=== PATIENT | female | born 1975 | race American Indian/Alaskan Native ===

== ENCOUNTER 2017-05-22 12:58 | Inpatient (IN) | payer MEDICARE, OTHER ==
[2017-05-22 13:08] VITALS: BMI 46.7
--- NOTE | 2017-05-22 13:23 | ED PDOC ---
Arrival/HPI - General Time Seen by Provider: 05/22/17 13:01 - History of Present Illness Narrative History of Present Illness (Text): 05/22/17 13:20 42 year old female with past medical history of DM, HLD, anemia presents for palpitations ongoing for past few days. Patient states that feels like her heart is racing at random times for past few days. This is associated with substernal chest discomfort and shortness of breath. Heart racing occurs at random times. Patient denies having any F/C, recent travels, recent illnesses or sick contacts. Patient also complains of right foot swelling ongoing for a few days. Patient denies having any LE pain though. She denies having any hx of blood clots, no family history of CAD. Patient denies tobacco, ETOH or drug use. Patient does state that she had heavy periods in last few months and periods lasted for about 2 weeks at a time. Time/Duration: < week Symptom Onset: Gradual Symptom Course: Unchanged Context: Home Past Medical History - Provider Review Nursing Documentation Reviewed: Yes - Travel History Have you recently traveled outside [place] w/in the past 3 mons?: No - Infectious Disease Hx of Infectious Diseases: None - Tetanus Immunization Tetanus Immunization: Unknown - Cardiac Hx Cardiac Disorders: Yes (cholesterol) - Pulmonary Hx Respiratory Disorders: No - Neurological Hx Neurological Disorder: No - HEENT Hx HEENT Disorder: No - Renal Hx Renal Disorder: No - Endocrine/Metabolic Hx Endocrine Disorders: Yes Hx Diabetes Mellitus Type 2: Yes - Hematological/Oncological Hx Blood Disorders: Yes Hx Anemia: Yes - Integumentary Hx Dermatological Disorder: No Hx Basal Cell Carcinoma: No - Musculoskeletal/Rheumatological Hx Musculoskeletal Disorders: Yes Hx Falls: Yes - Gastrointestinal Hx Gastrointestinal Disorders: No - Genitourinary/Gynecological Hx Genitourinary Disorders: No - Psychiatric Hx Psychophysiologic Disorder: No Hx Physical Abuse: No Hx Substance Use: No - Anesthesia Hx Anesthesia: No - Suicidal Assessment Feels Threatened In Home Enviroment: No Family/Social History - Physician Review Nursing Documentation Reviewed: Yes Family/Social History: No Known Family HX. denies: CAD/KS, Blood Clots Smoking Status: Never Smoked Hx Alcohol Use: No Hx Substance Use: No Hx Substance Use Treatment: No Allergies/Home Meds Allergies/Adverse Reactions: Allergies shrimp Adverse Reaction (Severe, Uncoded 07/29/16 15:15) ANAPHYLAXIS Home Medications: Home Meds Medication Instructions Recorded Confirmed Rosuvastatin Calcium [Crestor] 10 mg PO DAILY 01/17/16 05/22/17 Ferrous Sulfate [Feosol] 1 tab PO DAILY 05/22/17 05/22/17 Fluconazole [Diflucan] 150 mg PO DAILY 05/22/17 05/22/17 Glimepiride [amaRYL] 4 mg PO DAILY 05/22/17 05/22/17 Review of Systems - Review of Systems Constitutional: Normal. absent: Fatigue, Fevers Eyes: Normal. absent: Vision Changes, Photophobia ENT: Normal. absent: Sore Throat, Rhinorrhea, Sinus Congestion Respiratory: SOB (occasional). absent: Cough, Wheezing Cardiovascular: Chest Pain (occasional ), Palpitations (occasional ). absent: Edema, Calf Pain, Orthopnea, Syncope Gastrointestinal: Normal. absent: Abdominal Pain, Constipation, Diarrhea, Nausea, Vomiting Genitourinary Female: Normal. absent: Dysuria, Frequency, Vaginal Bleeding Musculoskeletal: Normal. absent: Arthralgias, Back Pain, Neck Pain Skin: Normal. absent: Rash, Pruritis, Skin Lesions Neurological: Normal. absent: Headache, Dizziness Endocrine: Normal. absent: Diaphoresis, Polyuria Hemo/Lymphatic: Normal. absent: Adenopathy, Easy Bleeding Physical Exam Vital Signs Reviewed: Yes Vital Signs Temp Pulse Resp BP Pulse Ox 05/22/17 15:14 90 20 125/74 100 05/22/17 14:13 84 18 121/67 100 05/22/17 13:32 98 H 18 120/65 97 05/22/17 12:58 98.1 F 106 H 15 139/80 99 Temperature: Afebrile Blood Pressure: Normal Pulse: Tachycardic Respiratory Rate: Normal Appearance: Positive for: Well-Appearing, Non-Toxic, Comfortable Pain Distress: None Mental Status: Positive for: Alert and Oriented X 3 Finger Stick Blood Glucose: 247 - Systems Exam Head: Present: Atraumatic, Normocephalic Extroacular Muscles: Present: EOMI Mouth: Present: Moist Mucous Membranes Neck: Present: Normal Range of Motion Respiratory/Chest: Present: Clear to Auscultation, Good Air Exchange. No: Respiratory Distress, Accessory Muscle Use, Wheezes, Rales, Rhonchi Cardiovascular: Present: Regular Rate and Rhythm, Normal S1, S2. No: Murmurs, Rub, Gallop, Muffled Abdomen: Present: Normal Bowel Sounds. No: Tenderness, Distention, Peritoneal Signs, Rebound, Guarding Rectal: Present: Gross Blood (likely from vaginal source), Normal Rectal Tone. No: Occult Blood, Rectal Tenderness, Melena, Hemorrhoids, Fissures Upper Extremity: Present: Normal Inspection. No: Cyanosis, Edema Lower Extremity: Present: Normal Inspection, NORMAL PULSES, Normal ROM. No: Edema, CALF TENDERNESS, Yannick's Sign, Tenderness, Swelling Neurological: Present: GCS=15, Speech Normal Skin: Present: Warm, Dry, Normal Color. No: Rashes Psychiatric: Present: Alert, Oriented x 3, Normal Insight, Normal Concentration Medical Decision Making ED Course and Treatment: 05/22/17 13:26 42 year old female presents for palpitations, chest discomfort intermittently. Will check, CBC, CMP, cardiac enzymes, D dimer, PT, PTT, type and screen, CXR and EKG. 05/22/17 14:15 Patient is noted to have acute anemia. Spoke with Dr. Wild who accepts patient for observation under hospitalists service. Will order 1 unit of blood. 05/22/17 14:40 Rectal exam done with RN wound/ostomy nurse in room shows no active rectal bleeding but a lot of vaginal bleeding. 05/22/17 14:41 Consent for blood transfusion is obtained. - Lab Interpretations Narrative Lab Interpretation (Text): 05/22/17 14:39 Hgb is noted to be 8.6 (previously 10.8) Lab Results: 05/22/17 13:30 05/22/17 13:30 Lab Results 05/22/17 13:40: Blood Type O POSITIVE, Antibody Screen Positive, Antibody Identification Anti K, Crossmatch See Detail, BBK History Checked Patient has bt 05/22/17 13:30: TSH 3rd Generation 1.30 05/22/17 13:30: Triglycerides 153, Cholesterol 132, LDL Cholesterol Direct 70, HDL Cholesterol 51 05/22/17 13:30: Hemoglobin A1c 9.3 H 05/22/17 13:30: Iron 15 L, TIBC 355, % Saturation 4 L 05/22/17 13:30: Ferritin 8.5, Vitamin B12 600, Folate 9.0 05/22/17 13:30: Sodium 139, Potassium 3.5 L, Chloride 105, Carbon Dioxide 26, Anion Gap 12, BUN 10, Creatinine 0.6, Est GFR ( Amer) > 60, Est GFR (Non- Af Amer) > 60, Random Glucose 247 H, Calcium 8.9, Total Bilirubin 0.1 L, AST 28 , ALT 40, Alkaline Phosphatase 65, Lactate Dehydrogenase 474, Total Creatine Kinase 200, Troponin I < 0.01, Total Protein 7.1, Albumin 3.6, Globulin 3.5, Albumin/Globulin Ratio 1.0 L 05/22/17 13:30: PT 10.9, INR 1.01, APTT 24.9, D-Dimer, Quantitative 0.25 05/22/17 13:30: WBC 6.8 D, RBC 3.10 L, Hgb 8.6 L, Hct 27.0 L, MCV 87.1, MCH 27.7, MCHC 31.9, RDW 16.5 H, Plt Count 337, MPV 10.2 05/22/17 13:14: POC Glucose (mg/dL) 247 H - RAD Interpretation Narrative RAD Interpretations (Text): 05/22/17 13:29 No active disease Radiology Orders: 05/22/17 13:18 CHEST PORTABLE [RAD] Stat Cement Mason Apprentice: ED Physician - EKG Interpretation EKG Interpretation (Text): 05/22/17 14:40 sinus tachycardia at HR of 103. Normal axis, normal intervals. No ST changes noted Interpreted by ED Physician: Yes Type: 12 lead EKG - Medication Orders Current Medication Orders: Glimepiride (Amaryl) 4 mg PO DAILY [facility] Insulin Human Regular (Humulin R Low) 0 units SC ACHS [facility] PRN Reason: Protocol Last Admin: 05/22/17 22:18 Dose: 2 units Pantoprazole Sodium (Protonix Inj) 40 mg IVP DAILY [facility] Last Admin: 05/22/17 17:36 Dose: 40 mg Discontinued Medications Pneumococcal Polyvalent Vaccine (Pneumovax 23 Vaccine) 0.5 ml IM .ONCE ONE Stop: 05/22/17 21:33 Potassium Chloride (K-Dur 20 Meq Er Tab) 20 meq PO STAT STA Stop: 05/22/17 16:36 Last Admin: 05/22/17 17:35 Dose: 20 meq Disposition/Present on Arrival - Present on Arrival Any Indicators Present on Arrival: Yes History of DVT/PE: No History of Uncontrolled Diabetes: Yes Urinary Catheter: No History of Decub. Ulcer: No History Surgical Site Infection Following: None - Disposition Have Diagnosis and Disposition been Completed?: Yes Diagnosis: Symptomatic anemia Disposition: HOSPITALIZED Disposition Time: 14:15 Patient Plan: Admission, Observation Patient Problems: Current Active Problems Problem Status Onset Symptomatic anemia Acute Condition: STABLE
[2017-05-22 13:45] LABS: MEAN CELL VOLUME 87.1 fl (80.0-105.0); MEAN CORPUSCULAR HEMOGLOBIN 27.7 pg (25.0-35.0); MEAN CORPUSCULAR HGB CONC 31.9 g/dl (31.0-37.0); MEAN PLATELET VOLUME 10.2 fl (7.0-11.0); RED CELL DISTRIBUTION WIDTH 16.5 % (11.5-14.5); WHITE BLOOD COUNT 6.8 10^3/ul (4.5-11.0)
[2017-05-22 13:58] LABS: ALKALINE PHOSPHATASE 65 U/L (38-133); ALT/SGPT 40 U/L (7-56); AST/SGOT 28 U/L (15-39); BILIRUBIN,TOTAL 0.1 mg/dL (0.2-1.3); BLOOD UREA NITROGEN 10 mg/dL (7-21); CALCIUM 8.9 mg/dL (8.4-10.5); CARBON DIOXIDE 26 mmol/L (21-33); CHLORIDE 105 mmol/L (98-107); D DIMER 0.25 mg/L FEU (0-0.50); GFR AFRICAN-AMERICAN > 60; GLUCOSE,RANDOM 247 mg/dL (70-110); INR 1.01 (0.93-1.08); PARTIAL THROMBOPLASTIN TIME 24.9 Seconds (23.7-30.8); POTASSIUM 3.5 mmol/L (3.6-5.0); SODIUM 139 mmol/L (132-148); TOTAL PROTEIN 7.1 g/dL (5.8-8.3)
[2017-05-22 14:09] LABS: TROPONIN I < 0.01 ng/mL
--- NOTE | 2017-05-22 14:46 | RAD ---
HISTORY: chest discomfort COMPARISON: 01/17/2016. FINDINGS: LUNGS: The lungs are well inflated and clear. PLEURA: No significant pleural effusion identified, no pneumothorax apparent. CARDIOVASCULAR: Normal. OSSEOUS STRUCTURES: No significant abnormalities. VISUALIZED UPPER ABDOMEN: Normal. OTHER FINDINGS: None. IMPRESSION: No active pulmonary disease.
[2017-05-22 14:49] LABS: IRON 15 ug/dL (45-180)
[2017-05-22] MEDS ORDERED: Potassium Chloride 20 mEq ER Tab PO STA (16:35)
[2017-05-22 17:19] LABS: CHOLESTEROL 132 mg/dL (130-200)
--- NOTE | 2017-05-22 19:07 | CP.PCM.HP ---
Addendum entered and electronically signed by Velma Gonzalez DO 05/22/17 19:16: Hgb/Hct 8.6/27.0 RDW 16.5 MCV 87.1 D-dimer 0.25 Iron 15 TIBC 355 % Saturation 4 Lipid Panel TG 153 Cholesterol 132 LDL 70 HDL 51 TSH 1.30 Consult: Cardio Consult: Dr. Allen [employer] GRADER consult: Dr. Zuluaga Original Note: <Velma Gonzalez - Last Filed: 05/22/17 18:59> History of Present Illness - History of Present Illness History of Present Illness: History and Physical for Dr. Wild CC: palpitations, symptomatic anemia 42F with significant PMHX for anemia, who reports an onset of dizziness, dyspnea , and palpitations that began earlier today. Patient states that she has had her menstrual period with a heavy flow for the past 3 weeks, requiring about 10 maxi pads per day. She states that over the past week, she has also had intermittent episodes of heart racing and R sided chest pain which last for about 10 minutes and then resolved. Patient was concerned today when her symptoms worsened. She passed a few large clots, which prompting ED visit. She was admitted last year for anemia (Hgb = 6), and was transfused during her admission. In the ED, patient was found to have Hgb=8.6, and on examination, she was found to have acute bleeding from the vagina, but no bleeding from the rectum. 2 units of pRBC were ordered for transfusion. Currently, she reports mild headache and abdominal cramping, however, she denies current palpitations or chest pain. PMHx: uncontrolled DM, HLD PSHX: Denies Meds: Glimeprimide 4 mg BID, Fe 325 mg QD, Unknown insulin 35 units TID Allergies: NKDA Family hx: Denies bleeding problem OBGYN hx: A2/P2D7-3-5-8, not currently sexually active, does not use protection when having intercourse, has not had STD screening Social hx: - Denies smoking, EtOH, or recreational drugs - Lives alone. 19 year old daughter comes home to visit from college, boyfriend occasionally visits ROS: General: Denies fever or chills HEENT: Recent cold symptoms CV: (+) Chest pain, (+) palpitations Respiratory: (+) SOB GI: Denies N/V/D/constipation, denies rectal bleeding : Denies dysuria or urinary burning [employer]AD: (+) menstrual cramps, (+) heavy menstrual bleeding x3 weeks MSK: (+) easy to bruise Neuro: (+) Dizziness today. Denies focal weakness. Present on Admission - Present on Admission Any Indicators Present on Admission: Yes History of DVT/PE: No History of Uncontrolled Diabetes: Yes Urinary Catheter: No Decubitus Ulcer Present: No Past Patient History - Infectious Disease Hx of Infectious Diseases: None - Tetanus Immunizations Tetanus Immunization: Unknown - Past Social History Smoking Status: Never Smoked - CARDIAC Hx Cardiac Disorders: Yes (cholesterol) - PULMONARY Hx Respiratory Disorders: No - NEUROLOGICAL Hx Neurological Disorder: No - HEENT Hx HEENT Problems: No - RENAL Hx Chronic Kidney Disease: No - ENDOCRINE/METABOLIC Hx Endocrine Disorders: Yes Hx Diabetes Mellitus Type 2: Yes - HEMATOLOGICAL/ONCOLOGICAL Hx Blood Disorders: Yes Hx Anemia: Yes - INTEGUMENTARY Hx Dermatological Problems: No Hx Basil Cell: No - MUSCULOSKELETAL/RHEUMATOLOGICAL Hx Musculoskeletal Disorders: Yes Hx Falls: Yes - GASTROINTESTINAL Hx Gastrointestinal Disorders: No - GENITOURINARY/GYNECOLOGICAL Hx Genitourinary Disorders: No - PSYCHIATRIC Hx Psychophysiologic Disorder: No Hx Physical Abuse: No Hx Substance Use: No - SURGICAL HISTORY Hx Surgeries: No - ANESTHESIA Hx Anesthesia: No Meds Allergies/Adverse Reactions: Allergies Allergy/AdvReac Type Severity Reaction Status Date / Time shrimp AdvReac Severe ANAPHYLAXIS Uncoded 07/29/16 15:15 Physical Exam - Constitutional Additional comments: PE: General: Patient is a mid-aged, obese, female, AAOx3, anxious appearing, in mild distress. Skin: Warm, dry Neck: No tender lymphadenopathy HEENT: EOMI, (+) conjunctival pallor, mucous membranes moist. CV: Regular rate and rhythm, S1/S2, no murmurs, gallops, rubs Respiratory: Lungs CTA bilaterally, no wheezes, rales, rhonchi GI: Soft, obese, nondistended, (+) mild epigastric tenderness, no other tenderness. No guarding or rebound. : Deferred to OBGYN Extremities: Nonedematous, nonerythematous, nontender. Good distal pulses Neuro: Patient is conversant, speaking in full sentences, moving all extremities without difficulty. Psych: Normal affect and mood Results - Vital Signs Recent Vital Signs: Last Vital Signs Temp 98.7 F 05/22/17 18:41 Pulse 83 05/22/17 18:41 Resp 20 05/22/17 18:41 BP 127/75 05/22/17 18:41 Pulse Ox 100 05/22/17 16:15 - Labs Result Diagrams: 05/22/17 13:30 05/22/17 13:30 Assessment & Plan - Assessment and Plan (Free Text) Plan: 1. Palpitations, chest pain - Cardiac ISO Q6H - follow thyroid panel (TSH, T4) - cardiac consult, f/u recommendations 2. Symptomatic anemia, vaginal bleeding - transfuse 2 units pRBC, consent obtained - f/u H&H q6H - OBGYN consult, follow up recommendations 3. Diabetes, uncontrolled - sliding scale insulin, Low - continue home meds, glimepyride 4mg POQD - Fingerstick glucose - ACHS - daily CMP GI and DVT prophylaxis: Protonix, SCDs - Date & Time Date: 05/22/17 Time: 16:00 <Martha Wild - Last Filed: 05/23/17 08:07> Results - Vital Signs Recent Vital Signs: Last Vital Signs Temp 97.9 F 05/23/17 07:49 Pulse 77 05/23/17 07:49 Resp 20 05/23/17 07:49 BP 109/67 05/23/17 07:49 Pulse Ox 100 05/23/17 07:49 - Labs Result Diagrams: 05/23/17 05:33 05/23/17 05:33 Labs: Laboratory Results - last 24 hr 05/22/17 05/22/17 05/23/17 18:54 21:56 05:33 WBC 7.1 RBC 3.45 L Hgb 9.6 L Hct 30.1 L MCV 87.2 MCH 27.8 MCHC 31.9 RDW 15.9 H Plt Count 261 MPV 10.6 Gran % 51.8 Lymph % (Auto) 40.6 H Hale % (Auto) 5.8 Eos % (Auto) 1.4 L Baso % (Auto) 0.4 Gran # 3.67 Lymph # 2.9 Hale # 0.4 Eos # 0.1 Baso # 0.03 Sodium Potassium Chloride Carbon Dioxide Anion Gap BUN Creatinine Est GFR ( Amer) Est GFR (Non-Af Amer) POC Glucose (mg/dL) 215 H Random Glucose Calcium Total Bilirubin AST ALT Alkaline Phosphatase Lactate Dehydrogenase 427 Total Creatine Kinase 166 Troponin I < 0.01 Total Protein Albumin Globulin Albumin/Globulin Ratio 05/23/17 05/23/17 05:33 07:37 WBC RBC Hgb Hct MCV MCH MCHC RDW Plt Count MPV Gran % Lymph % (Auto) Hale % (Auto) Eos % (Auto) Baso % (Auto) Gran # Lymph # Hale # Eos # Baso # Sodium 137 Potassium 4.0 Chloride 107 Carbon Dioxide 22 Anion Gap 12 BUN 9 Creatinine 0.6 Est GFR ( Amer) > 60 Est GFR (Non-Af Amer) > 60 POC Glucose (mg/dL) 169 H Random Glucose 167 H Calcium 8.6 Total Bilirubin 0.3 AST 30 ALT 34 Alkaline Phosphatase 59 Lactate Dehydrogenase 536 Total Creatine Kinase 200 Troponin I < 0.01 Total Protein 6.7 Albumin 3.3 Globulin 3.4 Albumin/Globulin Ratio 1.0 L Attending/Attestation - Attestation I have personally seen and examined this patient.: Yes I have fully participated in the care of the patient.: Yes I have reviewed all pertinent clinical information: Yes Notes (Text): 05/22/17 42 year old female old female with past medical history of menorrhagia and diabetes who presents with chest pain, palpitations. Found to have anemia with hemoglobin of 8.6. Will transfuse for symptomatic anemia secondary to vaginal bleeding. Gynecology evaluation is requested. Serial cardiac enzymes ordered as well to rule ACS. Cardiology evaluation is requested. Continue with home medications and glimeryride and insulin ss for diabetes. Martha Wild MD Hospitalist.
[2017-05-22 19:44] LABS: TROPONIN I < 0.01 ng/mL
--- NOTE | 2017-05-22 19:53 | CARD ---
APPROVED REPORT EKG Measurement Heart [id number] <Conclusion> Sinus tachycardia Moderate voltage criteria for LVH, may be normal variant Borderline ECG
[2017-05-22] MEDS ORDERED: Pneumococcal 23-Valent Vaccine IM ONE (21:32)
[2017-05-22] MEDS: Insulin Reg-LOW-Coverage SC SCH (22:18)
[2017-05-23 06:35] LABS: BASO # 0.03 K/mm3 (0.0-2.0); BASO % 0.4 % (0.0-3.0); EOS # 0.1 (0.0-0.7); EOS % 1.4 % (1.5-5.0); GRAN # 3.67 (1.4-6.5); GRAN % 51.8 % (50.0-68.0); HEMATOCRIT 30.1 % (36.0-48.0); LYMPH # 2.9 (1.2-3.4); LYMPH % 40.6 % (22.0-35.0); MEAN CELL VOLUME 87.2 fl (80.0-105.0); MEAN CORPUSCULAR HEMOGLOBIN 27.8 pg (25.0-35.0); MEAN CORPUSCULAR HGB CONC 31.9 g/dl (31.0-37.0); MEAN PLATELET VOLUME 10.6 fl (7.0-11.0); MONO # 0.4 (0.1-0.6); MONO % 5.8 % (1.0-6.0); RED CELL DISTRIBUTION WIDTH 15.9 % (11.5-14.5); WHITE BLOOD COUNT 7.1 10^3/ul (4.5-11.0)
[2017-05-23 06:47] LABS: ALKALINE PHOSPHATASE 59 U/L (38-133); ALT/SGPT 34 U/L (7-56); AST/SGOT 30 U/L (15-39); BILIRUBIN,TOTAL 0.3 mg/dL (0.2-1.3); BLOOD UREA NITROGEN 9 mg/dL (7-21); CALCIUM 8.6 mg/dL (8.4-10.5); CARBON DIOXIDE 22 mmol/L (21-33); CHLORIDE 107 mmol/L (98-107); GFR AFRICAN-AMERICAN > 60; GLUCOSE,RANDOM 167 mg/dL (70-110); SODIUM 137 mmol/L (132-148); TOTAL PROTEIN 6.7 g/dL (5.8-8.3)
[2017-05-23 06:58] LABS: TROPONIN I < 0.01 ng/mL
[2017-05-23 08:27] LABS: FREE T4 1.15 ng/dL (0.78-2.19)
[2017-05-23 08:41] LABS: THYROID STIMULATING HORMONE 3.09 mIU/mL (0.46-4.68)
[2017-05-23] MEDS: Insulin Reg-LOW-Coverage SC SCH ×4 (09:06→21:25)
--- NOTE | 2017-05-23 13:20 | CP.PCM.PN ---
<LisaVelma - Last Filed: 05/23/17 16:20> Subjective - Date & Time of Evaluation Date of Evaluation: 05/23/17 Time of Evaluation: 13:19 - Subjective Subjective: Progress note for Dr. Wild H/H 9.30.1 Patient S&E at bedside. JASON. Patient was transfused two units of blood had 4 pads changed overnight and 2 pads in the morning prior to visit. Patient denies fever, dizziness, chills, nausea, vomiting. admits to lower abdominal pain. described as cramping. Patient scheduled for pelvic ultrasound per OBGYN today. Objective - Vital Signs/Intake and Output Vital Signs (last 24 hours): Temp Pulse Resp BP Pulse Ox 97.9 F 77 20 109/67 100 05/23/17 07:49 05/23/17 07:49 05/23/17 07:49 05/23/17 07:49 05/23/17 07:49 Intake and Output: 05/23/17 05/23/17 06:59 18:59 Intake Total 1310 Output Total 700 Balance 610 - Medications Medications: Current Medications Alprazolam (Xanax) 0.5 mg PO ONCE PRN; Protocol PRN Reason: Anxiety Glimepiride (Amaryl) 4 mg PO DAILY [facility] Last Admin: 05/23/17 09:11 Dose: 4 mg Iron Sucrose 100 mg/ Sodium (Chloride) 105 mls @ 210 mls/hr IVPB ONCE ONE Stop: 05/23/17 13:35 Insulin Human Regular (Humulin R Low) 0 units SC ACHS [facility] PRN Reason: Protocol Last Admin: 05/23/17 09:06 Dose: 1 units Pantoprazole Sodium (Protonix Inj) 40 mg IVP DAILY [facility] Last Admin: 05/23/17 09:11 Dose: 40 mg - Labs Labs: 05/23/17 05:33 05/23/17 05:33 PT 10.9 Seconds (9.9-11.8) 05/22/17 13:30 INR 1.01 (0.93-1.08) 05/22/17 13:30 APTT 24.9 Seconds (23.7-30.8) 05/22/17 13:30 - Constitutional Appears: Non-toxic, No Acute Distress - Head Exam Head Exam: NORMAL INSPECTION - Eye Exam Eye Exam: EOMI, Normal appearance - ENT Exam ENT Exam: Mucous Membranes Moist - Neck Exam Neck Exam: Full ROM - Respiratory Exam Respiratory Exam: Clear to Ausculation Bilateral. absent: Accessory Muscle Use , Respiratory Distress - Cardiovascular Exam Cardiovascular Exam: REGULAR RHYTHM, +S1, +S2 - GI/Abdominal Exam GI & Abdominal Exam: Soft, Normal Bowel Sounds - Extremities Exam Extremities Exam: Full ROM, Normal Inspection. absent: Pedal Edema, Tenderness - Neurological Exam Neurological Exam: Alert, Awake, Normal Gait - Psychiatric Exam Psychiatric exam: Normal Affect, Normal Mood. absent: Flat Affect - Skin Skin Exam: Dry, Intact, Normal Color, Warm Assessment and Plan - Assessment and Plan (Free Text) Assessment: 42F seen for symptomatic anemia. PMH palpitations, anemia, vaginal bleeding Plan: 1. Palpitations, chest pain - Cardiac ISO Q6H, negative - TSH 1.30 - cardiac consult, f/u recommendations 2. Symptomatic anemia, vaginal bleeding - transfuse 2 units pRBC, consent obtained - f/u H&H q6H - 05/23 MCV 87.2 - OBGYN consult, follow up recommendations - pelvic ultrasound ordered, xanax ordered for anxiety, to be administered prior to procedure 3. Diabetes, uncontrolled - sliding scale insulin, Low - continue home meds, glimepiride 4mg POQD - Fingerstick glucose - ACHS - daily CMP Admitting labs Hgb/Hct 8.6/27.0 RDW 16.5 MCV 87.1 D-dimer 0.25 Iron 15 TIBC 355 % Saturation 4 Lipid Panel TG 153 Cholesterol 132 LDL 70 HDL 51 GI and DVT prophylaxis: Protonix, SCDs <Martha Wild - Last Filed: 05/24/17 07:02> Objective - Vital Signs/Intake and Output Vital Signs (last 24 hours): Temp Pulse Resp BP Pulse Ox 98.9 F 60 18 140/79 99 05/23/17 16:18 05/24/17 06:00 05/23/17 16:18 05/23/17 16:18 05/23/17 16:18 Intake and Output: 05/23/17 05/24/17 18:59 06:59 Intake Total 800 Balance 800 - Medications Medications: Current Medications Alprazolam (Xanax) 0.5 mg PO ONCE PRN; Protocol PRN Reason: Anxiety Glimepiride (Amaryl) 4 mg PO BRK [facility] Insulin Human Regular (Humulin R Low) 0 units SC ACHS [facility] PRN Reason: Protocol Last Admin: 05/23/17 21:25 Dose: Not Given Pantoprazole Sodium (Protonix Ec Tab) 40 mg PO 0600 [facility] Last Admin: 05/24/17 06:23 Dose: 40 mg - Labs Labs: PT 10.9 Seconds (9.9-11.8) 05/22/17 13:30 INR 1.01 (0.93-1.08) 05/22/17 13:30 APTT 24.9 Seconds (23.7-30.8) 05/22/17 13:30 Attending/Attestation - Attestation I have personally seen and examined this patient.: Yes I have fully participated in the care of the patient.: Yes I have reviewed all pertinent clinical information, including history, physical exam and plan: Yes Notes (Text): 05/23/17 42 year old female old female with past medical history of menorrhagia and diabetes who presented with chest pain and palpitations. Also complained of heavy vaginal bleeding. She was found to have anemia with hemoglobin of 8.6. Hemoglobin after 2 units of prbc transfusion today is 9.6. Serial cardiac enzymes are negative and ACS was ruled out. Cardiology evaluation was appreciated; recommended echocardiogram and outpatient stress test once symptoms resolve. Today she still reports feeling dizzy with ambulation. Vaginal bleeding is improving. Gynecology evaluation was requested who ordered for pelvic sonogram. Hemoglobin today is 9.6 and she be started on iv iron. Continue with home medications and glimeryride and insulin ss for diabetes. Martha Wild MD Hospitalist.
--- NOTE | 2017-05-23 14:37 | CON ---
DATE: 05/23/2017 INDICATIONS: Chest pain, shortness of breath, palpitations, anemia, and vaginal bleeding. HISTORY OF PRESENT ILLNESS: This is a 42-year-old woman admitted yesterday to the emergency room, when she presented with a history of about one to two weeks of palpitations, worsening, and chest discomfort which is left upper chest and sometimes exertional in nature. There was also shortness of breath. She was found to be anemic in the emergency room and was noted to have heavy vaginal bleeding. She was admitted to telemetry. She received blood transfusions and this morning she is resting comfortably in bed without symptoms including no chest pain, shortness of breath, palpitations. There is no orthopnea, PND, syncope, presyncope, lightheadedness, dizziness, vertigo, fever, chills, cough, sputum production, hemoptysis, abdominal pain, nausea, vomiting, diarrhea, constipation, and melena. PAST MEDICAL HISTORY: Notable for menometrorrhagia, anemia, prior transfusion requirement, diabetes, hyperlipidemia, obesity, pyelonephritis. There is no history of rheumatic fever, myocardial infarction, congestive heart failure, arrhythmia, stroke, TIA, and gout. MEDICATIONS: Include glimepiride, iron supplementation, insulin, Diflucan, and Crestor. ALLERGIES: SHE NOTES AN ALLERGY TO SHRIMP, NO MEDICATION ALLERGIES. FAMILY HISTORY: Noncontributory. REVIEW OF SYSTEMS: A 10-point review of systems is otherwise unremarkable except as noted above. SOCIAL HISTORY: She lives at home. She does not smoke. She does not drink. She does not use drugs. PHYSICAL EXAMINATION: GENERAL: On physical examination, she is well-developed woman, lying in bed on telemetry in no acute distress. VITAL SIGNS: She is in sinus rhythm at 83 beats per minute, afebrile, blood pressure 109/67, respirations 16-20, and O2 sat 100% on room air. HEENT: Mucous membranes are moist. Conjunctivae pink. NECK: Supple. Reveals no neck vein distention, thyromegaly, or carotid bruits. LUNGS: Anders are clear. HEART: Examination of the heart reveals normal first and second heart sounds. ABDOMEN: Soft. Bowel sounds present. No mass, organomegaly, tenderness, rebound, guarding. No CVA tenderness. No palpable abdominal aortic aneurysm. EXTREMITIES: Exam reveals no cyanosis, clubbing, or edema. NEUROLOGIC: She is awake, alert, and oriented. PSYCHIATRIC: Normal as to mood and affect. SKIN: Warm and dry. No rash or cellulitis. LABORATORY DATA AND IMAGING: Chest x-ray reveals no active disease. EKG reveals sinus tachycardia, nonspecific ST wave changes, no change from the prior EKG. White count normal, platelets count normal, hemoglobin initially 8.6, repeat today 9.6, and hematocrit initially 27, repeat today 30.1. PT, INR, PTT, and D-dimer all negative. Electrolytes initially show potassium of 3.5, repeat today 4.0, BUN and creatinine normal. Blood sugar 247. Hemoglobin A1c 9.3. Iron is low. Percent saturation is low. Liver function test unremarkable. CK 200. Troponins are negative x3. B12 and folate normal. Total cholesterol 132, triglycerides 153, LDL 70, and HDL 51, and TSH normal. IMPRESSION: Lorie Jensen is a 42-year-old woman who presents with palpitations, chest pain, dyspnea in the sitting of anemia due to perfuse vaginal bleeding. Her symptoms have improved with transfusion. There is no evidence of acute myocardial infarction by serial enzymes. Her initial EKG was benign as well. At this time, she will undergo anemia workup and a LAND DEPARTMENT [facility] evaluation. I will get an echocardiogram. I will repeat her EKG this morning. Once she is stabilized, she can by considered for stress testing perhaps on an outpatient basis. Blood sugars should be monitored. She may need a better diabetic control. She can be out of bed. I will follow along with you and make additional recommendation based on her clinical course. Alphonso Allen MD MTDJori
--- NOTE | 2017-05-23 15:26 | CARD ---
APPROVED REPORT EKG Measurement Heart [id number] <Conclusion> Normal sinus rhythm Moderate voltage criteria for LVH, may be normal variant Borderline ECG
[2017-05-23 16:18] VITALS: RESP 18
[2017-05-24] MEDS: Pantoprazole 40 mg EC Tab PO SCH (06:23)
--- NOTE | 2017-05-24 06:52 | CP.PCM.PN ---
Addendum entered and electronically signed by Maria E Leigh DO 05/24/17 13:39: Ordered Iron Sucrose 200mg ivpb x [address] Torri Leigh [email or web address] Original Note: <Maria E Leigh - Last Filed: 05/24/17 13:09> Subjective - Date & Time of Evaluation Date of Evaluation: 05/24/17 Time of Evaluation: 07:30 - Subjective Subjective: PGY2 Medicine note for Dr. Wild Patient seen and examined at bedside. No acute events overnight as per nursing. Patient continues to report "lots of bleeding" and had to change her pads 3-4x this morning with every time wearing 3 pads. Reports she is noticing some clots at this time. She denies any lightheadedness, dizziness, SOB, or unsteady gait. Patient also denies headache, chest pain, palpitations, abdominal pain, bowel/ bladder complaints, pain/swelling in her legs bilaterally. She is ambulating and tolerating diet. Objective - Vital Signs/Intake and Output Vital Signs (last 24 hours): Temp Pulse Resp BP Pulse Ox 98.9 F 60 18 140/79 99 05/23/17 16:18 05/24/17 06:00 05/23/17 16:18 05/23/17 16:18 05/23/17 16:18 Intake and Output: 05/23/17 05/24/17 18:59 06:59 Intake Total 800 Balance 800 - Medications Medications: Current Medications Alprazolam (Xanax) 0.5 mg PO ONCE PRN; Protocol PRN Reason: Anxiety Glimepiride (Amaryl) 4 mg PO BRK [facility] Insulin Human Regular (Humulin R Low) 0 units SC ACHS [facility] PRN Reason: Protocol Last Admin: 05/23/17 21:25 Dose: Not Given Pantoprazole Sodium (Protonix Ec Tab) 40 mg PO 0600 [facility] Last Admin: 05/24/17 06:23 Dose: 40 mg - Labs Labs: PT 10.9 Seconds (9.9-11.8) 05/22/17 13:30 INR 1.01 (0.93-1.08) 05/22/17 13:30 APTT 24.9 Seconds (23.7-30.8) 05/22/17 13:30 - Constitutional Appears: Non-toxic, No Acute Distress - Head Exam Head Exam: NORMAL INSPECTION, NORMOCEPHALIC - Eye Exam Eye Exam: EOMI, Normal appearance, PERRL. absent: Conjunctival injection, Scleral icterus - ENT Exam ENT Exam: Mucous Membranes Moist - Neck Exam Neck Exam: Full ROM, Normal Inspection. absent: Tenderness - Respiratory Exam Respiratory Exam: Clear to Ausculation Bilateral, NORMAL BREATHING PATTERN. absent: Accessory Muscle Use, Rales, Rhonchi, Wheezes, Respiratory Distress - Cardiovascular Exam Cardiovascular Exam: REGULAR RHYTHM, RRR, +S1, +S2. absent: Murmur - GI/Abdominal Exam GI & Abdominal Exam: Soft, Normal Bowel Sounds. absent: Firm, Guarding, Rigid, Tenderness - Extremities Exam Extremities Exam: Normal Inspection. absent: Pedal Edema, Tenderness - Neurological Exam Neurological Exam: Alert, Awake, Oriented x3 - Psychiatric Exam Psychiatric exam: Normal Affect, Normal Mood - Skin Skin Exam: Dry, Intact, Normal Color, Warm Assessment and Plan - Assessment and Plan (Free Text) Assessment: 42yo AA female PMHx anemia, palpitations, vaginal bleeding presented with symptomatic anemia Plan: Chest pain r/o ACS - likely secondary to anemia vs anxiety - DAV negative x 3 - EKG no acute ST changes x 3 - Thyroid panel WNL TSH 1.30 --> 3.09 Free T4 1.15 - Lipid Panel TG 153 Cholesterol 132 LDL 70 HDL 51 - As per cardiology, elective nuclear stress test outpatient - Echo 05/23: EF 56%, LV normal size, LV wall thickeness normal, LV function wnl - Cardiology Dr. Allen Symptomatic anemia - dizziness, dyspnea, and palpitations likely secondary to anemia secondary to vaginal bleeding - s/p 2U PRBC transfusion - Anemia workup Iron 15 TIBC 355 % Saturation 4 Ferritin 8.5 Vitamin b12 600 Folate 9 - f/u H&H this AM and transfuse or give IV iron as necessary - f/u pelvic u/s - Refractory Products Supervisor Dr Zuluaga consulted Uncontrolled DM2 - HgbA1c 9.3 - RISS - Accucheck ACHS - Glimepiride 4mg po daily - conservation educator on board GI ppx: Protonix 40mg po daily DVT ppx: VTE c/i secondary to bleed; SCDs Diet: Consistent carb diet Case discussed with Dr. Torri Leigh PGY2 <Martha Wild - Last Filed: 05/24/17 15:12> Objective - Vital Signs/Intake and Output Vital Signs (last 24 hours): Temp Pulse Resp BP Pulse Ox 98.8 F 74 18 85/49 L 97 05/24/17 08:41 05/24/17 08:41 05/24/17 08:41 05/24/17 08:41 05/24/17 08:41 Intake and Output: 05/24/17 05/24/17 06:59 18:59 Intake Total 800 900 Balance 800 900 - Medications Medications: Current Medications Alprazolam (Xanax) 0.5 mg PO ONCE PRN; Protocol PRN Reason: Anxiety Glimepiride (Amaryl) 4 mg PO BRK [facility] Last Admin: 05/24/17 08:00 Dose: 4 mg Insulin Human Regular (Humulin R Low) 0 units SC ACHS [facility] PRN Reason: Protocol Last Admin: 05/24/17 13:03 Dose: 3 units Pantoprazole Sodium (Protonix Ec Tab) 40 mg PO 0600 [facility] Last Admin: 05/24/17 06:23 Dose: 40 mg - Labs Labs: 05/24/17 13:45 05/24/17 13:45 PT 10.9 Seconds (9.9-11.8) 05/22/17 13:30 INR 1.01 (0.93-1.08) 05/22/17 13:30 APTT 24.9 Seconds (23.7-30.8) 05/22/17 13:30 Attending/Attestation - Attestation I have personally seen and examined this patient.: Yes I have fully participated in the care of the patient.: Yes I have reviewed all pertinent clinical information, including history, physical exam and plan: Yes Notes (Text): 05/24/17 15:09 42 year old female old female with past medical history of menorrhagia and diabetes who presented with chest pain and palpitations. Also complained of heavy vaginal bleeding. She was found to have anemia with hemoglobin of 8.6. She received prbc transfusion and iv iron yesterday and today. She still reports bleeding but slowly improving. Gynecology evaluation is pending. Pelvic sonogram was done with pending results. Serial cardiac enzymes are negative and ACS was ruled out. Cardiology is following the patient and has recommended outpatient stress test once symptoms resolve. Echocardiogram was reviewed. Continue with home medications and glimeryride and insulin ss for diabetes. Martha Wild MD Hospitalist.
--- NOTE | 2017-05-24 07:14 | CARD ---
APPROVED REPORT EXAM: Two-dimensional and M-mode echocardiogram with Doppler and color Doppler. Other Information Quality : AverageRhythm : INDICATION Dyspnea Chest Pain 2D DIMENSIONS Left Atrium (2D)4.0 (1.6-4.0cm)IVSd1.1 (0.7-1.1cm) LVDd4.7 (3.9-5.9cm)PWd1.1 (0.7-1.1cm) LVDs3.3 (2.5-4.0cm)FS (%) 29.6 % LVEF (%)56.0 (>50%) M-Mode DIMENSIONS Aortic Root2.50 (2.2-3.7cm)Aortic Cusp Exc.1.70 (1.5-2.0cm) Aortic Valve AoV Peak Ttkzzloy820.0cm/s Mitral Valve MV E Bdhggwcj24.4cm/sMV A Eebulbrn41.0cm/sE/A ratio1.2 TDI Lateral E' Peak V12.80cm/sMedial E' Peak V7.21cm/sE/Lateral E'6.9 E/Medial E'12.3 Pulmonary Valve PV Peak Iqemmdnq41.1cm/sPV Peak Grad.2mmHg Tricuspid Valve TR Peak [id number]/sRAP [id number] Peak Gr.19mmHg [id number] LEFT VENTRICLE The left ventricle is normal size. There is normal left ventricular wall thickness. The left ventricular function is normal. The left ventricular ejection fraction is within the normal range. There is normal LV segmental wall motion. RIGHT VENTRICLE The right ventricle is normal size. ATRIA The left atrium size is normal. The right atrium size is normal. The interatrial septum is intact with no evidence for an atrial septal defect. AORTIC VALVE The aortic valve is normal in structure. MITRAL VALVE The mitral valve is normal in structure. Mitral regurgitation is trace. TRICUSPID VALVE The tricuspid valve is normal in structure. There is trace tricuspid regurgitation. PULMONIC VALVE The pulmonic valve is not well visualized. There is trace pulmonic valvular regurgitation. GREAT VESSELS The aortic root is normal in size. PERICARDIAL EFFUSION There is no pericardial effusion. <Conclusion> The left ventricle is normal size. There is normal left ventricular wall thickness. The left ventricular function is normal.
--- NOTE | 2017-05-24 07:41 | CP.PCM.PN ---
Subjective - Date & Time of Evaluation Date of Evaluation: 05/24/17 Time of Evaluation: 07:00 - Subjective Subjective: Stable on 3R tel. No CP or SOB. Still copious vag. bleeding. V/S stable. RSR PE: Lungs: clear Cor.: S1S2 Abd.: soft Ext.: no edema Neuro.: alert Trops neg x 3 sets. Today's labs pending. ECG: RSR, LAD, no acute change Pelvis U/S- pending. Echo; Nl LV. Trace MR, TR and PI. Objective - Vital Signs/Intake and Output Vital Signs (last 24 hours): Temp Pulse Resp BP Pulse Ox 98.9 F 60 18 140/79 99 05/23/17 16:18 05/24/17 06:00 05/23/17 16:18 05/23/17 16:18 05/23/17 16:18 Intake and Output: 05/24/17 05/24/17 06:59 18:59 Intake Total 800 Balance 800 - Medications Medications: Current Medications Alprazolam (Xanax) 0.5 mg PO ONCE PRN; Protocol PRN Reason: Anxiety Glimepiride (Amaryl) 4 mg PO BRK [facility] Insulin Human Regular (Humulin R Low) 0 units SC ACHS [facility] PRN Reason: Protocol Last Admin: 05/23/17 21:25 Dose: Not Given Pantoprazole Sodium (Protonix Ec Tab) 40 mg PO 0600 [facility] Last Admin: 05/24/17 06:23 Dose: 40 mg - Labs Labs: PT 10.9 Seconds (9.9-11.8) 05/22/17 13:30 INR 1.01 (0.93-1.08) 05/22/17 13:30 APTT 24.9 Seconds (23.7-30.8) 05/22/17 13:30 Assessment and Plan - Assessment and Plan (Free Text) Assessment: CP/SOB/Palpitations in setting severe anemia Vaginal bleeding Diabetes Obesity H/O pyelonephritis Plan: Await AM labs, H/H, pelvis U/S results Barrel Driller evaluation Elective nuclear stress test, possible out-pt. I spoke with Dr. Burger yesterday.
[2017-05-24 08:43] VITALS: O2SAT 97
[2017-05-24] MEDS: Insulin Reg-LOW-Coverage SC SCH ×4 (10:27→21:59)
--- NOTE | 2017-05-24 14:02 | US ---
HISTORY: vaginal bleed COMPARISON: Comparison made with CT scan of the abdomen and pelvis 07/29/2016 TECHNIQUE: Transabdominal sonographic evaluation of the pelvis performed. FINDINGS: UTERUS: Measures approximately 11.2 x 5.3 x 7.2 cm . Uterus appears heterogeneous which is nonspecific ENDOMETRIUM: Measures approximate 1.01 mm in diameter. Unremarkable. CERVIX: No cervical abnormality identified. RIGHT OVARY: Measures approximately 5.0 x 3.6 x 3.5 cm. . There is a right ovarian cyst that measures 3.2 x 2.3 x 2.4 cm No solid mass. Normal flow. LEFT OVARY: Left ovary not visualized. FREE FLUID: No significant free fluid noted. OTHER FINDINGS: None. IMPRESSION: Small right ovarian cyst as described. Left ovary is not visualized. Heterogeneous uterine parenchyma nonspecific.
[2017-05-24 14:30] LABS: BASO # 0.03 K/mm3 (0.0-2.0); BASO % 0.4 % (0.0-3.0); EOS # 0.1 (0.0-0.7); EOS % 1.3 % (1.5-5.0); GRAN # 4.44 (1.4-6.5); GRAN % 58.9 % (50.0-68.0); HEMATOCRIT 33.3 % (36.0-48.0); LYMPH # 2.6 (1.2-3.4); LYMPH % 34.6 % (22.0-35.0); MEAN CELL VOLUME 87.6 fl (80.0-105.0); MEAN CORPUSCULAR HEMOGLOBIN 28.2 pg (25.0-35.0); MEAN CORPUSCULAR HGB CONC 32.1 g/dl (31.0-37.0); MEAN PLATELET VOLUME 10.2 fl (7.0-11.0); MONO # 0.4 (0.1-0.6); MONO % 4.8 % (1.0-6.0); RED CELL DISTRIBUTION WIDTH 15.9 % (11.5-14.5); WHITE BLOOD COUNT 7.5 10^3/ul (4.5-11.0)
[2017-05-24 14:37] LABS: ALKALINE PHOSPHATASE 67 U/L (38-133); ALT/SGPT 31 U/L (7-56); AST/SGOT 26 U/L (15-39); BILIRUBIN,TOTAL 0.3 mg/dL (0.2-1.3); BLOOD UREA NITROGEN 9 mg/dL (7-21); CALCIUM 9.3 mg/dL (8.4-10.5); CARBON DIOXIDE 24 mmol/L (21-33); CHLORIDE 104 mmol/L (98-107); GFR AFRICAN-AMERICAN > 60; GLUCOSE,RANDOM 148 mg/dL (70-110); MAGNESIUM 1.9 mg/dL (1.7-2.2); PHOSPHOROUS 3.8 mg/dL (2.5-4.5); POTASSIUM 4.1 mmol/L (3.6-5.0); SODIUM 139 mmol/L (132-148); TOTAL PROTEIN 8.1 g/dL (5.8-8.3)
[2017-05-25] MEDS: Pantoprazole 40 mg EC Tab PO SCH (05:38)
--- NOTE | 2017-05-25 06:28 | CP.PCM.PN ---
Objective - Vital Signs/Intake and Output Vital Signs (last 24 hours): Temp Pulse Resp BP Pulse Ox 98.8 F 71 18 85/49 L 97 05/24/17 08:41 05/25/17 06:00 05/24/17 08:41 05/24/17 08:41 05/24/17 08:41 Intake and Output: 05/24/17 05/25/17 18:59 06:59 Intake Total 900 Balance 900 - Medications Medications: Current Medications Alprazolam (Xanax) 0.5 mg PO ONCE PRN; Protocol PRN Reason: Anxiety Glimepiride (Amaryl) 4 mg PO BRK [facility] Last Admin: 05/24/17 08:00 Dose: 4 mg Insulin Human Regular (Humulin R Low) 0 units SC [facility] PRN Reason: Protocol Last Admin: 05/24/17 21:59 Dose: Not Given Pantoprazole Sodium (Protonix Ec Tab) 40 mg PO 0600 [facility] Last Admin: 05/25/17 05:38 Dose: 40 mg - Labs Labs: 05/24/17 13:45 05/24/17 13:45 PT 10.9 Seconds (9.9-11.8) 05/22/17 13:30 INR 1.01 (0.93-1.08) 05/22/17 13:30 APTT 24.9 Seconds (23.7-30.8) 05/22/17 13:30
[2017-05-25 07:26] VITALS: BP 112/64; TEMP 97.4
--- NOTE | 2017-05-25 07:43 | CP.PCM.PN ---
Subjective - Date & Time of Evaluation Date of Evaluation: 05/25/17 Time of Evaluation: 07:00 - Subjective Subjective: Stable on 3R tel. No CP or SOB. Still vag. bleeding. V/S stable. RSR PE: Lungs: clear Cor.: S1S2 Abd.: soft Ext.: no edema Neuro.: alert Trops neg x 3 sets. Labs 05/24 noted. H/H ECG: RSR, LAD, no acute change Pelvis U/S noted Echo; Nl LV. Trace MR, TR and PI. Objective - Vital Signs/Intake and Output Vital Signs (last 24 hours): Temp Pulse Resp BP Pulse Ox 97.4 F L 84 18 112/64 97 05/25/17 07:25 05/25/17 07:25 05/25/17 07:25 05/25/17 07:25 05/25/17 07:25 - Medications Medications: Current Medications Alprazolam (Xanax) 0.5 mg PO ONCE PRN; Protocol PRN Reason: Anxiety Glimepiride (Amaryl) 4 mg PO BRK [facility] Last Admin: 05/24/17 08:00 Dose: 4 mg Insulin Human Regular (Humulin R Low) 0 units SC ACHS [facility] PRN Reason: Protocol Last Admin: 05/24/17 21:59 Dose: Not Given Pantoprazole Sodium (Protonix Ec Tab) 40 mg PO 0600 [facility] Last Admin: 05/25/17 05:38 Dose: 40 mg - Labs Labs: 05/24/17 13:45 05/24/17 13:45 PT 10.9 Seconds (9.9-11.8) 05/22/17 13:30 INR 1.01 (0.93-1.08) 05/22/17 13:30 APTT 24.9 Seconds (23.7-30.8) 05/22/17 13:30 Assessment and Plan - Assessment and Plan (Free Text) Assessment: CP/SOB/Palpitations in setting severe anemia Vaginal bleeding Diabetes Obesity H/O pyelonephritis Plan: Await Flow Specialist evaluation. Elective nuclear stress test, possible out-pt. I spoke with Dr. Burger yesterday.
[2017-05-25] MEDS: Insulin Reg-LOW-Coverage SC SCH ×2 (08:17→12:24)
[2017-05-25 09:57] LABS: BASO # 0.03 K/mm3 (0.0-2.0); BASO % 0.4 % (0.0-3.0); EOS # 0.1 (0.0-0.7); EOS % 1.6 % (1.5-5.0); GRAN # 4.32 (1.4-6.5); GRAN % 63.3 % (50.0-68.0); HEMATOCRIT 32.6 % (36.0-48.0); LYMPH # 2.1 (1.2-3.4); LYMPH % 30.2 % (22.0-35.0); MEAN CELL VOLUME 87.6 fl (80.0-105.0); MEAN CORPUSCULAR HGB CONC 31.9 g/dl (31.0-37.0); MEAN PLATELET VOLUME 9.9 fl (7.0-11.0); MONO # 0.3 (0.1-0.6); MONO % 4.5 % (1.0-6.0); RED CELL DISTRIBUTION WIDTH 15.7 % (11.5-14.5); WHITE BLOOD COUNT 6.8 10^3/ul (4.5-11.0)
[2017-05-25 10:04] LABS: ALKALINE PHOSPHATASE 63 U/L (38-133); ALT/SGPT 35 U/L (7-56); AST/SGOT 24 U/L (15-39); BILIRUBIN,TOTAL 0.3 mg/dL (0.2-1.3); BLOOD UREA NITROGEN 10 mg/dL (7-21); CALCIUM 9.2 mg/dL (8.4-10.5); CARBON DIOXIDE 25 mmol/L (21-33); CHLORIDE 104 mmol/L (98-107); GFR AFRICAN-AMERICAN > 60; GLUCOSE,RANDOM 218 mg/dL (70-110); MAGNESIUM 1.8 mg/dL (1.7-2.2); PHOSPHOROUS 3.5 mg/dL (2.5-4.5); POTASSIUM 4.4 mmol/L (3.6-5.0); SODIUM 137 mmol/L (132-148); TOTAL PROTEIN 7.5 g/dL (5.8-8.3)
--- NOTE | 2017-05-25 11:04 | CP.PCM.DIS ---
<Maria E Leigh - Last Filed: 06/03/17 07:51> Provider - Provider Date of Admission: 05/23/17 15:56 Attending physician: Martha Wild MD Primary care physician: Ernst Burger MD Consults: Dr Allen cardiology Dr. Margareth Quinones Time Spent in preparation of Discharge (in minutes): 45 Hospital Course - Lab Results Lab Results: Most Recent Lab Values WBC 6.8 10^3/ul (4.5-11.0) 05/25/17 09:30 RBC 3.72 10^6/uL (3.5-6.1) 05/25/17 09:30 Hgb 10.4 g/dL (12.0-16.0) L 05/25/17 09:30 Hct 32.6 % (36.0-48.0) L 05/25/17 09:30 MCV 87.6 fl (80.0-105.0) 05/25/17 09:30 MCH 28.0 pg (25.0-35.0) 05/25/17 09:30 MCHC 31.9 g/dl (31.0-37.0) 05/25/17 09:30 RDW 15.7 % (11.5-14.5) H 05/25/17 09:30 Plt Count 345 10^3/uL (120.0-450.0) 05/25/17 09:30 MPV 9.9 fl (7.0-11.0) 05/25/17 09:30 Gran % 63.3 % (50.0-68.0) 05/25/17 09:30 Lymph % (Auto) 30.2 % (22.0-35.0) 05/25/17 09:30 [place]lee % (Auto) 4.5 % (1.0-6.0) 05/25/17 09:30 Eos % (Auto) 1.6 % (1.5-5.0) 05/25/17 09:30 Baso % (Auto) 0.4 % (0.0-3.0) 05/25/17 09:30 Gran # 4.32 (1.4-6.5) 05/25/17 09:30 Lymph # 2.1 (1.2-3.4) 05/25/17 09:30 Greenlee # 0.3 (0.1-0.6) 05/25/17 09:30 Eos # 0.1 (0.0-0.7) 05/25/17 09:30 Baso # 0.03 K/mm3 (0.0-2.0) 05/25/17 09:30 PT 10.9 Seconds (9.9-11.8) 05/22/17 13:30 INR 1.01 (0.93-1.08) 05/22/17 13:30 APTT 24.9 Seconds (23.7-30.8) 05/22/17 13:30 D-Dimer, Quantitative 0.25 mg/L FEU (0-0.50) 05/22/17 13:30 Sodium 137 mmol/L (132-148) 05/25/17 09:30 Potassium 4.4 mmol/L (3.6-5.0) 05/25/17 09:30 Chloride 104 mmol/L (98-107) 05/25/17 09:30 Carbon Dioxide 25 mmol/L (21-33) 05/25/17 09:30 Anion Gap 12 (10-20) 05/25/17 09:30 BUN 10 mg/dL (7-21) 05/25/17 09:30 Creatinine 0.7 mg/dL (0.5-1.4) 05/25/17 09:30 Est GFR ( Amer) > 60 05/25/17 09:30 Est GFR (Non-Af Amer) > 60 05/25/17 09:30 POC Glucose (mg/dL) 156 mg/dL (65-110) H 05/25/17 07:21 Random Glucose 218 mg/dL (70-110) H 05/25/17 09:30 Hemoglobin A1c 9.3 % (4.2-6.5) H 05/22/17 13:30 Calcium 9.2 mg/dL (8.4-10.5) 05/25/17 09:30 Phosphorus 3.5 mg/dL (2.5-4.5) 05/25/17 09:30 Magnesium 1.8 mg/dL (1.7-2.2) 05/25/17 09:30 Iron 15 ug/dL (45-180) L 05/22/17 13:30 TIBC 355 ug/dL (265-497) 05/22/17 13:30 % Saturation 4 % (20-55) L 05/22/17 13:30 Ferritin 8.5 ng/mL 05/22/17 13:30 Total Bilirubin 0.3 mg/dL (0.2-1.3) 05/25/17 09:30 AST 24 U/L (15-39) 05/25/17 09:30 ALT 35 U/L (7-56) 05/25/17 09:30 Alkaline Phosphatase 63 U/L (38-133) 05/25/17 09:30 Lactate Dehydrogenase 536 U/L (333-699) 05/23/17 05:33 Total Creatine Kinase 200 U/L (35-230) 05/23/17 05:33 Troponin I < 0.01 ng/mL 05/23/17 05:33 Total Protein 7.5 g/dL (5.8-8.3) 05/25/17 09:30 Albumin 3.8 g/dL (3.0-4.8) 05/25/17 09:30 Globulin 3.7 gm/dL 05/25/17 09:30 Albumin/Globulin Ratio 1.0 (1.1-1.8) L 05/25/17 09:30 Triglycerides 153 mg/dL (35-160) 05/22/17 13:30 Cholesterol 132 mg/dL (130-200) 05/22/17 13:30 LDL Cholesterol Direct 70 mg/dL (0-129) 05/22/17 13:30 HDL Cholesterol 51 mg/dL (29-60) 05/22/17 13:30 Lipase 69 U/L (23-300) 05/23/17 09:35 Vitamin B12 600 pg/mL (239-931) 05/22/17 13:30 Folate 9.0 ng/mL 05/22/17 13:30 Free T4 1.15 ng/dL (0.78-2.19) 05/23/17 07:49 TSH 3rd Generation 3.09 mIU/mL (0.46-4.68) 05/23/17 07:49 Blood Type O POSITIVE 05/22/17 13:40 Antibody Screen Positive 05/22/17 13:40 Antibody Identification Anti K 05/22/17 13:40 Crossmatch See Detail 05/22/17 13:40 BBK History Checked Patient has bt 05/22/17 13:40 - Hospital Course Hospital Course: Upon Admission 42F PMHx anemia presented with dizziness, dyspnea, and palpitations that began on day of admission. Patient reported heav menses for 3 weeks requiring ~10maxi pads/day. She also complained of intermittent episodes of heart racing and right sided chest pain lasting 10 minutes and resolving spontaneously. Patient' s symptoms worsened and she had large clots which is why she came to ED. In ED patient had a Hgb of 8.6 and was having acute vaginal bleedings. She was transfused 2U PRBC. Patient was admitted to remote [facility] and cardiology Dr. Rosado and OBGyn Dr. Zuluaga were consulted. Patient had negative cardiac enzymes and EKG x 3 and Echo was unremarkable. As per cardiology reccs, patient was recommended to have an outpatient stress test. Patient had a pelvic ultrasound which was also unremarkable- "small R ovarian cyst as described. Left ovary is not visualized. Heterogenous uterine parenchyma nonspecific." Patient's H&H stablized and she was no longer symptomatic. As per Risk Assessor, patient was to follow up outpatient regarding menorrhagia. On day of discharge, patient was deemed medically stable for discharge. 1) Chest Pain: resolved. Patient to have outpatient work up 2) Symptomatic anemia: Patient to follow up with Dr. Zuluaga on Saturday May 27, 2017 and dischared on Feosol 325mg po bid 3) Uncontrolled DM2: chronic Upon Discharge Patient stable for discharge as per hospitalist and OBGyn. Patient to resume home medications. Patient to additionally start taking new medication as prescribed: -Feosol 325mg po bid Disp#60 Patient advised to take feosol with orange juice. Patient to follow up with OBGyn Dr. Zuluaga with 3days [preferably on Saturday May 27, 2017]: Address: [address] [place] [address], [address], [place], [place] ; Patient to also follow up with PMD within 7 days. Patient to also follow up with Cardiology within 10 days. If symptoms persist or worsen patient to visit ED immediately Instructions discussed in detail with patient who understands and agrees. Please note this is a discharge summary. For full hospital course please refer to medical records. Discharge Exam - Head Exam Head Exam: NORMAL INSPECTION, NORMOCEPHALIC - Eye Exam Eye Exam: EOMI, Normal appearance, PERRL. absent: Conjunctival injection, Scleral icterus Pupil Exam: NORMAL ACCOMODATION - ENT Exam ENT Exam: Mucous Membranes Moist - Neck Exam Neck exam: Full Rom, Normal Inspection - Respiratory Exam Respiratory Exam: Clear to PA & Lateral, NORMAL BREATHING PATTERN, UNREMARKABLE. absent: Accessory Muscle Use, Rales, Rhonchi, Wheezes, Respiratory Distress - Cardiovascular Exam Cardiovascular Exam: REGULAR RHYTHM, RRR, +S1, +S2. absent: Systolic Murmur - GI/Abdominal Exam GI & Abdominal Exam: Normal Bowel Sounds, Soft. absent: Firm, Guarding, Rigid, Tenderness - Back Exam Back exam: NORMAL INSPECTION. absent: rash noted, tenderness - Neurological Exam Neurological exam: Alert, Oriented x3 - Psychiatric Exam Psychiatric exam: Normal Affect, Normal Mood - Skin Skin Exam: Dry, Intact, Normal Color, Warm Discharge Plan - Discharge Medications Prescriptions: Ferrous Sulfate [Feosol] 1 tab PO BID #60 Glimepiride [amaRYL] 4 mg PO BRK #30 tab Rosuvastatin Calcium [Crestor] 10 mg PO DAILY #30 - Follow Up Plan Condition: STABLE Disposition: HOME/ ROUTINE Instructions: Chest Pain (DC), Chest Pain (GEN), Anemia (DC), Anemia (GEN) Additional Instructions: Patient stable for discharge as per hospitalist and OBGyn. Patient to resume home medications. Patient to additionally start taking new medication as prescribed: -Feosol 325mg po bid Disp#60 Patient advised to take feosol with orange juice. Patient to follow up with OBGyn Dr. Zuluaga with 3days [preferably on Saturday May 27, 2017]: Address: [address] [place] [address], [address], [place], [place] ; Patient to also follow up with PMD within 7 days. Patient to also follow up with Cardiology within 10 days. If symptoms persist or worsen patient to visit ED immediately Instructions discussed in detail with patient who understands and agrees. Referrals: Alphonso Allen MD [Staff Provider] - Luis Daniel Zuluaga [Medical Doctor] - Ernst Burger MD [Primary Care Provider] - <Martha Wild - Last Filed: 06/03/17 11:07> Provider - Provider Date of Admission: 05/23/17 15:56 Attending physician: Martha Wild MD Primary care physician: Ernst Burger MD Hospital Course - Lab Results Lab Results: Most Recent Lab Values WBC 6.8 10^3/ul (4.5-11.0) 05/25/17 09:30 RBC 3.72 10^6/uL (3.5-6.1) 05/25/17 09:30 Hgb 10.4 g/dL (12.0-16.0) L 05/25/17 09:30 Hct 32.6 % (36.0-48.0) L 05/25/17 09:30 MCV 87.6 fl (80.0-105.0) 05/25/17 09:30 MCH 28.0 pg (25.0-35.0) 05/25/17 09:30 MCHC 31.9 g/dl (31.0-37.0) 05/25/17 09:30 RDW 15.7 % (11.5-14.5) H 05/25/17 09:30 Plt Count 345 10^3/uL (120.0-450.0) 05/25/17 09:30 MPV 9.9 fl (7.0-11.0) 05/25/17 09:30 Gran % 63.3 % (50.0-68.0) 05/25/17 09:30 Lymph % (Auto) 30.2 % (22.0-35.0) 05/25/17 09:30 Greenlee % (Auto) 4.5 % (1.0-6.0) 05/25/17 09:30 Eos % (Auto) 1.6 % (1.5-5.0) 05/25/17 09:30 Baso % (Auto) 0.4 % (0.0-3.0) 05/25/17 09:30 Gran # 4.32 (1.4-6.5) 05/25/17 09:30 Lymph # 2.1 (1.2-3.4) 05/25/17 09:30 Greenlee # 0.3 (0.1-0.6) 05/25/17 09:30 Eos # 0.1 (0.0-0.7) 05/25/17 09:30 Baso # 0.03 K/mm3 (0.0-2.0) 05/25/17 09:30 PT 10.9 Seconds (9.9-11.8) 05/22/17 13:30 INR 1.01 (0.93-1.08) 05/22/17 13:30 APTT 24.9 Seconds (23.7-30.8) 05/22/17 13:30 D-Dimer, Quantitative 0.25 mg/L FEU (0-0.50) 05/22/17 13:30 Sodium 137 mmol/L (132-148) 05/25/17 09:30 Potassium 4.4 mmol/L (3.6-5.0) 05/25/17 09:30 Chloride 104 mmol/L (98-107) 05/25/17 09:30 Carbon Dioxide 25 mmol/L (21-33) 05/25/17 09:30 Anion Gap 12 (10-20) 05/25/17 09:30 BUN 10 mg/dL (7-21) 05/25/17 09:30 Creatinine 0.7 mg/dL (0.5-1.4) 05/25/17 09:30 Est GFR ( Amer) > 60 05/25/17 09:30 Est GFR (Non-Af Amer) > 60 05/25/17 09:30 POC Glucose (mg/dL) 224 mg/dL (65-110) H 05/25/17 11:29 Random Glucose 218 mg/dL (70-110) H 05/25/17 09:30 Hemoglobin A1c 9.3 % (4.2-6.5) H 05/22/17 13:30 Calcium 9.2 mg/dL (8.4-10.5) 05/25/17 09:30 Phosphorus 3.5 mg/dL (2.5-4.5) 05/25/17 09:30 Magnesium 1.8 mg/dL (1.7-2.2) 05/25/17 09:30 Iron 15 ug/dL (45-180) L 05/22/17 13:30 TIBC 355 ug/dL (265-497) 05/22/17 13:30 % Saturation 4 % (20-55) L 05/22/17 13:30 Ferritin 8.5 ng/mL 05/22/17 13:30 Total Bilirubin 0.3 mg/dL (0.2-1.3) 05/25/17 09:30 AST 24 U/L (15-39) 05/25/17 09:30 ALT 35 U/L (7-56) 05/25/17 09:30 Alkaline Phosphatase 63 U/L (38-133) 05/25/17 09:30 Lactate Dehydrogenase 536 U/L (333-699) 05/23/17 05:33 Total Creatine Kinase 200 U/L (35-230) 05/23/17 05:33 Troponin I < 0.01 ng/mL 05/23/17 05:33 Total Protein 7.5 g/dL (5.8-8.3) 05/25/17 09:30 Albumin 3.8 g/dL (3.0-4.8) 05/25/17 09:30 Globulin 3.7 gm/dL 05/25/17 09:30 Albumin/Globulin Ratio 1.0 (1.1-1.8) L 05/25/17 09:30 Triglycerides 153 mg/dL (35-160) 05/22/17 13:30 Cholesterol 132 mg/dL (130-200) 05/22/17 13:30 LDL Cholesterol Direct 70 mg/dL (0-129) 05/22/17 13:30 HDL Cholesterol 51 mg/dL (29-60) 05/22/17 13:30 Lipase 69 U/L (23-300) 05/23/17 09:35 Vitamin B12 600 pg/mL (239-931) 05/22/17 13:30 Folate 9.0 ng/mL 05/22/17 13:30 Free T4 1.15 ng/dL (0.78-2.19) 05/23/17 07:49 TSH 3rd Generation 3.09 mIU/mL (0.46-4.68) 05/23/17 07:49 Blood Type O POSITIVE 05/22/17 13:40 Antibody Screen Positive 05/22/17 13:40 Antibody Identification Anti K 05/22/17 13:40 Crossmatch See Detail 05/22/17 13:40 BBK History Checked Patient has bt 05/22/17 13:40 Attending/Attestation - Attestation I have personally seen and examined this patient.: Yes I have fully participated in the care of the patient.: Yes I have reviewed all pertinent clinical information, including history, physical exam and plan: Yes Notes (Text): 06/03/17 11:05 42 year old female old female with past medical history of menorrhagia and diabetes who presented with chest pain and palpitations. Also complained of heavy vaginal bleeding. She was found to have anemia with hemoglobin of 8.6. She received prbc transfusion and iv iron which improvement of her symptoms and of her anemia. Pelvic sono was reviewed as above. She was seen by cardiology who recommended outpatient stress test once symptoms resolved. Patient is discharged home to follow up with her pmd. Follow up with filler in this coming week. Follow up with cardiology for outpatient stress test once anemia/dysmenhoragia improves. Martha Wild MD Hospitalist.
[2017-05-25 14:22] VITALS: PULSE 94
== END 2017-05-25 14:27 | disposition home or self-care (01) | DRG 812 ==
LOC: ED 12:58 → ERH 14:15 → 3RNO 16:31 → OBSVTOIN 05-23 15:56
PROVIDERS: ADMIT Internal Medicine; ATTEND Internal Medicine
PROC: 30233N1 Transfusion of Nonautologous Red Blood Cells into Peripheral Vein, Percutaneous Approach (ICD-10-PCS; principal; 2017-05-22)
DX: D64.9 Anemia, unspecified (principal); N93.9 Abnormal uterine and vaginal bleeding, unspecified; Z68.42 Body mass index [BMI] 45.0-49.9, adult; E11.9 Type 2 diabetes mellitus without complications; E78.5 Hyperlipidemia, unspecified; R00.2 Palpitations; R07.89 Other chest pain; Z79.4 Long term (current) use of insulin; E66.9 Obesity, unspecified

== ENCOUNTER 2017-10-21 13:40 | Emergency (ER) | payer MEDICARE, OTHER ==
[2017-10-21 13:40] VITALS: BMI 46.7
[2017-10-21 15:05] VITALS: RESP 17; TEMP 98.3; O2SAT 99
--- NOTE | 2017-10-21 15:24 | ED PDOC ---
Arrival/HPI - General Chief Complaint: Abdominal Pain Time Seen by Provider: 10/21/17 14:46 Historian: Patient, Other (boyfriend) - History of Present Illness Time/Duration: Other (12 midnight) Symptom Onset: Sudden Symptom Course: Unchanged Activities at Onset: Sleeping Associated Symptoms (Text): 10/21/17 15:21 At approximately 12 midnight the patient developed severe lower crampy abdominal pain along with severe vaginal bleeding with clots. Last normal menstrual period is one month ago. 3 para 1, abortions 2. No nausea vomiting or diarrhea. No genitourinary symptoms. No fever or chills. No injury or trauma. No low back pain. Past Medical History - Infectious Disease Hx of Infectious Diseases: None - Tetanus Immunization Tetanus Immunization: Unknown - Cardiac Hx Cardiac Disorders: No - Pulmonary Hx Respiratory Disorders: No - Neurological Hx Neurological Disorder: No - HEENT Hx HEENT Disorder: No - Renal Hx Renal Disorder: No - Endocrine/Metabolic Hx Endocrine Disorders: Yes Hx Diabetes Mellitus Type 2: Yes - Hematological/Oncological Hx Blood Disorders: Yes Hx Anemia: Yes - Integumentary Hx Dermatological Disorder: No Hx Basal Cell Carcinoma: No - Musculoskeletal/Rheumatological Hx Musculoskeletal Disorders: Yes Hx Falls: Yes - Gastrointestinal Hx Gastrointestinal Disorders: No - Genitourinary/Gynecological Hx Genitourinary Disorders: No - Psychiatric Hx Psychophysiologic Disorder: No Hx Substance Use: No - Anesthesia Hx Anesthesia: No - Suicidal Assessment Feels Threatened In Home Enviroment: No Family/Social History - Physician Review Nursing Documentation Reviewed: Yes Family/Social History: Unknown Family HX Smoking Status: Never Smoked Hx Alcohol Use: No Hx Substance Use: No Hx Substance Use Treatment: No Allergies/Home Meds Allergies/Adverse Reactions: Allergies shrimp Adverse Reaction (Severe, Uncoded 10/21/17 14:24) ANAPHYLAXIS Review of Systems - Physician Review All systems were reviewed & negative as marked: Yes - Review of Systems Constitutional: Fatigue. absent: Fevers Respiratory: Normal Cardiovascular: Normal Gastrointestinal: Abdominal Pain. absent: Diarrhea, Nausea, Vomiting Genitourinary Female: Vaginal Bleeding. absent: Dysuria, Frequency, Hematuria Neurological: Dizziness. absent: Headache Physical Exam Vital Signs Temp Pulse Resp BP Pulse Ox 10/21/17 15:04 98.3 F 82 17 137/70 99 Temperature: Afebrile Blood Pressure: Normal Pulse: Regular Respiratory Rate: Normal Appearance: Positive for: Well-Appearing, Non-Toxic, Comfortable, Uncomfortable , Other (morbidly obese) Pain Distress: Mild Mental Status: Positive for: Alert and Oriented X 3 Finger Stick Blood Glucose: 165 - Systems Exam Head: Present: Atraumatic, Normocephalic Pupils: Present: PERRL Extroacular Muscles: Present: EOMI Conjunctiva: Present: Normal Mouth: Present: Moist Mucous Membranes Pharnyx: No: ERYTHEMA, EXUDATE, TONSILS ENLARGED Respiratory/Chest: Present: Clear to Auscultation, Good Air Exchange. No: Respiratory Distress, Accessory Muscle Use Cardiovascular: Present: Regular Rate and Rhythm, Normal S1, S2. No: Murmurs Abdomen: Present: Tenderness (mild suprapubic tenderness), Normal Bowel Sounds. No: Distention, Peritoneal Signs, Rebound, Guarding Back: Present: Normal Inspection. No: CVA Tenderness Upper Extremity: Present: Normal Inspection. No: Cyanosis, Edema Lower Extremity: Present: Normal Inspection. No: Edema Neurological: Present: GCS=15, CN II-XII Intact, Speech Normal, Motor Func Grossly Intact Skin: Present: Warm, Dry, Normal Color. No: Rashes Psychiatric: Present: Alert, Oriented x 3, Normal Insight, Normal Concentration Medical Decision Making ED Course and Treatment: 10/21/17 18:21 Patient is extremely uncooperative. She is extremely anxious about the bleeding. She is unable to cooperate for a true pelvic exam. She does have some large external clots. 10/21/17 18:37 Patient is anemic, but around her usual levels. HCG is negative. She will be discharged home, and by her boyfriend to follow up with PMD and COM WRITER. Prescription for Naprosyn. - Lab Interpretations Lab Results: 10/21/17 17:35 10/21/17 17:35 Lab Results 10/21/17 17:35: PT 13.1 H, INR 1.15 H, APTT 26.1 10/21/17 17:35: Beta HCG, Quant < 2.39 10/21/17 17:35: Sodium 142, Potassium 4.0, Chloride 108 H, Carbon Dioxide 26, Anion Gap 12, BUN 8, Creatinine 0.5 L, Est GFR ( Amer) > 60, Est GFR (Non -Af Amer) > 60, Random Glucose 170 H, Calcium 9.4, Total Bilirubin 0.3, AST 23, ALT 27, Alkaline Phosphatase 71, Total Protein 7.2, Albumin 3.6, Globulin 3.5, Albumin/Globulin Ratio 1.0 L 10/21/17 17:35: WBC 8.3 D, RBC 3.65, Hgb 9.6 L, Hct 30.7 L, MCV 84.1 D, MCH 26.3, MCHC 31.3, RDW 17.5 H, Plt Count 397, MPV 10.8, Gran % 61.2, Lymph % (Auto ) 31.4, [place] % (Auto) 5.6, Eos % (Auto) 1.4 L, Baso % (Auto) 0.4, Gran # 5.09, Lymph # 2.6, [place] # 0.5, Eos # 0.1, Baso # 0.03 Disposition/Present on Arrival - Present on Arrival Any Indicators Present on Arrival: No History of DVT/PE: No History of Uncontrolled Diabetes: Yes Urinary Catheter: No History of Decub. Ulcer: No History Surgical Site Infection Following: None - Disposition Have Diagnosis and Disposition been Completed?: Yes Diagnosis: Dysmenorrhea, Vaginal bleeding Disposition: HOME/ ROUTINE Disposition Time: 18:38 Patient Plan: Discharge Condition: GOOD Discharge Instructions (ExitCare): Dysmenorrhea (ED), Menstruation (ED), Dysfunctional Uterine Bleeding (ED) Prescriptions: Naproxen [Naprosyn] 500 mg PO BID #14 tab Referrals: Ernst Burger MD [Primary Care Provider] - Follow up with primary Forms: [employer] [facility] ([place])
[2017-10-21 17:58] LABS: ALBUMIN 3.6 g/dL (3.0-4.8); ALT/SGPT 27 U/L (7-56); AST/SGOT 23 U/L (14-36); BLOOD UREA NITROGEN 8 mg/dL (7-21); CALCIUM 9.4 mg/dL (8.4-10.5); GFR AFRICAN-AMERICAN > 60; GFR NON-AFRICAN AMERICAN > 60
[2017-10-21 17:59] LABS: BASO # 0.03 K/mm3 (0.0-2.0); BASO % 0.4 % (0.0-3.0); EOS # 0.1 (0.0-0.7); EOS % 1.4 % (1.5-5.0); GRAN # 5.09 (1.4-6.5); GRAN % 61.2 % (50.0-68.0); HEMOGLOBIN 9.6 g/dL (12.0-16.0); LYMPH # 2.6 (1.2-3.4); LYMPH % 31.4 % (22.0-35.0); MEAN CELL VOLUME 84.1 fl (80.0-105.0); MEAN CORPUSCULAR HEMOGLOBIN 26.3 pg (25.0-35.0); MEAN CORPUSCULAR HGB CONC 31.3 g/dl (31.0-37.0); MEAN PLATELET VOLUME 10.8 fl (7.0-11.0); MONO # 0.5 (0.1-0.6); MONO % 5.6 % (1.0-6.0); RBC 3.65 10^6/uL (3.5-6.1); RED CELL DISTRIBUTION WIDTH 17.5 % (11.5-14.5); WHITE BLOOD COUNT 8.3 10^3/ul (4.5-11.0)
[2017-10-21 18:04] LABS: INR 1.15 (0.93-1.08); PARTIAL THROMBOPLASTIN TIME 26.1 Seconds (25.1-36.5); PROTHROMBIN TIME 13.1 SECONDS (9.4-12.5)
[2017-10-21 18:46] VITALS: BP 140/63; PULSE 75
== END 2017-10-21 18:51 | disposition home or self-care (01) ==
LOC: ED 13:40
DX: N94.6 Dysmenorrhea, unspecified (principal); N93.9 Abnormal uterine and vaginal bleeding, unspecified; E11.9 Type 2 diabetes mellitus without complications

== ENCOUNTER 2018-04-25 20:59 | Emergency (ER) | payer MEDICARE, OTHER ==
--- NOTE | 2018-04-25 21:08 | ED PDOC ---
Arrival/HPI <Adan Ozuna - Last Filed: 04/25/18 21:34> - General Historian: Patient - History of Present Illness Time/Duration: 1 week Symptom Onset: Gradual Symptom Course: Unchanged Quality: Aching Activities at Onset: Light Context: Home <Axel Bailey - Last Filed: 04/26/18 10:30> - General Time Seen by Provider: 04/25/18 21:01 - History of Present Illness Narrative History of Present Illness (Text): 04/25/18 21:02 43 y/o female, pmh including anemia/diabetes, nkda, presents to the Emergency Department complaining of left breast skin lesion pain and itching since 7 days. Patient states itchiness in the area initially, developing redness from scratching since onset. Patient states itchiness has subsided but the pain is still present with skin breaking prompting her to present to the Emergency Department for evaluation. Patient denies any fever, chills, drainage, nausea, vomiting, abdominal pain, chest pain, shortness of breath, trauma or any other complaints. Last tetanus under 7 years ago. (Axel Bailey) Past Medical History - Provider Review Nursing Documentation Reviewed: Yes - Infectious Disease Hx of Infectious Diseases: None - Tetanus Immunization Tetanus Immunization: Unknown - Cardiac Hx Cardiac Disorders: No - Pulmonary Hx Respiratory Disorders: No - Neurological Hx Neurological Disorder: No - HEENT Hx HEENT Disorder: No - Renal Hx Renal Disorder: No - Endocrine/Metabolic Hx Endocrine Disorders: Yes Hx Diabetes Mellitus Type 2: Yes - Hematological/Oncological Hx Blood Disorders: Yes Hx Anemia: Yes - Integumentary Hx Dermatological Disorder: No Hx Basal Cell Carcinoma: No - Musculoskeletal/Rheumatological Hx Musculoskeletal Disorders: Yes Hx Falls: Yes - Gastrointestinal Hx Gastrointestinal Disorders: No - Genitourinary/Gynecological Hx Genitourinary Disorders: No - Psychiatric Hx Psychophysiologic Disorder: No Hx Substance Use: No - Anesthesia Hx Anesthesia: No - Suicidal Assessment Feels Threatened In Home Enviroment: No <Axel Bailey - Last Filed: 04/26/18 10:30> Family/Social History - Physician Review Nursing Documentation Reviewed: Yes Family/Social History: No Known Family HX Smoking Status: Never Smoked Hx Alcohol Use: No Hx Substance Use: No Hx Substance Use Treatment: No <Axel Bailey - Last Filed: 04/26/18 10:30> Allergies/Home Meds <Adan Ozuna - Last Filed: 04/25/18 21:34> <Axel Bailey - Last Filed: 04/26/18 10:30> Allergies/Adverse Reactions: Allergies shrimp Adverse Reaction (Severe, Uncoded 10/21/17 14:24) ANAPHYLAXIS Review of Systems - Physician Review All systems were reviewed & negative as marked: Yes - Review of Systems Constitutional: absent: Fevers Respiratory: absent: SOB Cardiovascular: absent: Chest Pain Gastrointestinal: absent: Abdominal Pain, Nausea, Vomiting Skin: Skin Lesions (left breast skin). absent: Abscess Neurological: absent: Headache, Dizziness Psychiatric: absent: Anxiety, Depression <Axel Bailey - Last Filed: 04/26/18 10:30> Physical Exam Vital Signs Reviewed: Yes Temperature: Afebrile Blood Pressure: Normal Pulse: Regular Respiratory Rate: Normal Appearance: Positive for: Well-Appearing, Non-Toxic, Comfortable Pain Distress: Mild Mental Status: Positive for: Alert and Oriented X 3 - Systems Exam Head: Present: Atraumatic, Normocephalic Pupils: Present: PERRL Extroacular Muscles: Present: EOMI Conjunctiva: Present: Normal Mouth: Present: Moist Mucous Membranes Neck: Present: Normal Range of Motion Respiratory/Chest: Present: Clear to Auscultation, Good Air Exchange. No: Respiratory Distress, Accessory Muscle Use Cardiovascular: Present: Regular Rate and Rhythm, Normal S1, S2. No: Murmurs Abdomen: No: Tenderness, Distention, Peritoneal Signs Back: Present: Normal Inspection Upper Extremity: Present: Normal Inspection. No: Cyanosis, Edema Lower Extremity: Present: Normal Inspection. No: Edema Neurological: Present: GCS=15, CN II-XII Intact, Speech Normal Skin: Present: Warm, Dry, Normal Color, Other (visible 2cm in diameter cellulitis noted at 10 o clock position on left breast skin with no streaking, no fluctuant absess, no regional lymphenapathy). No: Abscess Psychiatric: Present: Alert, Oriented x 3, Normal Insight, Normal Concentration <Axel Bailey - Last Filed: 04/26/18 10:30> Vital Signs Temp Pulse Resp BP Pulse Ox 04/25/18 22:17 97.8 F 88 18 138/83 100 04/25/18 21:20 97.8 F 88 18 138/83 100 Medical Decision Making <Adan Ozuna - Last Filed: 04/25/18 21:34> <Axel Bailey - Last Filed: 04/26/18 10:30> ED Course and Treatment: 04/25/18 21:41 -Urine hcg is negative -This is likely tinea induced with skin breaking cellulitis. -Discharge home with clindamycin, clotrimazole, take tylenol for pain as needed , follow up with your own pmd and warp tying machine knotter within 2 days, return to the ER for any new or worsening signs or symptoms. (Axel Bailey) - PA / BOX MACHINE OPERATOR / Resident Statement / has reviewed & agrees with the documentation as recorded. / has examined the patient and agrees with the treatment plan. <Adan Ozuna - Last Filed: 04/25/18 21:34> - PA / BOX MACHINE OPERATOR / Resident Statement / has reviewed & agrees with the documentation as recorded. / has examined the patient and agrees with the treatment plan. - Scribe Statement The provider has reviewed the documentation as recorded by the Scribe <Axel Bailey - Last Filed: 04/26/18 10:30> - Scribe Statement Denilson Galvan. All medical record entries made by the Scribe were at my direction and personally dictated by me. I have reviewed the chart and agree that the record accurately reflects my personal performance of the history, physical exam, medical decision making, and the department course for this patient. I have also personally directed, reviewed, and agree with the discharge instructions and disposition. (Axel Bailey) Disposition/Present on Arrival <Adan Ozuna - Last Filed: 04/25/18 21:34> - Present on Arrival Any Indicators Present on Arrival: No History of DVT/PE: No History of Uncontrolled Diabetes: Yes Urinary Catheter: No History Surgical Site Infection Following: None - Disposition Have Diagnosis and Disposition been Completed?: Yes Disposition Time: 21:47 Patient Plan: Discharge <Axel Bailey - Last Filed: 04/26/18 10:30> - Disposition Diagnosis: Cellulitis, Dermatitis Disposition: HOME/ ROUTINE Condition: GOOD Discharge Instructions (ExitCare): Cellulitis (ED) Additional Instructions: -Discharge home with clindamycin, clotrimazole, take tylenol for pain as needed , follow up with your own pmd and warp tying machine knotter within 2 days, return to the ER for any new or worsening signs or symptoms. Prescriptions: Clindamycin [Cleocin] 300 mg PO TID #30 cap Clotrimazole 1% Cream [Lotrimin 1% CREAM] 1 applic TOP BID #30 g Referrals: [facility] at [facility] [place] [Outside] - Follow up with primary Forms: WORK NOTE
[2018-04-25 21:20] VITALS: BP 138/83; PULSE 88; RESP 18; TEMP 97.8; O2SAT 100; BMI 48.9
== END 2018-04-25 22:16 | disposition home or self-care (01) ==
LOC: ED 20:59
DX: N61.0 Mastitis without abscess (principal); L30.9 Dermatitis, unspecified

== ENCOUNTER 2018-05-28 13:29 | Inpatient (IN) | payer MEDICARE ==
[2018-05-28 13:54] VITALS: BMI 46.1
[2018-05-28] MEDS ORDERED: Sodium Chloride 0.9% 1,000 ML IV STA ×3 (14:57→21:05)
--- NOTE | 2018-05-28 15:08 | ED PDOC ---
Arrival/HPI <Logan Dukes - Last Filed: 05/28/18 20:01> - General Historian: Patient, Family (friend) - History of Present Illness Time/Duration: > week (11 days) Symptom Onset: Gradual Symptom Course: Unchanged Quality: Tightness, Cramping Severity Level: 8 Activities at Onset: Rest <Goyo Savage - Last Filed: 05/28/18 20:27> - General Chief Complaint: Weakness/Neurological Deficit Time Seen by Provider: 05/28/18 13:52 - History of Present Illness Narrative History of Present Illness (Text): 05/28/18 15:08 CC: Abdominal Pain HPI: Mr. Jensen is a 43 year old female with a past medical history of DM2, HLD , anemia, morbid obesity and vaginal bleeding who presents with RUQ abdominal pain that radiates to flank and then around to back. Patient states this began on 05/17/18, and no inciting events were reported. Patient has had very poor oral intake due to her nausea and vomiting because it will make her sick. Patient reports a loss of weight of 20 lbs over the course of the 11 days. Patient reports dry wretching because patient unable to bring anything up. Patient also reports 2 nonbloody episodes of watery diarrhea daily over that same time period. Patient tried to take Midol last week for pain but patient has been unable to find position of comfort and it has affected her sleep as well. Patient reports subjective fevers, chills, weakness, dizziness, shortness of breath and is sometimes unable to make it to the bathroom in time to urinate. Patient denies chest pain, palpitations, headaches, vision changes, sore throat , cough, constipation, hematuria, melena, hematochezia, leg pain, edema, recent travel, sick contacts. PMHx: DM2, HLD, anemia, morbid obesity and vaginal bleeding PSHx:denies All: Shellfish (anaphylaxis) Social: Denies tobacco, ETOH and IVDU Fam hx: denies Meds: Rosuvastatin 10 mg PO, Novolog PMD: Dr. Burger Vp Product Management : Dr. Gaines (Goyo Savage) Past Medical History - Provider Review Nursing Documentation Reviewed: Yes - Infectious Disease Hx of Infectious Diseases: None - Tetanus Immunization Tetanus Immunization: Unknown - Cardiac Hx Cardiac Disorders: Yes - Pulmonary Hx Respiratory Disorders: No - Neurological Hx Neurological Disorder: No - HEENT Hx HEENT Disorder: No - Renal Hx Renal Disorder: No - Endocrine/Metabolic Hx Endocrine Disorders: Yes Hx Diabetes Mellitus Type 2: Yes - Hematological/Oncological Hx Blood Disorders: Yes Hx Anemia: Yes - Integumentary Hx Dermatological Disorder: No Hx Basal Cell Carcinoma: No - Musculoskeletal/Rheumatological Hx Musculoskeletal Disorders: Yes Hx Falls: Yes - Gastrointestinal Hx Gastrointestinal Disorders: No - Genitourinary/Gynecological Hx Genitourinary Disorders: No - Psychiatric Hx Psychophysiologic Disorder: No Hx Substance Use: No - Anesthesia Hx Anesthesia: No - Suicidal Assessment Feels Threatened In Home Enviroment: No <Goyo Savage - Last Filed: 05/28/18 20:27> Family/Social History - Physician Review Nursing Documentation Reviewed: Yes Family/Social History: No Known Family HX Smoking Status: Never Smoked Hx Alcohol Use: No Hx Substance Use: No Hx Substance Use Treatment: No <Goyo Savage - Last Filed: 05/28/18 20:27> Allergies/Home Meds <Logan Dukes - Last Filed: 05/28/18 20:01> <Goyo Savaeg - Last Filed: 05/28/18 20:27> Allergies/Adverse Reactions: Allergies No Known Drug Allergies Allergy (Verified 05/28/18 17:41) shrimp Adverse Reaction (Severe, Uncoded 05/28/18 13:49) ANAPHYLAXIS Home Medications: Home Meds Medication Instructions Recorded Confirmed Insulin Aspart [Novolog FLEXPEN] 36 unit SQ TID 05/28/18 05/28/18 Rosuvastatin Calcium [Crestor] 10 mg PO DAILY 05/28/18 05/28/18 Review of Systems - Review of Systems Constitutional: Fatigue, Weight Change, Fevers Eyes: Normal ENT: Normal Respiratory: SOB. absent: Cough, Sputum Cardiovascular: absent: Chest Pain, Palpitations, Calf Pain Gastrointestinal: Abdominal Pain, Diarrhea, Nausea, Vomiting. absent: Stool Changes Genitourinary Female: Urine Output Changes (can not make it to bathroom to urinate). absent: Hematuria, Vaginal Bleeding Musculoskeletal: Back Pain, Myalgias Skin: Normal Neurological: Dizziness. absent: Headache Endocrine: Polyuria Hemo/Lymphatic: Normal Psychiatric: Anxiety <Goyo Savage - Last Filed: 05/28/18 20:27> Physical Exam <Logan Dukes - Last Filed: 05/28/18 20:01> Vital Signs Reviewed: Yes Temperature: Afebrile Blood Pressure: Normal Pulse: Tachycardic Respiratory Rate: Normal Appearance: Positive for: Uncomfortable Pain Distress: Moderate Mental Status: Positive for: Alert and Oriented X 3 - Systems Exam Head: Present: Atraumatic, Normocephalic Pupils: Present: PERRL Extroacular Muscles: Present: EOMI Conjunctiva: Present: Normal Ears: Present: Normal Mouth: Present: Moist Mucous Membranes Respiratory/Chest: Present: Wheezes, Decreased Breath Sounds. No: Good Air Exchange, Accessory Muscle Use, Rales, Rhonchi Cardiovascular: Present: Regular Rate and Rhythm, Normal S1, S2. No: Murmurs Abdomen: Present: Tenderness (RUQ wrapping around to R flank and back), Distention, McBurney's Point Tender. No: Normal Bowel Sounds (hypoactive), Peritoneal Signs, Rebound, Guarding, Hernias Back: Present: CVA Tenderness, Midline Tenderness, Paraspinal Tenderness Upper Extremity: Present: Normal Inspection, Normal ROM. No: Cyanosis, Edema Lower Extremity: Present: Normal Inspection. No: Edema, Tenderness, Swelling Neurological: Present: GCS=15, CN II-XII Intact, Speech Normal Skin: Present: Warm, Dry, Rashes, Normal Color Psychiatric: Present: Alert, Oriented x 3, Normal Insight, Normal Concentration <Goyo Savage - Last Filed: 05/28/18 20:27> - Physical Exam Narrative Physical Exam (Text): 05/28/18 15:07 Morbidly obese (Goyo Savage) Vital Signs Temp Pulse Resp BP Pulse Ox 05/28/18 19:50 99.0 F 104 H 16 110/62 99 05/28/18 18:46 98.9 F 108 H 18 126/76 97 05/28/18 13:54 97.8 F 122 H 19 112/75 98 Medical Decision Making <Logan Dukes - Last Filed: 05/28/18 20:01> <Goyo Savage - Last Filed: 05/28/18 20:27> ED Course and Treatment: Patient Seen With Resident: In agreement with resident note. Patient was seen and evaluated with resident, came up with plan and treatment together. (Logan Dukes) 05/28/18 15:10 Impression: 43 year old female with a past medical history of DM,HLD, anemia and vaginal bleeding who presents with RUQ abdominal pain. Differential: Biliary colic vs DKA vs pyelonephritis vs pancreatitis Plan: - CBC - CMP - RUQ U/S - 2 L IVF NS - Lipase, Mg - Toradol 30 mg IVP - Zofran 4mg - POC test - Fingerstick sugar - UA 05/28/18 16:03 Gallbladder & Pancreas U/S: Negative study. Increased echogenicity of liver parenchyma. No bile duct dilatation. No gallstones. No pancreatic ductal dilation. R kidney shows no calculus, mass or hydronephrosis. 05/28/18 16:57 WBC 16.9 Lipase 43 Glucose 383 Awaiting UA results Ordered CT abdomen/pel with IV contrast only Ordered Urine cultures Ordered ABG 05/28/18 17:21 UA: Protein 100, Ketones 15, Large Nitrates and smalle leuk esterase, 25 RBC, 15 WBC UTI vs pyelonephritis could be 2/2 dehydration Awaiting ABG results Ordered blood cultures Started empiric Rocephin 1 g 05/28/18 18:56 ABG : pH 7.49, pCO2 33, pO2 [address] preliminary read: Bilateral hydronephrosis with possible abscess in L ureter Decision to admit to medicine team for further workup of sepsis and pyelonephritis. (Goyo Savage) - Lab Interpretations Lab Results: 05/28/18 16:07 05/28/18 16:07 Lab Results 05/28/18 18:00: pCO2 33 L, pO2 80.0, HCO3 25.1, ABG pH 7.49 H, ABG Total CO2 26.1, ABG O2 Saturation 98.3 H, ABG O2 Content 13.6 L, ABG Base Excess 2.0, ABG Hemoglobin 10.1 L, ABG Carboxyhemoglobin 2.3 H, POC ABG HHb (Measured) 1.6, ABG Methemoglobin 0.9, ABG O2 Capacity 13.8 L, Hgb O2 Saturation 95.3, FiO2 21.0 05/28/18 16:55: Urine Color yellow, Urine Appearance Slight-cloudy, Urine pH 6.0 , Ur Specific [place] 1.020, Urine Protein 100 H, Urine Glucose (UA) >=1000, Urine Ketones 15 H, Urine Blood Large H, Urine Nitrate Positive H, Urine Bilirubin Negative, Urine Urobilinogen 0.2, Ur Leukocyte Esterase Small H, Urine RBC 25 - 30, Urine WBC 10 - 15, Ur Epithelial Cells 10 - 12, Amorphous Sediment Moderate 05/28/18 16:07: Sodium 136, Potassium 3.9, Chloride 97 L, Carbon Dioxide 27, Anion Gap 16, BUN 6 L, Creatinine 0.8, Est GFR ( Amer) > 60, Est GFR (Non -Af Amer) > 60, Random Glucose 383 H* D, Calcium 9.1, Magnesium 1.7, Total Bilirubin 0.6, AST 15, ALT 19, Alkaline Phosphatase 89, Total Protein 8.2, Albumin 3.8, Globulin 4.4, Albumin/Globulin Ratio 0.9 L, Lipase 43 05/28/18 16:07: WBC 16.9 H D, RBC 3.74, Hgb 11.1 L, Hct 33.6 L, MCV 89.8 D, MCH 29.7, MCHC 33.0, RDW 13.3, Plt Count 424, MPV 9.6, Gran % 81.0 H, Lymph % ( Auto) 13.0 L, [place] % (Auto) 5.9, Eos % (Auto) 0.0 L, Baso % (Auto) 0.1, Gran # 13.71 H, Lymph # (Auto) 2.2, [place] # (Auto) 1.0 H, Eos # (Auto) 0.0, Baso # (Auto ) 0.02 - RAD Interpretation Radiology Orders: 05/28/18 14:56 GALLBLADDER & PANCREAS [US] Stat 05/28/18 16:46 ABDOMEN & PELVIS [ABD & PELVIS IV CONTRAST ONLY] [CT] Stat - Medication Orders Current Medication Orders: Sodium Chloride (Sodium Chloride 0.9%) 1,000 mls @ 125 mls/hr IV .Q8H MORGAN Discontinued Medications Sodium Chloride (Sodium Chloride 0.9%) 1,000 mls @ 999 mls/hr IV .Q1H1M STA Stop: 05/28/18 15:57 Last Admin: 05/28/18 17:29 Dose: 999 mls/hr eMAR Start Stop Document 05/28/18 17:29 SH (Rec: 05/28/18 17:29 [email or web address] Intravenous Solution Start Date 05/28/18 Start Time 17:29 Sodium Chloride (Sodium Chloride 0.9%) 1,000 mls @ 999 mls/hr IV .Q1H1M STA Stop: 05/28/18 15:57 Last Admin: 05/28/18 16:17 Dose: 999 mls/hr eMAR Start Stop Document 05/28/18 16:17 SS (Rec: 05/28/18 16:17 SS [id number]) Intravenous Solution Start Date 05/28/18 Start Time 16:17 End Date 05/28/18 End time 17:17 Total Infusion Time 60 Ceftriaxone Sodium (Rocephin 1 Gram Ivpb) 1 gm in 100 mls @ 100 mls/hr IVPB STAT STA PRN Reason: Protocol Stop: 05/28/18 18:17 Last Admin: 05/28/18 18:09 Dose: 100 mls/hr eMAR Start Stop Document 05/28/18 18:09 (Rec: 05/28/18 18:09 [email or web address] Intravenous Solution Start Date 05/28/18 Start Time 18:09 Insulin Human Regular (Humulin R) 8 units IVP STAT STA Stop: 05/28/18 17:38 Last Admin: 05/28/18 18:09 Dose: [address] [facility] Blood Glucose Document 05/28/18 18:09 (Rec: 05/28/18 18:10 [email or web address] Blood Glucose Finger Stick Blood Glucose (70-120) 315 IVP Administration Document 05/28/18 18:09 (Rec: 05/28/18 18:10 [email or web address] Charges for Administration # of IVP Administrations 1 Ketorolac Tromethamine (Toradol) 30 mg IVP STAT STA Stop: 05/28/18 15:02 Last Admin: 05/28/18 17:27 Dose: 30 mg MAR Pain Assessment Document 05/28/18 17:27 (Rec: 05/28/18 17:28 [email or web address] Pain Reassessment Is this a pain reassessment? No Sleep Is patient sleeping during reassessment? No Presence of Pain Presence of Pain Yes IVP Administration Document 05/28/18 17:27 (Rec: 05/28/18 17:28 [email or web address] Charges for Administration # of IVP Administrations 1 Morphine Sulfate (Morphine) 2 mg IVP STAT STA Stop: 05/28/18 19:44 Ondansetron HCl (Zofran Inj) 4 mg IVP STAT STA Stop: 05/28/18 14:58 Last Admin: 05/28/18 17:27 Dose: 4 mg IVP Administration Document 05/28/18 17:27 (Rec: 05/28/18 17:27 [email or web address] Charges for Administration # of IVP Administrations 1 Disposition/Present on Arrival - Present on Arrival Any Indicators Present on Arrival: No - Disposition Have Diagnosis and Disposition been Completed?: Yes Disposition Time: 20:01 <Logan Dukes - Last Filed: 05/28/18 20:01> - Present on Arrival Any Indicators Present on Arrival: Yes History of DVT/PE: No History of Uncontrolled Diabetes: Yes Urinary Catheter: No History of Decub. Ulcer: No History Surgical Site Infection Following: None - Disposition Have Diagnosis and Disposition been Completed?: Yes Patient Plan: Admission <Goyo Savage - Last Filed: 05/28/18 20:27> - Disposition Diagnosis: Pyelonephritis Disposition: HOSPITALIZED Condition: GOOD
--- NOTE | 2018-05-28 15:47 | US ---
Date of service: 05/28/2018 HISTORY: pain, ?gallstones COMPARISON: None. TECHNIQUE: Sonographic evaluation of the right upper quadrant of the abdomen. FINDINGS: LIVER: Measures 20.0 cm in length. Increased echogenicity of the liver parenchyma. No mass. No intrahepatic bile duct dilatation. GALLBLADDER: Unremarkable. No gallstones. COMMON BILE DUCT: Measures 4.0 mm. No stones. No dilatation. PANCREAS: Unremarkable as visualized. No mass. No ductal dilatation. RIGHT KIDNEY: Measures 11.7 x 4.9 x 5.9 cm in length. Normal echogenicity. No calculus, mass, or hydronephrosis. AORTA: No aneurysmal dilatation. IVC: Unremarkable. OTHER FINDINGS: None . IMPRESSION: Negative study
[2018-05-28 16:27] LABS: BASO # 0.02 K/mm3 (0.0-2.0); BASO % 0.1 % (0.0-3.0); GRAN # 13.71 (1.4-6.5); HEMOGLOBIN 11.1 g/dL (12.0-16.0); LYMPH # 2.2 (1.2-3.4); MEAN CELL VOLUME 89.8 fl (80.0-105.0); MEAN CORPUSCULAR HEMOGLOBIN 29.7 pg (25.0-35.0); MEAN PLATELET VOLUME 9.6 fl (7.0-11.0); MONO % 5.9 % (1.0-6.0); RBC 3.74 10^6/uL (3.5-6.1); RED CELL DISTRIBUTION WIDTH 13.3 % (11.5-14.5); WHITE BLOOD COUNT 16.9 10^3/ul (4.5-11.0)
[2018-05-28 16:50] LABS: ALB/GLOB RATIO 0.9 (1.1-1.8); ALBUMIN 3.8 g/dL (3.0-4.8); ALT/SGPT 19 U/L (7-56); AST/SGOT 15 U/L (14-36); BLOOD UREA NITROGEN 6 mg/dL (7-21); CALCIUM 9.1 mg/dL (8.4-10.5); GFR NON-AFRICAN AMERICAN > 60; LIPASE 43 U/L (23-300)
[2018-05-28 17:05] LABS: URINE BILIRUBIN NEGATIVE (NEGATIVE); URINE BLOOD LARGE (NEGATIVE); URINE GLUCOSE (UA) >=1000 mg/dL (NEGATIVE); URINE LEUKOCYTE ESTERASE SMALL Leu/uL (NEGATIVE); URINE PROTEIN 100 mg/dL (<30 mg/dL); URINE UROBILINOGEN 0.2 E.U./dL (<1 E.U./dL)
[2018-05-28 17:07] LABS: URINE APPEARANCE SLIGHT-CLOUDY (CLEAR)
[2018-05-28 17:08] LABS: URINE AMORPHOUS SEDIMENT MODERATE; URINE RBC 25 - 30 /hpf (0-2)
[2018-05-28] MEDS ORDERED: cefTRIAXone 1 gm 1 GM/100 ML BAG IVPB STA (17:18)
[2018-05-28] MEDS ORDERED: Insulin Regular 1 UNITS/0.01 ML ML IVP STA (17:37)
[2018-05-28 18:13] LABS: ARTERIAL BLOOD GAS HCO3 25.1 mmol/L (21-28); ARTERIAL BLOOD GAS HEMOGLOBIN 10.1 g/dL (11.7-17.4); ARTERIAL BLOOD GAS O2 CAPACITY 13.8 mL/dl (16-24); ARTERIAL BLOOD GAS O2 CONTENT 13.6 ML/dl (15-23); ARTERIAL BLOOD GAS O2 SAT 98.3 % (95-98); ARTERIAL BLOOD GAS PCO2 33 mm/Hg (35-45); ARTERIAL BLOOD GAS PH 7.49 (7.35-7.45); ARTERIAL BLOOD GAS TCO2 26.1 mmol.L (22-28)
--- NOTE | 2018-05-28 18:55 | CT ---
Date of service: 05/28/2018 PROCEDURE: CT Abdomen and Pelvis with contrast HISTORY: Right-sided abdominal pain COMPARISON: CT abdomen and pelvis with IV contrast performed 07/29/16 TECHNIQUE: Contrast dose: 149 cc Omnipaque 350 Radiation dose: Total exam DLP = 1154.27 mGy-cm. This CT exam was performed using one or more of the following dose reduction techniques: Automated exposure control, adjustment of the mA and/or kV according to patient size, and/or use of iterative reconstruction technique. FINDINGS: Examination limited by habitus. LOWER THORAX: No visible consolidation, pleural effusion, or pneumothorax. Small to moderate hiatal hernia. LIVER: Hepatomegaly. GALLBLADDER AND BILE DUCTS: Unremarkable. PANCREAS: Unremarkable. SPLEEN: Unremarkable. ADRENALS: Unremarkable. KIDNEYS AND URETERS: Regions of diminished and heterogeneous enhancement involving the left upper pole and right mid/lower pole worrisome for pyelonephritis. Question possibility of developing abscess within the left upper pole. No hydronephrosis. No obstructing calculus. VASCULATURE: No aortic aneurysm. BOWEL: Stomach is nondistended. Lack of oral contrast limits evaluation for bowel pathology. Bowel loops appear within normal limits of caliber without evidence of obstruction. APPENDIX: No secondary signs of acute appendicitis. PERITONEUM: No significant free fluid. No definite free air. LYMPH NODES: No bulky adenopathy identified. BLADDER: Unremarkable. REPRODUCTIVE: Uterus is present. Suspected 15 mm left ovarian cyst. Probable fluid within the endometrium. BONES: No acute osseous abnormality is detected. OTHER FINDINGS: None. IMPRESSION: Regions of diminished and heterogeneous enhancement involving the left upper pole and right mid/lower pole worrisome for pyelonephritis. Question possibility of developing abscess within the left upper pole. Correlate clinically. Suspected 15 mm left ovarian cyst. Probable fluid within the endometrium. Pelvic ultrasound may be considered for further evaluation. Findings discussed with Dr. Dukes on 05/28/18 at 6:52 p.m.
[2018-05-28] MEDS ORDERED: Morphine 2 mg/ml ISec IVP STA (19:43)
--- NOTE | 2018-05-28 20:00 | CP.PCM.HP ---
<Adolfo Hensley - Last Filed: 05/28/18 21:47> History of Present Illness - History of Present Illness History of Present Illness: Adolfo Hensley PGY1, History and Physical for Dr Hayes Pt is a 43 yo female with a PMH of DM2, HLD, and obesity who presents to the ED complaining of right sided abdominal pain which radiates to the back associated with weakness and dizziness. She states this began on May 17. She reports anorexia during this time due to loss of appetite. Pt reports losing about 20 lbs in the past month. Pt reports that she normally takes 36 units of insulin TID. Pt admits to not taking her insulin recently and that her sugars have been elevated. Pt denies nausea, vomiting, fevers, or chills. Pt states that her urine has been malodorous during this time. She states that changing position makes the pain worse. She reports taking Midol which did not help alleviate the pain very much. Pt denies every having a UTI, bladder or kidney infection in the past. A 12 point ROS was obtained and added to HPI where appropriate. PMH: DM, obesity, HLD, vaginal bleeding PSH: denies Allergies: Shrimp Social: Denies tobacco, denies alcohol, denies drug use FH: Mother DM Meds: Novolog 36 units TID, Rosuvastatin 10mg PMD: Dr. Burger Present on Admission - Present on Admission Any Indicators Present on Admission: Yes History of Uncontrolled Diabetes: Yes Review of Systems - Review of Systems Review of Systems: 12 point ROS obtained and added to HPI where appropriate Past Patient History - Infectious Disease Hx of Infectious Diseases: None - Tetanus Immunizations Tetanus Immunization: Unknown - Past Social History Smoking Status: Never Smoked - CARDIAC Hx Cardiac Disorders: Yes - PULMONARY Hx Respiratory Disorders: No - NEUROLOGICAL Hx Neurological Disorder: No - HEENT Hx HEENT Problems: No - RENAL Hx Chronic Kidney Disease: No - ENDOCRINE/METABOLIC Hx Endocrine Disorders: Yes Hx Diabetes Mellitus Type 2: Yes - HEMATOLOGICAL/ONCOLOGICAL Hx Blood Disorders: Yes Hx Anemia: Yes - INTEGUMENTARY Hx Dermatological Problems: No Hx Basil Cell: No - MUSCULOSKELETAL/RHEUMATOLOGICAL Hx Musculoskeletal Disorders: Yes Hx Falls: Yes - GASTROINTESTINAL Hx Gastrointestinal Disorders: No - GENITOURINARY/GYNECOLOGICAL Hx Genitourinary Disorders: No - PSYCHIATRIC Hx Psychophysiologic Disorder: No Hx Substance Use: No - SURGICAL HISTORY Hx Surgeries: No - ANESTHESIA Hx Anesthesia: No Meds Allergies/Adverse Reactions: Allergies Allergy/AdvReac Type Severity Reaction Status Date / Time No Known Drug Allergies Allergy Verified 05/28/18 17:41 shrimp AdvReac Severe ANAPHYLAXIS Uncoded 05/28/18 13:49 Physical Exam - Constitutional Appears: No Acute Distress - Head Exam Head Exam: ATRAUMATIC, NORMOCEPHALIC - Eye Exam Eye Exam: EOMI - ENT Exam ENT Exam: Mucous Membranes Moist - Neck Exam Neck exam: Positive for: Full Rom - Respiratory Exam Respiratory Exam: Clear to Auscultation Bilateral, NORMAL BREATHING PATTERN. absent: Accessory Muscle Use, Rhonchi, Wheezes, Respiratory Distress - Cardiovascular Exam Cardiovascular Exam: REGULAR RHYTHM, RRR, +S1, +S2. absent: Diastolic murmur, Irregular Rhythm, JVD, Systolic Murmur - GI/Abdominal Exam GI & Abdominal Exam: Normal Bowel Sounds, Soft. absent: Diminished Bowel Sounds , Distended, Firm, Guarding, Hernia, Rebound, Rigid Additional comments: no abdominal pain to palpation - Extremities Exam Extremities exam: Positive for: full ROM. Negative for: calf tenderness, pedal edema - Back Exam Back exam: FULL ROM, NORMAL INSPECTION. absent: CVA tenderness (L), CVA tenderness (R), muscle spasm Additional comments: no back, flank, or CVA tenderness during exam - Neurological Exam Neurological exam: Alert, Oriented x3 - Psychiatric Exam Psychiatric exam: Normal Affect, Normal Mood - Skin Skin Exam: Dry, Normal Color, Warm Results - Vital Signs Recent Vital Signs: Last Vital Signs Temp 98.9 F 05/28/18 18:46 Pulse 108 H 05/28/18 18:46 Resp 18 05/28/18 18:46 BP 126/76 05/28/18 18:46 Pulse Ox 97 05/28/18 18:46 - Labs Result Diagrams: 05/28/18 16:07 05/28/18 16:07 Labs: Laboratory Results - last 24 hr 05/28/18 05/28/18 05/28/18 16:07 16:07 16:55 WBC 16.9 H D RBC 3.74 Hgb 11.1 L Hct 33.6 L MCV 89.8 D MCH 29.7 MCHC 33.0 RDW 13.3 Plt Count 424 MPV 9.6 Gran % 81.0 H Lymph % (Auto) 13.0 L Clark % (Auto) 5.9 Eos % (Auto) 0.0 L Baso % (Auto) 0.1 Gran # 13.71 H Lymph # (Auto) 2.2 Clark # (Auto) 1.0 H Eos # (Auto) 0.0 Baso # (Auto) 0.02 pCO2 pO2 HCO3 ABG pH ABG Total CO2 ABG O2 Saturation ABG O2 Content ABG Base Excess ABG Hemoglobin ABG Carboxyhemoglobin POC ABG HHb (Measured) ABG Methemoglobin ABG O2 Capacity Hgb O2 Saturation FiO2 Sodium 136 Potassium 3.9 Chloride 97 L Carbon Dioxide 27 Anion Gap 16 BUN 6 L Creatinine 0.8 Est GFR ( Amer) > 60 Est GFR (Non-Af Amer) > 60 Random Glucose 383 H* D Calcium 9.1 Magnesium 1.7 Total Bilirubin 0.6 AST 15 ALT 19 Alkaline Phosphatase 89 Total Protein 8.2 Albumin 3.8 Globulin 4.4 Albumin/Globulin Ratio 0.9 L Lipase 43 Urine Color yellow Urine Appearance Slight-cloudy Urine pH 6.0 Ur Specific [place] 1.020 Urine Protein 100 H Urine Glucose (UA) >=1000 Urine Ketones 15 H Urine Blood Large H Urine Nitrate Positive H Urine Bilirubin Negative Urine Urobilinogen 0.2 Ur Leukocyte Esterase Small H Urine RBC 25 - 30 Urine WBC 10 - 15 Ur Epithelial Cells 10 - 12 Amorphous Sediment Moderate 05/28/18 18:00 WBC RBC Hgb Hct MCV MCH MCHC RDW Plt Count MPV Gran % Lymph % (Auto) Clark % (Auto) Eos % (Auto) Baso % (Auto) Gran # Lymph # (Auto) Clark # (Auto) Eos # (Auto) Baso # (Auto) pCO2 33 L pO2 80.0 HCO3 25.1 ABG pH 7.49 H ABG Total CO2 26.1 ABG O2 Saturation 98.3 H ABG O2 Content 13.6 L ABG Base Excess 2.0 ABG Hemoglobin 10.1 L ABG Carboxyhemoglobin 2.3 H POC ABG HHb (Measured) 1.6 ABG Methemoglobin 0.9 ABG O2 Capacity 13.8 L Hgb O2 Saturation 95.3 FiO2 21.0 Sodium Potassium Chloride Carbon Dioxide Anion Gap BUN Creatinine Est GFR ( Amer) Est GFR (Non-Af Amer) Random Glucose Calcium Magnesium Total Bilirubin AST ALT Alkaline Phosphatase Total Protein Albumin Globulin Albumin/Globulin Ratio Lipase Urine Color Urine Appearance Urine pH Ur Specific [place] Urine Protein Urine Glucose (UA) Urine Ketones Urine Blood Urine Nitrate Urine Bilirubin Urine Urobilinogen Ur Leukocyte Esterase Urine RBC Urine WBC Ur Epithelial Cells Amorphous Sediment Assessment & Plan - Assessment and Plan (Free Text) Assessment: Pt is a 43 yo female with a PMH of DM, HLD, and obesity who presents with abdominal pain, flank, and back pain. Plan: Suspected Pylenonephritis - WBC 16.9, afebrile - random glucose 383 - lipase 43 - Blood cultures ordered - urinary catheter ordered - Urine culture and sensitivity ordered, catheterized specimen - UA ordered, catheterized specimen - ordered CBC, CMP, Mg, Phos - ordered NS 2L bolus - ordered Morphine 2mg q6h - ordered zofran - ordered toradol - ordered cefepime 1gram q8h - pt given 1 dose of ceftriaxone in ED - CTAP: perinephric fat stranding worrisome for inflammation and pyelonephritis , possible abscess within the left upper pole - gallbladder US: negative study DM - ordered HA1C - pt uses 36 units TID at home, pt normally uses 108 total units - for tighter glycemic control, a basal/ bolus insulin regiment was determined - ordered Levemir 25 units BID - ordered Lispro 15 AC TID - Ordered Lispro SSI - Medium - ordered finger stick glucose HLD - start home rosuvastatin Ppx - ordered lovenox, DVT ppx - ordered pantoprazole, GI ppx Pt seen, examined, assessment and plan discussed with Dr Freddy Hensley PGY1 - Date & Time Date: 05/28/18 Time: 08:00 <Red Hayes P - Last Filed: 05/29/18 07:22> Results - Vital Signs Recent Vital Signs: Last Vital Signs Temp 97.6 F 05/28/18 22:41 Pulse 101 H 05/28/18 22:41 Resp 16 05/28/18 22:41 BP 115/68 05/28/18 22:41 Pulse Ox 99 05/28/18 19:50 - Labs Result Diagrams: 05/28/18 16:07 05/29/18 06:30 Labs: Laboratory Results - last 24 hr 05/28/18 05/29/18 21:32 06:30 Sodium 139 Potassium 3.8 Chloride 103 Carbon Dioxide 27 Anion Gap 14 BUN 5 L Creatinine 0.7 Est GFR ( Amer) > 60 Est GFR (Non-Af Amer) > 60 Random Glucose 279 H Calcium 8.3 L Phosphorus 2.3 L Magnesium 1.7 Total Bilirubin 0.4 AST 14 ALT 15 Alkaline Phosphatase 78 Total Protein 7.6 Albumin 3.4 Globulin 4.2 Albumin/Globulin Ratio 0.8 L Urine Color Yellow Urine Appearance Clear Urine pH 6.5 Ur Specific [place] <= 1.005 Urine Protein 30 H Urine Glucose (UA) 500 H Urine Ketones 15 H Urine Blood Large H Urine Nitrate Positive H Urine Bilirubin Negative Urine Urobilinogen 0.2 Ur Leukocyte Esterase Negative Urine RBC 20 - 25 Urine WBC 2 - 5 Ur Epithelial Cells 6 - 8 Amorphous Sediment Trace Urine Bacteria Trace Attending/Attestation - Attestation I have personally seen and examined this patient.: Yes I have fully participated in the care of the patient.: Yes I have reviewed all pertinent clinical information: Yes Notes (Text): 05/29/18 07:18 Clinical impression of b/l renal parenchymal inflammation most likely from infection, on the left side appear going beyond the cortex in the upper pole, with leucocytosis, abnormal urine picture, Ct findings, uncontrolled DM, patient remained afebrile in the ER, but c/o chills at home Uncontrolled DM could be the cause of precipitation of the above Obese Plan IVF initial bolus as patient appeared to have some orthostatic symptoms Cefephime iv catheterized urine sample, hbga1c, procalcitonin. In hospital dm regime changed to levimer and lispro for better control GI/DVT prophylaxis See orders for detail.
[2018-05-28 20:14] LABS: VENOUS BLOOD GAS BASE EXCESS 2.8 mmol/L (0.0-2.0); VENOUS BLOOD GAS PO2 39 mm/Hg (30-55); VENOUS BLOOD PH 7.44 (7.32-7.43)
[2018-05-28] MEDS: Sodium Chloride 0.9% 1,000 ML IV SCH (20:48)
[2018-05-28] MEDS ORDERED: Dextrose 50% SYRINGE Inj (50 ml) IV PRN (21:05)
[2018-05-28 21:49] LABS: PH,URINE 6.5 (4.7-8.0); URINE BILIRUBIN NEGATIVE (NEGATIVE); URINE BLOOD LARGE (NEGATIVE); URINE GLUCOSE (UA) 500 mg/dL (NEGATIVE); URINE LEUKOCYTE ESTERASE NEGATIVE Leu/uL (NEGATIVE); URINE PROTEIN 30 mg/dL (<30 mg/dL); URINE UROBILINOGEN 0.2 E.U./dL (<1 E.U./dL)
[2018-05-28 22:02] LABS: URINE APPEARANCE CLEAR (CLEAR); URINE COLOR YELLOW (YELLOW)
[2018-05-28 22:03] LABS: URINE RBC 20 - 25 /hpf (0-2)
[2018-05-28 22:04] LABS: URINE AMORPHOUS SEDIMENT TRACE; URINE BACTERIA TRACE (NEG)
[2018-05-28] MEDS: Insulin Lispro (humaLOG) MEDIUM Coverage SC SCH (22:45)
[2018-05-28] MEDS: Insulin Detemir 100 units/ml Vial (Levemir) SC SCH (22:47)
[2018-05-28] MEDS: Cefepime 1gm in NS 100ml 1 GM/100 ML BAG IVPB SCH (22:48)
--- NOTE | 2018-05-29 01:52 | PCM.SEPTIC ---
Sepsis Progress Note - Reassessment Type Date of Evaluation: 05/29/18 Time of Evaluation: 12:45 Reassessment Type: Non-invasive reassessment - Non Invasive Reassessment Were the most recent vital sign reviewed: Yes Vital Sign (Latest): Temp Pulse Resp BP Pulse Ox 97.6 F 101 H 16 115/68 99 05/28/18 22:41 05/28/18 22:41 05/28/18 22:41 05/28/18 22:41 05/28/18 19:50 Cardiovascular: Yes: Tachycardia Respiratory: Yes: Normal Breath Sounds. No: Crackles, Rhonchi, Wheezing Capillary Refill: Normal (Less than 2 sec) Skin: Normal Color, Warm
[2018-05-29] MEDS ORDERED: Morphine 2 mg/ml ISec IVP ONE (02:55)
[2018-05-29] MEDS: Sodium Chloride 0.9% 1,000 ML IV SCH ×4 (03:12→20:20)
[2018-05-29] MEDS ORDERED: Pantoprazole 40 mg Susp UD PO SCH (06:00)
[2018-05-29] MEDS: Cefepime 1gm in NS 100ml 1 GM/100 ML BAG IVPB SCH (06:01)
[2018-05-29 06:53] LABS: MEAN CELL VOLUME 90.7 fl (80.0-105.0); MEAN PLATELET VOLUME 9.5 fl (7.0-11.0); RBC 3.67 10^6/uL (3.5-6.1); RED CELL DISTRIBUTION WIDTH 13.6 % (11.5-14.5); WHITE BLOOD COUNT 14.7 10^3/ul (4.5-11.0)
[2018-05-29 07:11] LABS: ALB/GLOB RATIO 0.8 (1.1-1.8); ALBUMIN 3.4 g/dL (3.0-4.8); ALT/SGPT 15 U/L (7-56); AST/SGOT 14 U/L (14-36); BLOOD UREA NITROGEN 5 mg/dL (7-21); CALCIUM 8.3 mg/dL (8.4-10.5); GFR NON-AFRICAN AMERICAN > 60
[2018-05-29] MEDS: Insulin Lispro 1 UNITS/0.01 ML SC SCH ×3 (08:26→16:34)
[2018-05-29] MEDS: Insulin Lispro (humaLOG) MEDIUM Coverage SC SCH ×4 (08:27→22:30)
--- NOTE | 2018-05-29 09:48 | CARD ---
APPROVED REPORT Date of service: 05/28/2018 EKG Measurement Heart [id number] <Conclusion> Sinus tachycardia Minimal voltage criteria for LVH, may be normal variant LAD No change
[2018-05-29] MEDS: Insulin Detemir 100 units/ml Vial (Levemir) SC SCH ×2 (10:14→22:35)
[2018-05-29] MEDS: Enoxaparin 40 mg Syringe SC SCH (10:14)
[2018-05-29] MEDS: cefTRIAXone 1 gm 1 GM/100 ML BAG IVPB SCH (10:14)
[2018-05-29] MEDS: Morphine 2 mg/ml ISec IVP PRN ×3 (11:48→21:21)
--- NOTE | 2018-05-29 11:50 | CP.PCM.PN ---
<Lester Guerrero Andres - Last Filed: 05/29/18 11:43> Subjective - Date & Time of Evaluation Date of Evaluation: 05/29/18 Time of Evaluation: 11:44 - Subjective Subjective: Medicine progress note: Cesar PGY - 2 IM resident Patient seen and examined at bedside. No new complaints, but patient is still complaining of pain. Patient had no other acute overnight events. Objective - Vital Signs/Intake and Output Vital Signs (last 24 hours): Temp Pulse Resp BP Pulse Ox 98.5 F 109 H 20 111/63 96 05/29/18 08:27 05/29/18 08:27 05/29/18 08:27 05/29/18 08:27 05/29/18 08:27 Intake and Output: 05/29/18 05/29/18 06:59 18:59 Intake Total 4200 Balance 4200 - Medications Medications: Current Medications Atorvastatin Calcium (Lipitor) 40 mg PO DAILY [facility] Last Admin: 05/29/18 10:14 Dose: 40 mg Dextrose (Dextrose 50% Inj) 0 ml IV STAT PRN; Protocol PRN Reason: Hypoglycemia Protocol Enoxaparin Sodium (Lovenox) 40 mg SC DAILY [facility] PRN Reason: Protocol Last Admin: 05/29/18 10:14 Dose: 40 mg Sodium Chloride (Sodium Chloride 0.9%) 1,000 mls @ 125 mls/hr IV .Q8H [facility] Last Admin: 05/29/18 10:15 Dose: 125 mls/hr Dextrose (Dextrose 5% In Water 1000 Ml) 1,000 mls @ 0 mls/hr IV .Q0M PRN; Protocol; Per Protocol PRN Reason: Hypoglycemia Protocol Ceftriaxone Sodium (Rocephin 1 Gram Ivpb) 1 gm in 100 mls @ 100 mls/hr IVPB DAILY [facility] PRN Reason: Protocol Last Admin: 05/29/18 10:14 Dose: 100 mls/hr Insulin Detemir (Levemir) 25 unit SC Q12 [facility] Last Admin: 05/29/18 10:14 Dose: 25 units Insulin Human Lispro (Humalog) 15 units SC ACTID [facility] Last Admin: 05/29/18 08:26 Dose: 15 units Insulin Human Lispro (Humalog Med) 0 units SC ACHS [facility] PRN Reason: Protocol Last Admin: 05/29/18 08:27 Dose: 5 units Morphine Sulfate (Morphine) 2 mg IVP Q4H PRN PRN Reason: Pain, severe (8-10) Ondansetron HCl (Zofran Inj) 4 mg IVP Q6H PRN PRN Reason: Nausea/Vomiting Pantoprazole Sodium (Protonix Ec Tab) 40 mg PO 0600 MORGAN Polyethylene Glycol (Miralax) 17 gm PO BID MORGAN - Labs Labs: 05/29/18 06:30 05/29/18 06:30 - Constitutional Appears: Well, No Acute Distress - Head Exam Head Exam: ATRAUMATIC, NORMAL INSPECTION, NORMOCEPHALIC - Eye Exam Eye Exam: EOMI, Normal appearance, PERRL Pupil Exam: NORMAL ACCOMODATION, PERRL - ENT Exam ENT Exam: Mucous Membranes Moist, Normal Exam - Neck Exam Neck Exam: Full ROM, Normal Inspection. absent: Lymphadenopathy - Respiratory Exam Respiratory Exam: Clear to Ausculation Bilateral, NORMAL BREATHING PATTERN - Cardiovascular Exam Cardiovascular Exam: REGULAR RHYTHM, +S1, +S2. absent: Murmur - GI/Abdominal Exam GI & Abdominal Exam: Soft, Normal Bowel Sounds. absent: Tenderness Additional comments: Morbidly obese - Extremities Exam Extremities Exam: Full ROM, Normal Capillary Refill, Normal Inspection. absent : Joint Swelling, Pedal Edema - Back Exam Back Exam: NORMAL INSPECTION Additional comments: Tenderness - Keven's sign - Neurological Exam Neurological Exam: Alert, Awake, CN II-XII Intact, Normal Gait, Oriented x3 - Psychiatric Exam Psychiatric exam: Normal Affect, Normal Mood - Skin Skin Exam: Dry, Intact, Normal Color, Warm Assessment and Plan - Assessment and Plan (Free Text) Assessment: 43 year old female admitted for pyelonephritis and hyperglycemia. Patient's CT Abdomen and Pelvis showed perinephric stranding; Vitals reveal tachycardia and Labs reveal leukocytosis, so patient is technically septic. Patient is also severely hyperglycemic on admission with A1C of 12.3 and glc on admission of 315 , which has normalized now. Pylenonephritis - Blood cultures ordered, Urine culture and sensitivity ordered, catheterized specimen, UA ordered, catheterized specimen - Urinary catheter ordered - NS @ 150 mls/hr; Morphine 2mg q4h; Zofran 4 q6 prn, Rocephin daily - CTAP: perinephric fat stranding worrisome for inflammation and pyelonephritis , possible abscess within the left upper pole - GB US: negative study DM - Levemir 25 units BID, Lispro 15 AC TID, Lispro Medium ISS - FS glucose HLD - Start home rosuvastatin Ppx - Lovenox, DVT ppx - Pantoprazole, GI ppx <Jordan Baxter - Last Filed: 05/30/18 19:10> Objective - Vital Signs/Intake and Output Vital Signs (last 24 hours): Temp Pulse Resp BP Pulse Ox 97.6 F 85 20 114/54 L 99 05/30/18 16:15 05/30/18 16:15 05/30/18 16:15 05/30/18 16:15 05/30/18 16:15 - Medications Medications: Current Medications Atorvastatin Calcium (Lipitor) 40 mg PO DAILY [facility] Last Admin: 05/30/18 11:13 Dose: 40 mg Dextrose (Dextrose 50% Inj) 0 ml IV STAT PRN; Protocol PRN Reason: Hypoglycemia Protocol Enoxaparin Sodium (Lovenox) 40 mg SC DAILY [facility] PRN Reason: Protocol Last Admin: 05/30/18 11:12 Dose: 40 mg Dextrose (Dextrose 5% In Water 1000 Ml) 1,000 mls @ 0 mls/hr IV .Q0M PRN; Protocol; Per Protocol PRN Reason: Hypoglycemia Protocol Ceftriaxone Sodium (Rocephin 1 Gram Ivpb) 1 gm in 100 mls @ 100 mls/hr IVPB DAILY [facility] PRN Reason: Protocol Last Admin: 05/30/18 11:13 Dose: 100 mls/hr Insulin Detemir (Levemir) 25 unit SC Q12 [facility] Last Admin: 05/30/18 11:15 Dose: 25 units Insulin Human Lispro (Humalog) 15 units SC ACTID [facility] Last Admin: 05/30/18 17:21 Dose: 15 units Insulin Human Lispro (Humalog Med) 0 units SC ACHS [facility] PRN Reason: Protocol Last Admin: 05/30/18 17:19 Dose: Not Given Morphine Sulfate (Morphine) 2 mg IVP Q4H PRN PRN Reason: Pain, severe (8-10) Last Admin: 05/30/18 05:54 Dose: 2 mg Ondansetron HCl (Zofran Inj) 4 mg IVP Q6H PRN PRN Reason: Nausea/Vomiting Last Admin: 05/29/18 11:49 Dose: 4 mg Pantoprazole Sodium (Protonix Ec Tab) 40 mg PO 0600 MORGAN Last Admin: 05/30/18 05:52 Dose: 40 mg Polyethylene Glycol (Miralax) 17 gm PO BID MORGAN Last Admin: 05/30/18 17:21 Dose: 17 gm - Labs Labs: 05/30/18 06:30 05/30/18 06:30 Attending/Attestation - Attestation I have personally seen and examined this patient.: Yes I have fully participated in the care of the patient.: Yes I have reviewed all pertinent clinical information, including history, physical exam and plan: Yes
[2018-05-29] MEDS: POLYETHYLENE GLYCOL 3350 17 GM/Dose PACKET PO SCH ×2 (11:51→17:52)
[2018-05-29 17:11] VITALS: RESP 20
[2018-05-30] MEDS: Sodium Chloride 0.9% 1,000 ML IV SCH (04:00)
[2018-05-30] MEDS: Pantoprazole 40 mg EC Tab PO SCH (05:52)
[2018-05-30] MEDS: Morphine 2 mg/ml ISec IVP PRN (05:54)
[2018-05-30 07:11] LABS: ALB/GLOB RATIO 0.8 (1.1-1.8); ALT/SGPT 13 U/L (7-56); AST/SGOT 16 U/L (14-36); BLOOD UREA NITROGEN 3 mg/dL (7-21); CALCIUM 7.9 mg/dL (8.4-10.5); GFR NON-AFRICAN AMERICAN > 60
[2018-05-30 07:15] LABS: HEMOGLOBIN 8.5 g/dL (12.0-16.0); MEAN CELL VOLUME 90.8 fl (80.0-105.0); MEAN CORPUSCULAR HEMOGLOBIN 28.9 pg (25.0-35.0); MEAN CORPUSCULAR HGB CONC 31.8 g/dl (31.0-37.0); MEAN PLATELET VOLUME 9.4 fl (7.0-11.0); RBC 2.94 10^6/uL (3.5-6.1); RED CELL DISTRIBUTION WIDTH 13.5 % (11.5-14.5); WHITE BLOOD COUNT 10.9 10^3/ul (4.5-11.0)
--- NOTE | 2018-05-30 08:49 | CON ---
Copied To: Marc Mayberry MD Attending MD: Marc Mayberry MD DATE: 05/30/2018 LOCATION: The patient is seen in room 368 this morning. CHIEF COMPLAINT: Right-sided flank pain x several days. HISTORY OF PRESENT ILLNESS: This is a 43-year-old female with past medical history significant for anemia, morbid obesity, and diabetes mellitus. The patient has morbid obesity with a BMI of 46 and high cholesterol who is seen in the emergency room by with right-sided abdominal pain and right-sided flank pain. The patient had nausea and vomiting and she had low-grade fevers, occasional chills. She had problems with urination and frequency. REVIEW OF SYSTEMS: A 12-point review of systems is performed. No headaches, no blurred vision, no cough, no chest pain. No diarrhea or constipation. No new joint pain. No rash. PAST MEDICAL HISTORY: Significant for diabetes mellitus, high cholesterol, anemia, and morbid obesity with BMI of 46. PAST SURGICAL HISTORY: Noncontributory. MEDICATIONS AT HOME: Reveals the patient to be on Crestor and insulin. SOCIAL HISTORY: The patient has no recent travel history. PHYSICAL EXAMINATION: VITAL SIGNS: Patient's temperature is 98, heart rate of 119, respiratory rate of 20, blood pressure is 104/60. HEENT: Unremarkable. NECK: Supple. LUNGS: Have decreased breath sounds. HEART: Normal S1, S2. ABDOMEN: Soft, nontender. No rebound or guarding. No masses. There is right-sided CVA tenderness. LABORATORY EXAMINATION: Reveals a white count of 16,900, hemoglobin 11, platelets of 424, 81% granulocytosis and chemistries reveals a BUN of 5, creatinine of 0.7 and procalcitonin 0.26. Urinalysis reveals 10-15 wbc's, 25-30 rbc's, positive nitrites, greater than 15 ketones and proteins present and leukocyte esterase is positive. Blood cultures are negative. Urine culture is gram-negative yusef. Blood cultures have no growth. The patient had a CAT scan of the abdomen and pelvis, which reveals right pyelonephritis and questionable possibly developing an abscess in the left upper pole and microbiology from previous admissions reveals the patient did have E. Coli in the urine in 12/2015, which was pansensitive. ASSESSMENT AND PLAN: A 43-year-old morbidly obese female with body mass index of 46, diabetes, high cholesterol, anemia, presenting with tachycardia, leukocytosis, flank pain, positive urinalysis and urine cultures and gram negative yusef. 1. Sepsis with right pyelonephritis with gram-negative yusef in the urine culture. Negative blood cultures. We will treat the patient with ceftriaxone and check on the final blood cultures, check on identification sensitivity of the gram-negative yusef. We will order an HIV because of her age. We will follow closely with you. Marc Mayberry MD
[2018-05-30] MEDS: Insulin Lispro (humaLOG) MEDIUM Coverage SC SCH ×4 (09:09→21:23)
[2018-05-30] MEDS: Insulin Lispro 1 UNITS/0.01 ML SC SCH ×3 (09:11→17:21)
[2018-05-30] MEDS ORDERED: Potassium Chloride 40 mEq/30 ml LIQ UD PO ONE (10:21)
[2018-05-30] MEDS: Enoxaparin 40 mg Syringe SC SCH (11:12)
[2018-05-30] MEDS: POLYETHYLENE GLYCOL 3350 17 GM/Dose PACKET PO SCH ×2 (11:13→17:21)
[2018-05-30] MEDS: cefTRIAXone 1 gm 1 GM/100 ML BAG IVPB SCH (11:13)
[2018-05-30] MEDS: Insulin Detemir 100 units/ml Vial (Levemir) SC SCH ×2 (11:15→21:25)
--- NOTE | 2018-05-30 16:26 | US ---
Date of service: 05/30/18 Renal spleen ultrasound Comparison: None available Indication: Perinephric stranding Findings: The spleen measures approximately 10.1 cm and appears grossly unremarkable. The left kidney measures approximately 10.9 x 5.3 x 5.9 cm without evidence of hydronephrosis or obstructing calculus. The right kidney measures approximately 12.0 x 6.6 x 6.6 cm without evidence of obstructing calculus or hydronephrosis. Nonobstructing 7 mm midpole right renal calculus identified. Impression: No hydronephrosis or obstructing calculus identified. Nonobstructing 7 mm midpole right renal calculus identified.
--- NOTE | 2018-05-30 17:15 | CP.PCM.PN ---
<Parish De La Vega - Last Filed: 05/30/18 17:11> Subjective - Date & Time of Evaluation Date of Evaluation: 05/30/18 Time of Evaluation: 10:45 - Subjective Subjective: Parish De La Vega DO PGY-1, [employer]ist Medicine Progress Note Pt seen and examined at bedside this am. Pt still c/o R-sided abdominal pain that radiates laterally and goes to her R back. States pain is still present despite pain meds. Denies fever or chills. Reports she still has decreased appetite. Observed ambulating around room. Denies headache, dizziness, chest pain, shortness of breath, urinary complaints, or other symptoms. Objective - Vital Signs/Intake and Output Vital Signs (last 24 hours): Temp Pulse Resp BP Pulse Ox 97.6 F 85 20 114/54 L 99 05/30/18 16:15 05/30/18 16:15 05/30/18 16:15 05/30/18 16:15 05/30/18 16:15 - Medications Medications: Current Medications Atorvastatin Calcium (Lipitor) 40 mg PO DAILY [facility] Last Admin: 05/30/18 11:13 Dose: 40 mg Dextrose (Dextrose 50% Inj) 0 ml IV STAT PRN; Protocol PRN Reason: Hypoglycemia Protocol Enoxaparin Sodium (Lovenox) 40 mg SC DAILY [facility] PRN Reason: Protocol Last Admin: 05/30/18 11:12 Dose: 40 mg Sodium Chloride (Sodium Chloride 0.9%) 1,000 mls @ 125 mls/hr IV .Q8H [facility] Last Admin: 05/30/18 04:00 Dose: 125 mls/hr Dextrose (Dextrose 5% In Water 1000 Ml) 1,000 mls @ 0 mls/hr IV .Q0M PRN; Protocol; Per Protocol PRN Reason: Hypoglycemia Protocol Ceftriaxone Sodium (Rocephin 1 Gram Ivpb) 1 gm in 100 mls @ 100 mls/hr IVPB DAILY [facility] PRN Reason: Protocol Last Admin: 05/30/18 11:13 Dose: 100 mls/hr Insulin Detemir (Levemir) 25 unit SC Q12 [facility] Last Admin: 05/30/18 11:15 Dose: 25 units Insulin Human Lispro (Humalog) 15 units SC ACTID [facility] Last Admin: 05/30/18 13:51 Dose: 15 units Insulin Human Lispro (Humalog Med) 0 units SC ACHS [facility] PRN Reason: Protocol Last Admin: 05/30/18 13:52 Dose: 1 units Morphine Sulfate (Morphine) 2 mg IVP Q4H PRN PRN Reason: Pain, severe (8-10) Last Admin: 05/30/18 05:54 Dose: 2 mg Ondansetron HCl (Zofran Inj) 4 mg IVP Q6H PRN PRN Reason: Nausea/Vomiting Last Admin: 05/29/18 11:49 Dose: 4 mg Pantoprazole Sodium (Protonix Ec Tab) 40 mg PO 0600 [facility] Last Admin: 05/30/18 05:52 Dose: 40 mg Polyethylene Glycol (Miralax) 17 gm PO BID [facility] Last Admin: 05/30/18 11:13 Dose: 17 gm - Labs Labs: 05/30/18 06:30 05/30/18 06:30 - Constitutional Appears: Non-toxic, No Acute Distress - Head Exam Head Exam: ATRAUMATIC, NORMAL INSPECTION - Eye Exam Eye Exam: EOMI, Normal appearance, PERRL - ENT Exam ENT Exam: Mucous Membranes Moist - Respiratory Exam Respiratory Exam: Clear to Ausculation Bilateral, NORMAL BREATHING PATTERN - Cardiovascular Exam Cardiovascular Exam: REGULAR RHYTHM, +S1, +S2. absent: Gallop, Rubs, Murmur - GI/Abdominal Exam GI & Abdominal Exam: Soft, Normal Bowel Sounds Additional comments: Tenderness to palpation in RLQ radiating to lateral abdominal wall, pos CVA tenderness on R side, no rebound tenderness, soft, mild distension - Extremities Exam Extremities Exam: Full ROM, Normal Capillary Refill, Normal Inspection - Neurological Exam Neurological Exam: Alert, Awake, CN II-XII Intact, Normal Gait, Oriented x3 - Skin Skin Exam: Dry, Intact, Normal Color, Warm Assessment and Plan - Assessment and Plan (Free Text) Assessment: 43 year old female admitted for pyelonephritis and hyperglycemia. Patient's CT Abdomen and Pelvis showed perinephric stranding, concern for r/o perinephric abscess; Vitals reveal tachycardia and Labs reveal leukocytosis, which has improved today. Patient is also severely hyperglycemic on admission with A1C of 12.3 and glc on admission of 315. Fingersticks more controlled on insulin regimen inpatient. Renal U/s on 05/30/18 demonstrated 7 mm non-obstructing renal calculus in R kidney. ID (Dr. Mayberry) and Urology (Dr. Garcia) consulted. Plan: Pyelonephritis - Blood cultures ordered, Urine culture and sensitivity ordered, catheterized specimen, UA ordered, catheterized specimen - Urine cx growing - Urinary catheter d/c'd - Fluids d/c'd; Morphine 2mg q4h; Zofran 4 q6 prn, Rocephin day #2 - CTAP: perinephric fat stranding worrisome for inflammation and pyelonephritis , possible abscess within the left upper pole - GB US: negative study - Renal U/s: results described above - Pending HIV test as per ID DM - Levemir 25 units BID, Lispro 15 AC TID, Lispro Medium ISS - FS glucose; continue to trend inpatient - Hgb A1c 12.3 - DM education consulted HLD - C/w Lipitor daily Ppx - Lovenox, DVT ppx - Pantoprazole, GI ppx Pt seen, examined with, and plan discussed with Dr. Rene, attending. <Hermes Rene - Last Filed: 05/30/18 21:43> Objective - Vital Signs/Intake and Output Vital Signs (last 24 hours): Temp Pulse Resp BP Pulse Ox 97.6 F 85 20 114/54 L 99 05/30/18 16:15 05/30/18 16:15 05/30/18 16:15 05/30/18 16:15 05/30/18 16:15 - Medications Medications: Current Medications Atorvastatin Calcium (Lipitor) 40 mg PO DAILY [facility] Last Admin: 05/30/18 11:13 Dose: 40 mg Dextrose (Dextrose 50% Inj) 0 ml IV STAT PRN; Protocol PRN Reason: Hypoglycemia Protocol Enoxaparin Sodium (Lovenox) 40 mg SC DAILY [facility] PRN Reason: Protocol Last Admin: 05/30/18 11:12 Dose: 40 mg Dextrose (Dextrose 5% In Water 1000 Ml) 1,000 mls @ 0 mls/hr IV .Q0M PRN; Protocol; Per Protocol PRN Reason: Hypoglycemia Protocol Ceftriaxone Sodium (Rocephin 1 Gram Ivpb) 1 gm in 100 mls @ 100 mls/hr IVPB DAILY [facility] PRN Reason: Protocol Last Admin: 05/30/18 11:13 Dose: 100 mls/hr Insulin Detemir (Levemir) 25 unit SC Q12 [facility] Last Admin: 05/30/18 21:25 Dose: 25 units Insulin Human Lispro (Humalog) 15 units SC ACTID [facility] Last Admin: 05/30/18 17:21 Dose: 15 units Insulin Human Lispro (Humalog Med) 0 units SC ACHS [facility] PRN Reason: Protocol Last Admin: 05/30/18 21:23 Dose: Not Given Morphine Sulfate (Morphine) 2 mg IVP Q4H PRN PRN Reason: Pain, severe (8-10) Last Admin: 05/30/18 05:54 Dose: 2 mg Ondansetron HCl (Zofran Inj) 4 mg IVP Q6H PRN PRN Reason: Nausea/Vomiting Last Admin: 05/29/18 11:49 Dose: 4 mg Pantoprazole Sodium (Protonix Ec Tab) 40 mg PO 0600 [facility] Last Admin: 05/30/18 05:52 Dose: 40 mg Polyethylene Glycol (Miralax) 17 gm PO BID [facility] Last Admin: 05/30/18 17:21 Dose: 17 gm - Labs Labs: 05/30/18 06:30 05/30/18 06:30 Attending/Attestation - Attestation I have personally seen and examined this patient.: Yes I have fully participated in the care of the patient.: Yes I have reviewed all pertinent clinical information, including history, physical exam and plan: Yes Notes (Text): 05/30/18 21:41 Patient seen and examined at bedside. Vitals, labs and notes reviewed. Her pain levels are still fluctuating between 6-8/10 today with radiation to the groin. Agree with the plan of care as outlined by the resident.
[2018-05-31] MEDS: Morphine 2 mg/ml ISec IVP PRN (00:32)
[2018-05-31] MEDS: Pantoprazole 40 mg EC Tab PO SCH (05:43)
[2018-05-31 07:41] LABS: ALB/GLOB RATIO 0.8 (1.1-1.8); ALBUMIN 3.5 g/dL (3.0-4.8); ALT/SGPT 12 U/L (7-56); AST/SGOT 17 U/L (14-36); BLOOD UREA NITROGEN 5 mg/dL (7-21); CALCIUM 8.8 mg/dL (8.4-10.5); GFR NON-AFRICAN AMERICAN > 60
[2018-05-31 07:41] LABS: MEAN CELL VOLUME 89.3 fl (80.0-105.0); MEAN CORPUSCULAR HEMOGLOBIN 29.7 pg (25.0-35.0); MEAN CORPUSCULAR HGB CONC 33.2 g/dl (31.0-37.0); MEAN PLATELET VOLUME 9.5 fl (7.0-11.0); RBC 3.64 10^6/uL (3.5-6.1); RED CELL DISTRIBUTION WIDTH 13.3 % (11.5-14.5); WHITE BLOOD COUNT 7.8 10^3/ul (4.5-11.0)
[2018-05-31 07:42] LABS: HEMOGLOBIN 10.8 g/dL (12.0-16.0)
[2018-05-31] MEDS: Insulin Lispro (humaLOG) MEDIUM Coverage SC SCH ×4 (08:07→21:50)
[2018-05-31] MEDS: Insulin Lispro 1 UNITS/0.01 ML SC SCH ×3 (08:07→17:07)
[2018-05-31 08:43] VITALS: O2SAT 100
[2018-05-31] MEDS: cefTRIAXone 1 gm 1 GM/100 ML BAG IVPB SCH ×2 (09:39→11:00)
[2018-05-31] MEDS: Enoxaparin 40 mg Syringe SC SCH (09:39)
[2018-05-31] MEDS: POLYETHYLENE GLYCOL 3350 17 GM/Dose PACKET PO SCH ×2 (09:39→17:07)
[2018-05-31] MEDS: Insulin Detemir 100 units/ml Vial (Levemir) SC SCH ×2 (09:39→22:36)
--- NOTE | 2018-05-31 14:14 | PN ---
Copied To: Marc Mayberry MD Attending MD: Marc Mayberry MD DATE: 05/31/2018 SUBJECTIVE: The patient is in bed, in no acute distress, nontoxic. PHYSICAL EXAMINATION: VITAL SIGNS: Temperature is 98, blood pressure is 126/90, respiratory rate of 20, heart rate of 74. HEENT: Unremarkable. NECK: Supple. LUNGS: Decreased breath sounds. HEART: Normal S1, S2. ABDOMEN: Soft, nontender. LABORATORY EXAMINATION: Reveals a white count of 7.8, hemoglobin of 10, and platelets of 386. Chemistries reveal a BUN of 5, creatinine of 0.6. Procalcitonin is 0.26. Urinalysis is noted. Microbiology reveals the patient has blood cultures with no growth. Repeat urine cultures negative. The initial urine culture is Klebsiella pneumoniae, it is pansensitive, sensitive to ceftriaxone, sensitive to Cipro. Dr. Rene's note is reviewed. The patient's CAT scan report is reviewed. The patient had an ultrasound of the spleen. ASSESSMENT AND PLAN: A 43-year-old female who has morbid obesity with a body mass index of 46, diabetes mellitus, high cholesterol, admitted with sepsis with Klebsiella pneumoniae, right pyelonephritis with negative blood cultures. Repeat cultures and urine are negative. The patient did not have any fevers on admission; however, she did have leukocytosis of 16,000 which is improved. Her pain is improved, although she is still having pain. Upon discharge, may switch to p.o. Cipro at 500 mg b.i.d. for a total of 10 to 14 days of antibiotics. Review of the EKG reveals a QTC of 456 and we will discuss with Dr. Rene. Currently, the patient is on ceftriaxone and may be able to switch to p.o. Cipro upon discharge 500 p.o. b.i.d. for a total of 10 to 14 days in the patient with sepsis, Klebsiella, right pyelonephritis, urine as the source. Marc Mayberry MD
--- NOTE | 2018-05-31 18:46 | CP.PCM.PN ---
<Parish De La Vega - Last Filed: 05/31/18 18:42> Subjective - Date & Time of Evaluation Date of Evaluation: 05/31/18 Time of Evaluation: 08:15 - Subjective Subjective: Parish De La Vega DO PGY-1, [employer] Medicine Progress Note Pt seen and examined at bedside this am. Per overnight report, pt's IV was displaced, pt had infiltrate relieved with compresses and vaseline on affected arm. Pt was concerned this am about pain, stating newly placed site on L forearm was swollen earlier, improved, but was scratcher tender to palpation. Otherwise pt states appetite has improved, her energy is better, and she is able to tolerate fluids better. Otherwise denies any acute concerns. Pt on IV antibiotics. Denies fever, chills, chest pain, shortness of breath, n/v/d/c, abd pain, urinary complaints, or other symptoms. Objective - Vital Signs/Intake and Output Vital Signs (last 24 hours): Temp Pulse Resp BP Pulse Ox 97.2 F L 92 H 20 115/81 100 05/31/18 16:50 05/31/18 18:00 05/31/18 16:50 05/31/18 16:50 05/31/18 16:50 - Medications Medications: Current Medications Atorvastatin Calcium (Lipitor) 40 mg PO DAILY [facility] Last Admin: 05/31/18 09:39 Dose: 40 mg Dextrose (Dextrose 50% Inj) 0 ml IV STAT PRN; Protocol PRN Reason: Hypoglycemia Protocol Enoxaparin Sodium (Lovenox) 40 mg SC DAILY [facility] PRN Reason: Protocol Last Admin: 05/31/18 09:39 Dose: 40 mg Dextrose (Dextrose 5% In Water 1000 Ml) 1,000 mls @ 0 mls/hr IV .Q0M PRN; Protocol; Per Protocol PRN Reason: Hypoglycemia Protocol Ceftriaxone Sodium (Rocephin 1 Gram Ivpb) 1 gm in 100 mls @ 100 mls/hr IVPB DAILY [facility] PRN Reason: Protocol Last Admin: 05/31/18 11:00 Dose: Not Given Insulin Detemir (Levemir) 25 unit SC Q12 [facility] Last Admin: 05/31/18 09:39 Dose: 25 units Insulin Human Lispro (Humalog) 15 units SC ACTID [facility] Last Admin: 05/31/18 17:07 Dose: 15 units Insulin Human Lispro (Humalog Med) 0 units SC ACHS [facility] PRN Reason: Protocol Last Admin: 05/31/18 17:08 Dose: 1 units Morphine Sulfate (Morphine) 2 mg IVP Q4H PRN PRN Reason: Pain, severe (8-10) Last Admin: 05/31/18 00:32 Dose: 2 mg Ondansetron HCl (Zofran Inj) 4 mg IVP Q6H PRN PRN Reason: Nausea/Vomiting Last Admin: 05/29/18 11:49 Dose: 4 mg Pantoprazole Sodium (Protonix Ec Tab) 40 mg PO 0600 [facility] Last Admin: 05/31/18 05:43 Dose: 40 mg Polyethylene Glycol (Miralax) 17 gm PO BID [facility] Last Admin: 05/31/18 17:07 Dose: 17 gm - Labs Labs: 05/31/18 06:30 05/31/18 07:00 - Constitutional Appears: Non-toxic, No Acute Distress - Head Exam Head Exam: ATRAUMATIC, NORMAL INSPECTION - Eye Exam Eye Exam: EOMI, Normal appearance, PERRL - ENT Exam ENT Exam: Mucous Membranes Moist, Normal Oropharynx - Respiratory Exam Respiratory Exam: Clear to Ausculation Bilateral, NORMAL BREATHING PATTERN - Cardiovascular Exam Cardiovascular Exam: REGULAR RHYTHM, +S1, +S2 - GI/Abdominal Exam GI & Abdominal Exam: Soft, Normal Bowel Sounds Additional comments: Mild tenderness to palpation in RLQ, pos CVA tenderness on R side - Extremities Exam Extremities Exam: Full ROM, Normal Capillary Refill, Normal Inspection Additional comments: IV site inspected on R arm, no erythema, dry and intact, mildly tender to palpation - Neurological Exam Neurological Exam: Alert, Awake, CN II-XII Intact, Normal Gait, Oriented x3 - Skin Skin Exam: Dry, Intact, Warm Assessment and Plan - Assessment and Plan (Free Text) Assessment: 43 year old female admitted for pyelonephritis and hyperglycemia. Patient's CT Abdomen and Pelvis showed perinephric stranding, concern for r/o perinephric abscess; Vitals reveal tachycardia and Labs reveal leukocytosis, which has improved today. Patient is also severely hyperglycemic on admission with A1C of 12.3 and glc on admission of 315. Fingersticks more controlled on insulin regimen inpatient. Renal U/s on 05/30/18 demonstrated 7 mm non-obstructing renal calculus in R kidney. ID (Dr. Mayberry) and Urology (Dr. Garcia) consulted. Plan: Pyelonephritis - Blood cultures ordered, Urine culture and sensitivity ordered, catheterized specimen, UA ordered, catheterized specimen - Urine cx growing Klebsiella - Improving leukocytosis - Urinary catheter d/c'd - Fluids d/c'd; Morphine 2mg q4h; Zofran 4 q6 prn, Rocephin day #3; per ID pt can be switched to PO Cipro on d/c for total of 10-14 d of therapy - EKG demonstrated QTc prolongation on admission, will continue to monitor for side effects - CTAP: perinephric fat stranding worrisome for inflammation and pyelonephritis , possible abscess within the left upper pole - GB US: negative study - Renal U/s: results described above - Pending HIV test as per ID DM - Levemir 25 units BID, Lispro 15 AC TID, Lispro Medium ISS - FS glucose; continue to trend inpatient - Hgb A1c 12.3 - DM education consulted HLD - C/w Lipitor daily Ppx - Lovenox, DVT ppx - Pantoprazole, GI ppx Pt seen, examined with, and plan discussed with Dr. Rene, attending. <Hermes Rene - Last Filed: 05/31/18 22:00> Objective - Vital Signs/Intake and Output Vital Signs (last 24 hours): Temp Pulse Resp BP Pulse Ox 97.2 F L 92 H 20 115/81 100 05/31/18 16:50 05/31/18 18:00 05/31/18 16:50 05/31/18 16:50 05/31/18 16:50 - Medications Medications: Current Medications Atorvastatin Calcium (Lipitor) 40 mg PO DAILY [facility] Last Admin: 05/31/18 09:39 Dose: 40 mg Dextrose (Dextrose 50% Inj) 0 ml IV STAT PRN; Protocol PRN Reason: Hypoglycemia Protocol Enoxaparin Sodium (Lovenox) 40 mg SC DAILY [facility] PRN Reason: Protocol Last Admin: 05/31/18 09:39 Dose: 40 mg Dextrose (Dextrose 5% In Water 1000 Ml) 1,000 mls @ 0 mls/hr IV .Q0M PRN; Protocol; Per Protocol PRN Reason: Hypoglycemia Protocol Ceftriaxone Sodium (Rocephin 1 Gram Ivpb) 1 gm in 100 mls @ 100 mls/hr IVPB DAILY [facility] PRN Reason: Protocol Last Admin: 05/31/18 11:00 Dose: Not Given Insulin Detemir (Levemir) 25 unit SC Q12 [facility] Last Admin: 05/31/18 09:39 Dose: 25 units Insulin Human Lispro (Humalog) 15 units SC ACTID [facility] Last Admin: 05/31/18 17:07 Dose: 15 units Insulin Human Lispro (Humalog Med) 0 units SC ACHS [facility] PRN Reason: Protocol Last Admin: 05/31/18 21:50 Dose: Not Given Morphine Sulfate (Morphine) 2 mg IVP Q4H PRN PRN Reason: Pain, severe (8-10) Last Admin: 05/31/18 00:32 Dose: 2 mg Ondansetron HCl (Zofran Inj) 4 mg IVP Q6H PRN PRN Reason: Nausea/Vomiting Last Admin: 05/29/18 11:49 Dose: 4 mg Pantoprazole Sodium (Protonix Ec Tab) 40 mg PO 0600 [facility] Last Admin: 05/31/18 05:43 Dose: 40 mg Polyethylene Glycol (Miralax) 17 gm PO BID [facility] Last Admin: 05/31/18 17:07 Dose: 17 gm - Labs Labs: 05/31/18 06:30 05/31/18 07:00 Attending/Attestation - Attestation I have fully participated in the care of the patient.: Yes I have reviewed all pertinent clinical information, including history, physical exam and plan: Yes Notes (Text): 05/31/18 21:58 patient seen and examined at bedside. labs, vitals and notes reviewed. Overall she feels better with improvement in her right flank pain. On antibiotics for her pyelonephritis. ID consult noted. Plan to repeat an EKG in AM to asses for QTc prolongation prior to initiating a discharge regimen of Cipro. Agree with the plan as discussed and outlined by the resident.
--- NOTE | 2018-06-01 06:02 | CP.PCM.PN ---
Subjective - Date & Time of Evaluation Date of Evaluation: 06/01/18 Time of Evaluation: 06:00 - Subjective Subjective: Pt seen and examined this morning. Pt reports some abdominal pain. She denies n/ v/c/d, or urinary symptoms. Pt does not have an IV a this time. Objective - Vital Signs/Intake and Output Vital Signs (last 24 hours): Temp Pulse Resp BP Pulse Ox 97.2 F L 92 H 20 115/81 100 05/31/18 16:50 05/31/18 18:00 05/31/18 16:50 05/31/18 16:50 05/31/18 16:50 - Medications Medications: Current Medications Atorvastatin Calcium (Lipitor) 40 mg PO DAILY [facility] Last Admin: 05/31/18 09:39 Dose: 40 mg Dextrose (Dextrose 50% Inj) 0 ml IV STAT PRN; Protocol PRN Reason: Hypoglycemia Protocol Enoxaparin Sodium (Lovenox) 40 mg SC DAILY [facility] PRN Reason: Protocol Last Admin: 05/31/18 09:39 Dose: 40 mg Dextrose (Dextrose 5% In Water 1000 Ml) 1,000 mls @ 0 mls/hr IV .Q0M PRN; Protocol; Per Protocol PRN Reason: Hypoglycemia Protocol Ceftriaxone Sodium (Rocephin 1 Gram Ivpb) 1 gm in 100 mls @ 100 mls/hr IVPB DAILY [facility] PRN Reason: Protocol Last Admin: 05/31/18 11:00 Dose: Not Given Insulin Detemir (Levemir) 25 unit SC Q12 [facility] Last Admin: 05/31/18 22:36 Dose: 25 units Insulin Human Lispro (Humalog) 15 units SC ACTID [facility] Last Admin: 05/31/18 17:07 Dose: 15 units Insulin Human Lispro (Humalog Med) 0 units SC ACHS [facility] PRN Reason: Protocol Last Admin: 05/31/18 21:50 Dose: Not Given Morphine Sulfate (Morphine) 2 mg IVP Q4H PRN PRN Reason: Pain, severe (8-10) Last Admin: 05/31/18 00:32 Dose: 2 mg Ondansetron HCl (Zofran Inj) 4 mg IVP Q6H PRN PRN Reason: Nausea/Vomiting Last Admin: 05/29/18 11:49 Dose: 4 mg Pantoprazole Sodium (Protonix Ec Tab) 40 mg PO 0600 [facility] Last Admin: 05/31/18 05:43 Dose: 40 mg Polyethylene Glycol (Miralax) 17 gm PO BID [facility] Last Admin: 05/31/18 17:07 Dose: 17 gm - Labs Labs: 05/31/18 06:30 05/31/18 07:00 - Constitutional Appears: No Acute Distress - Head Exam Head Exam: ATRAUMATIC, NORMOCEPHALIC - Eye Exam Eye Exam: EOMI - ENT Exam ENT Exam: Mucous Membranes Moist - Neck Exam Neck Exam: Full ROM - Respiratory Exam Respiratory Exam: Clear to Ausculation Bilateral, NORMAL BREATHING PATTERN. absent: Rhonchi, Wheezes, Stridor - Cardiovascular Exam Cardiovascular Exam: RRR, +S1, +S2. absent: Diastolic murmur, JVD, Murmur - GI/Abdominal Exam GI & Abdominal Exam: Soft, Tenderness, Normal Bowel Sounds. absent: Distended, Firm, Guarding, Rigid, Rebound - Extremities Exam Extremities Exam: Full ROM. absent: Calf Tenderness, Pedal Edema, Tenderness - Back Exam Back Exam: Full ROM. absent: CVA tenderness (L), CVA tenderness (R) - Neurological Exam Neurological Exam: Alert, Awake, Oriented x3 - Psychiatric Exam Psychiatric exam: Normal Affect, Normal Mood - Skin Skin Exam: Dry, Normal Color, Warm
[2018-06-01] MEDS: Pantoprazole 40 mg EC Tab PO SCH (06:10)
[2018-06-01 07:41] LABS: ALB/GLOB RATIO 0.8 (1.1-1.8); ALT/SGPT 14 U/L (7-56); AST/SGOT 29 U/L (14-36); BLOOD UREA NITROGEN 5 mg/dL (7-21); CALCIUM 8.7 mg/dL (8.4-10.5); GFR NON-AFRICAN AMERICAN > 60
[2018-06-01 08:32] VITALS: BP 123/84; TEMP 98
[2018-06-01] MEDS: Insulin Lispro 1 UNITS/0.01 ML SC SCH (09:38)
[2018-06-01] MEDS: Insulin Detemir 100 units/ml Vial (Levemir) SC SCH (09:39)
[2018-06-01] MEDS: Insulin Lispro (humaLOG) MEDIUM Coverage SC SCH (09:39)
[2018-06-01] MEDS: Enoxaparin 40 mg Syringe SC SCH (09:40)
[2018-06-01] MEDS: cefTRIAXone 1 gm 1 GM/100 ML BAG IVPB SCH ×2 (09:41→09:45)
[2018-06-01] MEDS: POLYETHYLENE GLYCOL 3350 17 GM/Dose PACKET PO SCH (09:41)
[2018-06-01 11:35] VITALS: PULSE 59
--- NOTE | 2018-06-01 12:43 | PN ---
Copied To: Marc Mayberry MD Attending MD: Marc Mayberry MD DATE: 06/01/2018 SUBJECTIVE: The patient is in bed, in no acute distress. She says her pain is much improved. PHYSICAL EXAMINATION: VITAL SIGNS: On exam, temperature is 98, blood pressure is 120/70, respiratory rate of 16. HEENT: Examination of HEENT is unremarkable. NECK: Supple. LUNGS: Have decreased breath sounds. HEART: Normal S1, S2. ABDOMEN: Soft, nontender. LABORATORY DATA: Review of laboratories reveals the cultures are positive for Klebsiella in the urine. The blood cultures are negative. ASSESSMENT AND PLAN: A 43-year-old female with morbid obesity with body mass index of 46, who is admitted now with diabetes and high cholesterol and the patient admitted with #1 is sepsis with Klebsiella pneumonia, right-sided pyelonephritis, negative blood cultures, urine cultures are positive for Klebsiella pneumoniae and the patient is doing much better. I did inform by nursing staff that the patient's IV access is a problem. We will switch to p.o. Cipro 500 mg p.o. b.i.d. for a total of 10-14 days. The patient's white count is also normalized to 7.8. Marc Mayberry MD
--- NOTE | 2018-06-01 13:32 | CP.PCM.DIS ---
<Adolfo Hensley - Last Filed: 06/01/18 13:54> Provider - Provider Date of Admission: 05/28/18 19:56 Attending physician: Jordan Baxter Primary care physician: Ernst Burger MD Consults: ID Dr Mayberry Urology Dr Garcia Time Spent in preparation of Discharge (in minutes): 45 Diagnosis - Discharge Diagnosis (1) Pyelonephritis Status: Acute Priority: High (2) Diabetes mellitus Status: Chronic Priority: Medium (3) Hyperlipemia Status: Chronic Priority: Medium Hospital Course - Lab Results Lab Results: Micro Results 05/28/18 21:32 Urine,Catheterized Urine Culture - Final No Growth (<1,000 CFU/ML) Most Recent Lab Values WBC 7.8 10^3/ul (4.5-11.0) D 05/31/18 06:30 RBC 3.64 10^6/uL (3.5-6.1) 05/31/18 06:30 Hgb 10.8 g/dL (12.0-16.0) L D 05/31/18 06:30 Hct 32.5 % (36.0-48.0) L 05/31/18 06:30 MCV 89.3 fl (80.0-105.0) 05/31/18 06:30 MCH 29.7 pg (25.0-35.0) 05/31/18 06:30 MCHC 33.2 g/dl (31.0-37.0) 05/31/18 06:30 RDW 13.3 % (11.5-14.5) 05/31/18 06:30 Plt Count 386 10^3/uL (120.0-450.0) 05/31/18 06:30 MPV 9.5 fl (7.0-11.0) 05/31/18 06:30 Gran % 81.0 % (50.0-68.0) H 05/28/18 16:07 Lymph % (Auto) 13.0 % (22.0-35.0) L 05/28/18 16:07 Allen % (Auto) 5.9 % (1.0-6.0) 05/28/18 16:07 Eos % (Auto) 0.0 % (1.5-5.0) L 05/28/18 16:07 Baso % (Auto) 0.1 % (0.0-3.0) 05/28/18 16:07 Gran # 13.71 (1.4-6.5) H 05/28/18 16:07 Lymph # (Auto) 2.2 (1.2-3.4) 05/28/18 16:07 Allen # (Auto) 1.0 (0.1-0.6) H 05/28/18 16:07 Eos # (Auto) 0.0 (0.0-0.7) 05/28/18 16:07 Baso # (Auto) 0.02 K/mm3 (0.0-2.0) 05/28/18 16:07 pCO2 33 mm/Hg (35-45) L 05/28/18 18:00 pO2 39 mm/Hg (30-55) 05/28/18 19:50 HCO3 25.1 mmol/L (21-28) 05/28/18 18:00 ABG pH 7.49 (7.35-7.45) H 05/28/18 18:00 ABG Total CO2 26.1 mmol.L (22-28) 05/28/18 18:00 ABG O2 Saturation 98.3 % (95-98) H 05/28/18 18:00 ABG O2 Content 13.6 ML/dl (15-23) L 05/28/18 18:00 ABG Base Excess 2.0 mmol/L (-2.0-3.0) 05/28/18 18:00 ABG Hemoglobin 10.1 g/dL (11.7-17.4) L 05/28/18 18:00 ABG Carboxyhemoglobin 2.3 % (0.5-1.5) H 05/28/18 18:00 POC ABG HHb (Measured) 1.6 % (0-5) 05/28/18 18:00 ABG Methemoglobin 0.9 % (0.0-3.0) 05/28/18 18:00 ABG O2 Capacity 13.8 mL/dl (16-24) L 05/28/18 18:00 VBG pH 7.44 (7.32-7.43) H 05/28/18 19:50 VBG pCO2 40.0 (40-60) 05/28/18 19:50 VBG HCO3 27.2 mmol/l (21-28) 05/28/18 19:50 VBG Total CO2 28.4 mmol.L (22-28) H 05/28/18 19:50 VBG O2 Sat (Calc) 77.8 % (40-65) H 05/28/18 19:50 VBG Base Excess 2.8 mmol/L (0.0-2.0) H 05/28/18 19:50 VBG Potassium 3.5 mmol/L (3.6-5.2) L 05/28/18 19:50 Hgb O2 Saturation 95.3 % (95.0-98.0) 05/28/18 18:00 Sodium 134.0 mmol/L (132-148) 05/28/18 19:50 Chloride 101.0 mmol/L (98-107) 05/28/18 19:50 Glucose 295 mg/dl (65-105) H 05/28/18 19:50 Lactate 1.2 mmol/L (0.7-2.1) 05/28/18 19:50 FiO2 21.0 % 05/28/18 19:50 Sodium 142 mmol/L (132-148) 06/01/18 06:00 Potassium 3.7 mmol/L (3.6-5.0) 06/01/18 06:00 Chloride 105 mmol/L (98-107) 06/01/18 06:00 Carbon Dioxide 27 mmol/L (21-33) 06/01/18 06:00 Anion Gap 14 (10-20) 06/01/18 06:00 BUN 5 mg/dL (7-21) L 06/01/18 06:00 Creatinine 0.6 mg/dl (0.7-1.2) L 06/01/18 06:00 Est GFR ( Amer) > 60 06/01/18 06:00 Est GFR (Non-Af Amer) > 60 06/01/18 06:00 POC Glucose (mg/dL) 132 mg/dL (65-110) H 06/01/18 12:10 Random Glucose 105 mg/dL (70-110) 06/01/18 06:00 Hemoglobin A1c 12.3 % (4.2-6.5) H D 05/29/18 06:30 Calcium 8.7 mg/dL (8.4-10.5) 06/01/18 06:00 Phosphorus 2.3 mg/dL (2.5-4.5) L 05/29/18 06:30 Magnesium 1.7 mg/dL (1.7-2.2) 05/29/18 06:30 Total Bilirubin 0.2 mg/dL (0.2-1.3) 06/01/18 06:00 AST 29 U/L (14-36) 06/01/18 06:00 ALT 14 U/L (7-56) 06/01/18 06:00 Alkaline Phosphatase 68 U/L (38-126) 06/01/18 06:00 Total Protein 7.0 g/dL (5.8-8.3) 06/01/18 06:00 Albumin 3.0 g/dL (3.0-4.8) 06/01/18 06:00 Globulin 3.9 gm/dL 06/01/18 06:00 Albumin/Globulin Ratio 0.8 (1.1-1.8) L 06/01/18 06:00 Lipase 43 U/L (23-300) 05/28/18 16:07 Procalcitonin 0.26 NG/ML (0.19-0.49) 05/29/18 07:00 Venous Blood Potassium 3.5 mmol/L (3.6-5.2) L 05/28/18 19:50 Urine Color Yellow (YELLOW) 05/28/18 21:32 Urine Appearance Clear (CLEAR) 05/28/18 21:32 Urine pH 6.5 (4.7-8.0) 05/28/18 21:32 Ur Specific [place] <= 1.005 (1.005-1.035) 05/28/18 21:32 Urine Protein 30 mg/dL (<30 mg/dL) H 05/28/18 21:32 Urine Glucose (UA) 500 mg/dL (NEGATIVE) H 05/28/18 21:32 Urine Ketones 15 mg/dL (NEGATIVE) H 05/28/18 21:32 Urine Blood Large (NEGATIVE) H 05/28/18 21:32 Urine Nitrate Positive (NEGATIVE) H 05/28/18 21:32 Urine Bilirubin Negative (NEGATIVE) 05/28/18 21:32 Urine Urobilinogen 0.2 E.U./dL (<1 E.U./dL) 05/28/18 21:32 Ur Leukocyte Esterase Negative Preston/uL (NEGATIVE) 05/28/18 21:32 Urine RBC 20 - 25 /hpf (0-2) 18 21:32 Urine WBC 2 - 5 /hpf (0-6) 05/28/18 21:32 Ur Epithelial Cells 6 - 8 /hpf (0-5) 05/28/18 21:32 Amorphous Sediment Trace 05/28/18 21:32 Urine Bacteria Trace (NEG) 05/28/18 21:32 - Hospital Course Hospital Course: Pt is a 43 yo female with a PMH of DM2, HLD, and obesity who presents to the ED on May 28, 2018 complaining of right sided abdominal pain which radiates to the back associated with weakness and dizziness which she stated began on May 17. She reported anorexia during this time due to loss of appetite. Pt stated she lost about 20 lbs in the past month. Pt denied nausea, vomiting, fever, or chills. Pt stated that position changes made the pain worse, she tried Midol, but it did not help her symptoms. Pt stated that her urine had been malodorous. On admission, pt related that she takes 36 units of insulin TID. This was converted to basal bolus insulin during her hospital stay for tighter glycemic control, and also combined with SSI. Pt admits she has not been using her insulin while at home and that her blood sugar has been elevated. During her stay pt required multiple attempts to reinsert a new IV. Pt was started on Cipro 500mg BID for 10 days upon discharge. Pt advised to follow up with her PMD after discharge. Pt advised to return to her local ED if symptoms worsen. - Date & Time of H&P Date of H&P: 06/01/18 Time of H&P: 13:00 Discharge Exam - Head Exam Head Exam: ATRAUMATIC, NORMAL INSPECTION, NORMOCEPHALIC - Eye Exam Eye Exam: EOMI - ENT Exam ENT Exam: Mucous Membranes Moist - Neck Exam Neck exam: Full Rom - Respiratory Exam Respiratory Exam: NORMAL BREATHING PATTERN, UNREMARKABLE. absent: Accessory Muscle Use, Wheezes, Respiratory Distress, Stridor - Cardiovascular Exam Cardiovascular Exam: REGULAR RHYTHM, RRR, +S1, +S2. absent: Diastolic murmur, Irregular Rhythm, JVD, Systolic Murmur - GI/Abdominal Exam GI & Abdominal Exam: Normal Bowel Sounds, Soft, Unremarkable. absent: Distended , Firm, Guarding, Rebound, Rigid, Tenderness - Extremities Exam Extremities exam: full ROM, pedal pulses present - Back Exam Back exam: FULL ROM, NORMAL INSPECTION. absent: CVA tenderness (L), CVA tenderness (R) - Neurological Exam Neurological exam: Alert, Normal Gait, Oriented x3 - Psychiatric Exam Psychiatric exam: Normal Affect, Normal Mood - Skin Skin Exam: Dry, Normal Color, Warm Discharge Plan - Discharge Medications Prescriptions: Ciprofloxacin [Cipro] 500 mg PO BID #20 tab - Follow Up Plan Condition: GOOD Disposition: HOME/ ROUTINE Instructions: Kidney Infection, Urinary Tract Infection in Women (DC), Urinary Tract Infection in Men (DC), Dysuria (GEN) Additional Instructions: 1.Please follow up with Dr. Burger regarding this admission. 2.Please take your antibiotic ciprofloxacin 500 mg BID for ten further days 3.Take tylenol and motrin as needed for pain control. 4.Follow up with urology as outpatient regarding your kidney stone. 5.If symptoms return or worsen please go to your nearest emergency department. Referrals: Ernst Burger MD [Primary Care Provider] - <[email or web address] - Last Filed: 06/01/18 15:51> Provider - Provider Date of Admission: 05/28/18 19:56 Attending physician: Jordan Baxter Primary care physician: Ernst Burger MD Hospital Course - Lab Results Lab Results: Micro Results 05/28/18 21:32 Urine,Catheterized Urine Culture - Final No Growth (<1,000 CFU/ML) Most Recent Lab Values WBC 7.8 10^3/ul (4.5-11.0) D 05/31/18 06:30 RBC 3.64 10^6/uL (3.5-6.1) 05/31/18 06:30 Hgb 10.8 g/dL (12.0-16.0) L D 05/31/18 06:30 Hct 32.5 % (36.0-48.0) L 05/31/18 06:30 MCV 89.3 fl (80.0-105.0) 05/31/18 06:30 MCH 29.7 pg (25.0-35.0) 05/31/18 06:30 MCHC 33.2 g/dl (31.0-37.0) 05/31/18 06:30 RDW 13.3 % (11.5-14.5) 05/31/18 06:30 Plt Count 386 10^3/uL (120.0-450.0) 05/31/18 06:30 MPV 9.5 fl (7.0-11.0) 05/31/18 06:30 Gran % 81.0 % (50.0-68.0) H 05/28/18 16:07 Lymph % (Auto) 13.0 % (22.0-35.0) L 05/28/18 16:07 Allen % (Auto) 5.9 % (1.0-6.0) 05/28/18 16:07 Eos % (Auto) 0.0 % (1.5-5.0) L 05/28/18 16:07 Baso % (Auto) 0.1 % (0.0-3.0) 05/28/18 16:07 Gran # 13.71 (1.4-6.5) H 05/28/18 16:07 Lymph # (Auto) 2.2 (1.2-3.4) 05/28/18 16:07 Allen # (Auto) 1.0 (0.1-0.6) H 05/28/18 16:07 Eos # (Auto) 0.0 (0.0-0.7) 05/28/18 16:07 Baso # (Auto) 0.02 K/mm3 (0.0-2.0) 05/28/18 16:07 pCO2 33 mm/Hg (35-45) L 05/28/18 18:00 pO2 39 mm/Hg (30-55) 05/28/18 19:50 HCO3 25.1 mmol/L (21-28) 05/28/18 18:00 ABG pH 7.49 (7.35-7.45) H 05/28/18 18:00 ABG Total CO2 26.1 mmol.L (22-28) 05/28/18 18:00 ABG O2 Saturation 98.3 % (95-98) H 05/28/18 18:00 ABG O2 Content 13.6 ML/dl (15-23) L 05/28/18 18:00 ABG Base Excess 2.0 mmol/L (-2.0-3.0) 05/28/18 18:00 ABG Hemoglobin 10.1 g/dL (11.7-17.4) L 05/28/18 18:00 ABG Carboxyhemoglobin 2.3 % (0.5-1.5) H 05/28/18 18:00 POC ABG HHb (Measured) 1.6 % (0-5) 05/28/18 18:00 ABG Methemoglobin 0.9 % (0.0-3.0) 05/28/18 18:00 ABG O2 Capacity 13.8 mL/dl (16-24) L 05/28/18 18:00 VBG pH 7.44 (7.32-7.43) H 05/28/18 19:50 VBG pCO2 40.0 (40-60) 05/28/18 19:50 VBG HCO3 27.2 mmol/l (21-28) 05/28/18 19:50 VBG Total CO2 28.4 mmol.L (22-28) H 05/28/18 19:50 VBG O2 Sat (Calc) 77.8 % (40-65) H 05/28/18 19:50 VBG Base Excess 2.8 mmol/L (0.0-2.0) H 05/28/18 19:50 VBG Potassium 3.5 mmol/L (3.6-5.2) L 05/28/18 19:50 Hgb O2 Saturation 95.3 % (95.0-98.0) 05/28/18 18:00 Sodium 134.0 mmol/L (132-148) 05/28/18 19:50 Chloride 101.0 mmol/L (98-107) 05/28/18 19:50 Glucose 295 mg/dl (65-105) H 05/28/18 19:50 Lactate 1.2 mmol/L (0.7-2.1) 05/28/18 19:50 FiO2 21.0 % 05/28/18 19:50 Sodium 142 mmol/L (132-148) 06/01/18 06:00 Potassium 3.7 mmol/L (3.6-5.0) 06/01/18 06:00 Chloride 105 mmol/L (98-107) 06/01/18 06:00 Carbon Dioxide 27 mmol/L (21-33) 06/01/18 06:00 Anion Gap 14 (10-20) 06/01/18 06:00 BUN 5 mg/dL (7-21) L 06/01/18 06:00 Creatinine 0.6 mg/dl (0.7-1.2) L 06/01/18 06:00 Est GFR ( Amer) > 60 06/01/18 06:00 Est GFR (Non-Af Amer) > 60 06/01/18 06:00 POC Glucose (mg/dL) 132 mg/dL (65-110) H 06/01/18 12:10 Random Glucose 105 mg/dL (70-110) 06/01/18 06:00 Hemoglobin A1c 12.3 % (4.2-6.5) H D 05/29/18 06:30 Calcium 8.7 mg/dL (8.4-10.5) 06/01/18 06:00 Phosphorus 2.3 mg/dL (2.5-4.5) L 05/29/18 06:30 Magnesium 1.7 mg/dL (1.7-2.2) 05/29/18 06:30 Total Bilirubin 0.2 mg/dL (0.2-1.3) 06/01/18 06:00 AST 29 U/L (14-36) 06/01/18 06:00 ALT 14 U/L (7-56) 06/01/18 06:00 Alkaline Phosphatase 68 U/L (38-126) 06/01/18 06:00 Total Protein 7.0 g/dL (5.8-8.3) 06/01/18 06:00 Albumin 3.0 g/dL (3.0-4.8) 06/01/18 06:00 Globulin 3.9 gm/dL 06/01/18 06:00 Albumin/Globulin Ratio 0.8 (1.1-1.8) L 06/01/18 06:00 Lipase 43 U/L (23-300) 05/28/18 16:07 Procalcitonin 0.26 NG/ML (0.19-0.49) 05/29/18 07:00 Venous Blood Potassium 3.5 mmol/L (3.6-5.2) L 05/28/18 19:50 Urine Color Yellow (YELLOW) 05/28/18 21:32 Urine Appearance Clear (CLEAR) 05/28/18 21:32 Urine pH 6.5 (4.7-8.0) 05/28/18 21:32 Ur Specific [place] <= 1.005 (1.005-1.035) 05/28/18 21:32 Urine Protein 30 mg/dL (<30 mg/dL) H 05/28/18 21:32 Urine Glucose (UA) 500 mg/dL (NEGATIVE) H 05/28/18 21:32 Urine Ketones 15 mg/dL (NEGATIVE) H 05/28/18 21:32 Urine Blood Large (NEGATIVE) H 05/28/18 21:32 Urine Nitrate Positive (NEGATIVE) H 05/28/18 21:32 Urine Bilirubin Negative (NEGATIVE) 05/28/18 21:32 Urine Urobilinogen 0.2 E.U./dL (<1 E.U./dL) 05/28/18 21:32 Ur Leukocyte Esterase Negative [place]/uL (NEGATIVE) 05/28/18 21:32 Urine RBC 20 - 25 /hpf (0-2) 05/28/18 21:32 Urine WBC 2 - 5 /hpf (0-6) 05/28/18 21:32 Ur Epithelial Cells 6 - 8 /hpf (0-5) 05/28/18 21:32 Amorphous Sediment Trace 05/28/18 21:32 Urine Bacteria Trace (NEG) 05/28/18 21:32 Attending/Attestation - Attestation I have personally seen and examined this patient.: Yes I have fully participated in the care of the patient.: Yes I have reviewed all pertinent clinical information, including history, physical exam and plan: Yes Notes (Text): 06/01/18 15:49 Medical record note made by the resident after discussion with my direction and input after the patient was personally seen and examined by me. I have reviewed the chart and agree that the record accurately reflects by personal performance of the history, physical exam, data review, and medical decision-making, in the course for the patient. I have also personally directed the plan of care. Patient is feeling better.She is afebrile, there is no Nausea or vomiting.Blood cultures are negative for any growth. Patient will be discharged home on oral ciprofloxacin and will follow up with PCP and Urology as an out patient. Management plan was discussed in detail with patient. Education was provided.
== END 2018-06-01 14:12 | disposition home or self-care (01) | DRG 690 ==
LOC: ED 13:29 → ERH 19:56 → 3RNO 21:49
PROVIDERS: ADMIT Hospitalist; ATTEND Internal Medicine
DX: N10 Acute pyelonephritis (principal); Z68.42 Body mass index [BMI] 45.0-49.9, adult; B96.1 Klebsiella pneumoniae [K. pneumoniae] as the cause of diseases classified elsewhere; E11.65 Type 2 diabetes mellitus with hyperglycemia; N20.0 Calculus of kidney; E78.5 Hyperlipidemia, unspecified; E78.00 Pure hypercholesterolemia, unspecified; E66.01 Morbid (severe) obesity due to excess calories

== ENCOUNTER 2018-10-24 14:20 | Outpatient (CLI) | payer MEDICARE, OTHER | END 2018-10-24 14:21 | disposition home or self-care (01) | LOC: RAD 14:20 ==

== ENCOUNTER 2018-10-30 20:11 | Inpatient (IN) | payer MEDICARE, OTHER ==
[2018-10-30 21:31] LABS: ALBUMIN 4.2 g/dL (3.0-4.8); BLOOD UREA NITROGEN 12 mg/dL (7-21); CALCIUM 9.6 mg/dL (8.4-10.5); GFR NON-AFRICAN AMERICAN > 60
[2018-10-30 21:32] LABS: HEMOGLOBIN 12.7 g/dL (12.0-16.0); MEAN CELL VOLUME 92.7 fl (80.0-105.0); MEAN CORPUSCULAR HGB CONC 32.4 g/dl (31.0-37.0); MEAN PLATELET VOLUME 10.6 fl (7.0-11.0); RBC 4.23 10^6/uL (3.5-6.1); RED CELL DISTRIBUTION WIDTH 13.6 % (11.5-14.5); WHITE BLOOD COUNT 8.8 10^3/uL (4.5-11.0)
--- NOTE | 2018-10-30 21:32 | ED PDOC ---
Arrival/HPI - General Chief Complaint: Chest Pain Time Seen by Provider: 10/30/18 20:13 Historian: Patient - History of Present Illness Narrative History of Present Illness (Text): 10/30/18 20:40 43 year old female, whose past medical history includes diabetes, hyperlipidemia, obesity, presents to the emergency department complaining of intermittent chest palpitations associated with chest discomfort. Patient states the symptoms began earlier today and persisted throughout the day. Patient denies any fever, chills, shortness of breath, nausea, vomiting, diarrhea, urinary symptoms, leg pain, back pain, neck pain, headache, dizziness, or any other complaints. PMD: Dr. Burger Time/Duration: Other (earleir today) Symptom Onset: Gradual Symptom Course: Unchanged Activities at Onset: Light Context: Home Past Medical History - Provider Review Nursing Documentation Reviewed: Yes - Infectious Disease Hx of Infectious Diseases: None - Tetanus Immunization Tetanus Immunization: Unknown - Reproductive Currently : No - Cardiac Hx Cardiac Disorders: Yes - Pulmonary Hx Respiratory Disorders: No - Neurological Hx Neurological Disorder: No - HEENT Hx HEENT Disorder: No - Renal Hx Renal Disorder: No - Endocrine/Metabolic Hx Endocrine Disorders: Yes Hx Diabetes Mellitus Type 2: Yes - Hematological/Oncological Hx Blood Disorders: Yes Hx Anemia: Yes - Integumentary Hx Dermatological Disorder: No Hx Basal Cell Carcinoma: No - Musculoskeletal/Rheumatological Hx Musculoskeletal Disorders: Yes Hx Falls: Yes - Gastrointestinal Hx Gastrointestinal Disorders: No - Genitourinary/Gynecological Hx Genitourinary Disorders: No - Psychiatric Hx Psychophysiologic Disorder: No Hx Substance Use: No - Anesthesia Hx Anesthesia: No - Suicidal Assessment Feels Threatened In Home Enviroment: No Family/Social History - Physician Review Nursing Documentation Reviewed: Yes Family/Social History: No Known Family HX Smoking Status: Never Smoked Hx Alcohol Use: No Hx Substance Use: No Hx Substance Use Treatment: No Allergies/Home Meds Allergies/Adverse Reactions: Allergies No Known Drug Allergies Allergy (Verified 05/28/18 17:41) shrimp Adverse Reaction (Severe, Uncoded 05/28/18 13:49) ANAPHYLAXIS Home Medications: Home Meds Medication Instructions Recorded Confirmed RX: Rosuvastatin Calcium [Crestor] 10 mg PO DAILY 05/28/18 10/31/18 Insulin Aspart Prot/Insuln Asp 10/31/18 [Novolog Mix 70-30 Vial] RX: Ferrous Sulfate [Feosol] 325 mg PO DAILY 10/31/18 10/31/18 Review of Systems - Physician Review All systems were reviewed & negative as marked: Yes - Review of Systems Constitutional: absent: Fevers, Other (chills) Respiratory: absent: SOB Cardiovascular: Chest Pain, Palpitations Gastrointestinal: absent: Diarrhea, Nausea, Vomiting Genitourinary Female: absent: Dysuria, Frequency, Hematuria Musculoskeletal: absent: Back Pain, Neck Pain, Other (leg pain) Neurological: absent: Headache, Dizziness Physical Exam Vital Signs Reviewed: Yes Vital Signs Temp Pulse Resp BP Pulse Ox 10/30/18 20:30 98.5 F 88 18 112/54 L 100 Temperature: Afebrile Blood Pressure: Normal Pulse: Regular Respiratory Rate: Normal Appearance: Positive for: Well-Appearing, Non-Toxic, Comfortable Pain Distress: None Mental Status: Positive for: Alert and Oriented X 3 - Systems Exam Head: Present: Atraumatic, Normocephalic Pupils: Present: PERRL Extroacular Muscles: Present: EOMI Conjunctiva: Present: Normal Mouth: Present: Moist Mucous Membranes Neck: Present: Normal Range of Motion Respiratory/Chest: Present: Clear to Auscultation, Good Air Exchange. No: Respiratory Distress, Accessory Muscle Use Cardiovascular: Present: Regular Rate and Rhythm, Normal S1, S2. No: Murmurs Abdomen: No: Tenderness, Distention, Peritoneal Signs Back: Present: Normal Inspection Upper Extremity: Present: Normal Inspection. No: Cyanosis, Edema Lower Extremity: Present: Normal Inspection. No: Edema Neurological: Present: GCS=15, CN II-XII Intact, Speech Normal Skin: Present: Warm, Dry, Normal Color. No: Rashes Psychiatric: Present: Alert, Oriented x 3, Normal Insight, Normal Concentration Medical Decision Making ED Course and Treatment: 10/30/18 20:45 Impression: 43 year old female presents complaining of intermittent chest palpitations associated with chest discomfort that began earlier today. Plan: -- EKG -- Labs -- Chest X-ray -- Reassess and disposition Prior Visits: Notes and results from previous visits were reviewed. Progress Notes: 10/30/18 20:40 EKG shows NSR at 86 BPM with LVH, non-specific ST/T changes. Interpreted by me. 10/31/18 00:00 CXR Impression: As read by me, no acute process. 10/31/18 00:06 Case discussed with medical reimbursement manager and Dr. Tristen yang who is aware and agrees with the plan. Accepts patient into hospitalist service. - Lab Interpretations I have reviewed the lab results: Yes - RAD Interpretation Radiology Orders: 10/30/18 20:59 CHEST PORTABLE [RAD] Stat Human Relations Teacher: ED Physician - EKG Interpretation Interpreted by ED Physician: Yes Type: 12 lead EKG - Scribe Statement The provider has reviewed the documentation as recorded by the Marianna Mccall Provider Scribe Attestation: All medical record entries made by the Marianna were at my direction and personally dictated by me. I have reviewed the chart and agree that the record accurately reflects my personal performance of the history, physical exam, medical decision making, and the department course for this patient. I have also personally directed, reviewed, and agree with the discharge instructions and disposition. Disposition/Present on Arrival - Present on Arrival Any Indicators Present on Arrival: No History of DVT/PE: No History of Uncontrolled Diabetes: Yes Urinary Catheter: No History of Decub. Ulcer: No History Surgical Site Infection Following: None - Disposition Have Diagnosis and Disposition been Completed?: Yes Diagnosis: Chest pain, Palpitations Disposition: HOSPITALIZED Disposition Time: 00:06 Patient Plan: Observation Patient Problems: Current Active Problems Problem Status Onset Chest pain Acute Palpitations Acute Condition: STABLE
[2018-10-30 21:36] LABS: INR 1.11; PARTIAL THROMBOPLASTIN TIME 31.7 Seconds (26.9-38.3); PROTHROMBIN TIME 12.3 SECONDS (9.4-12.5)
[2018-10-30 21:44] LABS: TROPONIN I < 0.01 ng/mL
[2018-10-30 21:49] LABS: ALT/SGPT 26 U/L (7-56); AST/SGOT 33 U/L (14-36)
--- NOTE | 2018-10-31 00:16 | CP.PCM.HP ---
History of Present Illness - History of Present Illness History of Present Illness: Ruel Duong, PGY1 H&P for Dr. Castillo cc: "intermittent palpitations with chest pain" Patient is a 43 year old female whose PMHx includes DM, Morbid Obesity, HLD, Nephrolithiasis, Anemia who presented to the ED for intermittent palpitations with chest pain. In the ED, Vitals: Temp 98.5, HR 88, RR 18, BP 112/54, SaO2 100%. Medical team was consulted for evaluation. Patient said she had these symptoms only today. Both the chest pain and palpitations occurred at rest. Chest pain is located at the middle-right side of the chest. She said it lasted for a few hours. Chest pain was described as pressure-like. She endorses heavy menses which has been going on for quite some time. She also has a recent 10 pound weight gain. Denies sob, abdominal pain, n/v/d, urinary frequency/urgency/dysuria, cough, fevers, chills. No sick contacts or travel history. She has had a prior admission for the same complaint. Last visit to [facility] was for nephrolithiasis. She denies contraceptive use. No recent surgery, immobility, or cancer history. A full 12 point ROS was conducted and unremarkable except as stated above. PMD: Dr. Burger PMHx: DM, Morbid Obesity, HLD , Nephrolithiasis, Anemia PSHx: denies Meds: Novolog 70/30 TID , Crestor 10mg daily, Ferrous sulfate 325mg PO daily Allergies: NKDA FamHx: mother has DM SocialHx: denies smoking, EtOH, and recreational drug use. Lives in [place]. Present on Admission - Present on Admission Any Indicators Present on Admission: Yes History of Uncontrolled Diabetes: Yes Review of Systems - Review of Systems All systems: reviewed and no additional remarkable complaints except (as per HPI.) Past Patient History - Infectious Disease Hx of Infectious Diseases: None - Tetanus Immunizations Tetanus Immunization: Unknown - Past Social History Smoking Status: Never Smoked - CARDIAC Hx Cardiac Disorders: Yes - PULMONARY Hx Respiratory Disorders: No - NEUROLOGICAL Hx Neurological Disorder: No - HEENT Hx HEENT Problems: No - RENAL Hx Chronic Kidney Disease: No - ENDOCRINE/METABOLIC Hx Endocrine Disorders: Yes Hx Diabetes Mellitus Type 2: Yes - HEMATOLOGICAL/ONCOLOGICAL Hx Blood Disorders: Yes Hx Anemia: Yes - INTEGUMENTARY Hx Dermatological Problems: No Hx Basil Cell: No - MUSCULOSKELETAL/RHEUMATOLOGICAL Hx Musculoskeletal Disorders: Yes Hx Falls: Yes - GASTROINTESTINAL Hx Gastrointestinal Disorders: No - GENITOURINARY/GYNECOLOGICAL Hx Genitourinary Disorders: No - PSYCHIATRIC Hx Psychophysiologic Disorder: No Hx Substance Use: No - SURGICAL HISTORY Hx Surgeries: No - ANESTHESIA Hx Anesthesia: No Meds Allergies/Adverse Reactions: Allergies Allergy/AdvReac Type Severity Reaction Status Date / Time No Known Drug Allergies Allergy Verified 05/28/18 17:41 shrimp AdvReac Severe ANAPHYLAXIS Uncoded 05/28/18 13:49 Physical Exam - Constitutional Appears: No Acute Distress - Head Exam Head Exam: ATRAUMATIC, NORMAL INSPECTION, NORMOCEPHALIC - Eye Exam Eye Exam: EOMI, Normal appearance Pupil Exam: NORMAL ACCOMODATION - ENT Exam ENT Exam: Mucous Membranes Moist - Respiratory Exam Respiratory Exam: Clear to Auscultation Bilateral, NORMAL BREATHING PATTERN. absent: Chest Wall Tenderness, Rales, Rhonchi, Wheezes - Cardiovascular Exam Cardiovascular Exam: Tachycardia, +S1, +S2 - GI/Abdominal Exam GI & Abdominal Exam: Normal Bowel Sounds, Soft. absent: Firm, Guarding, Pulsatile Mass, Rebound, Rigid, Tenderness Additional comments: Obese abdomen - Extremities Exam Extremities exam: Positive for: normal capillary refill, normal inspection, pedal pulses present. Negative for: calf tenderness, joint swelling, pedal edema, tenderness Additional comments: Negative Yannick sign. - Back Exam Back exam: NORMAL INSPECTION - Neurological Exam Neurological exam: Alert, CN II-XII Intact, Normal Gait, Oriented x3, Reflexes Normal - Psychiatric Exam Psychiatric exam: Normal Affect, Normal Mood - Skin Skin Exam: Dry, Intact, Normal Color, Warm Results - Vital Signs Recent Vital Signs: Last Vital Signs Temp 98.5 F 10/30/18 20:30 Pulse 88 10/30/18 20:30 Resp 18 10/30/18 20:30 BP 112/54 L 10/30/18 20:30 Pulse Ox 100 10/30/18 20:30 - Labs Result Diagrams: 10/30/18 21:16 10/30/18 21:16 Labs: Laboratory Results - last 24 hr 10/30/18 10/30/18 10/30/18 21:16 21:16 21:16 WBC 8.8 RBC 4.23 Hgb 12.7 Hct 39.2 MCV 92.7 D MCH 30.0 MCHC 32.4 RDW 13.6 Plt Count 319 MPV 10.6 PT 12.3 INR 1.11 APTT 31.7 Sodium 139 Potassium 4.1 Chloride 106 Carbon Dioxide 25 Anion Gap 12 BUN 12 Creatinine 0.6 L Est GFR ( Amer) > 60 Est GFR (Non-Af Amer) > 60 Random Glucose 101 Calcium 9.6 Total Bilirubin 0.4 AST 33 ALT 26 Alkaline Phosphatase 64 Lactate Dehydrogenase 659 Total Creatine Kinase 245 H CK-MB (CK-2) 1.0 CK-MB (CK-2) % Cancelled Troponin I < 0.01 Total Protein 8.6 H Albumin 4.2 Globulin 4.4 Albumin/Globulin Ratio 1.0 L Assessment & Plan - Assessment and Plan (Free Text) Assessment: Patient is a 43 year old female whose PMHx includes DM, Morbid Obesity, HLD, Nephrolithiasis, Anemia who presented to the ED for intermittent palpitations with chest pain. Patient will be admitted for Chest Pain and Palpitations - r/o ACS. Plan: Chest Pain and Palpitations - r/o ACS - trend trops; initial trop negative x1 - ASA 81mg daily - TSH and T4 - r/o thyroid disease given palpitations and recent weight gain - Hgb A1c - Lipid Panel - Urine drug screen - Cardio on consult (Dr. Jules) - CXR: no active cardiopulmonary disease - EKG: NSR at 86 bpm with LVH. No acute ST or T wave changes. Hx DM (on insulin) - uncontrolled - Hgb A1c ordered - ISS (low) - Accuchecks ACHS - Last Hgb A1c was 12.3; not compliant with insulin meds Hx HLD - Lipitor 20mg - Lipid panel ordered Morbid Obesity - counseled on diet and exercise Hx Anemia - Hgb stable at this time DVT ppx: Hep sc GI ppx: pepcid PO Diet: CCD Dispo: monitor patient on telemetry. Case was discussed and reviewed with Attending Physician, Dr. Castillo
[2018-10-31 04:29] LABS: TROPONIN I < 0.01 ng/mL
[2018-10-31 04:32] LABS: FREE T4 1.22 ng/dL (0.78-2.19)
[2018-10-31 04:37] LABS: HDL CHOLESTEROL 47 mg/dL (29-60); LDL CHOLESTEROL 64 mg/dL (0-129)
[2018-10-31 04:39] VITALS: BMI 51.6
[2018-10-31 06:27] VITALS: RESP 18
[2018-10-31] MEDS: Insulin Lispro (humaLOG) LOW Coverage SC SCH ×4 (08:08→22:24)
--- NOTE | 2018-10-31 10:23 | RAD ---
Date of service: 10/30/2018 HISTORY: chest pain COMPARISON: Comparison chest 05/22/2017 FINDINGS: LUNGS: Poor inspiration with low lung volumes, crowded bronchovascular markings and mild bibasilar atelectasis. PLEURA: No significant pleural effusion identified, no pneumothorax apparent. CARDIOVASCULAR: No aortic atherosclerotic calcification present. Normal cardiac size. No pulmonary vascular congestion. OSSEOUS STRUCTURES: No significant abnormalities. VISUALIZED UPPER ABDOMEN: Normal. OTHER FINDINGS: None. IMPRESSION: Poor inspiration with low lung volumes, crowded bronchovascular markings and mild bibasilar atelectasis.
--- NOTE | 2018-10-31 21:27 | CARD ---
APPROVED REPORT Date of service: 10/30/2018 EKG Measurement Heart [id number] <Conclusion> Normal sinus rhythm Moderate voltage criteria for LVH, may be normal variant Borderline ECG
[2018-11-01 02:02] LABS: PH,URINE 5.5 (4.7-8.0); URINE BILIRUBIN NEGATIVE (NEGATIVE); URINE BLOOD LARGE (NEGATIVE); URINE GLUCOSE (UA) >=1000 mg/dL (NEGATIVE); URINE LEUKOCYTE ESTERASE TRACE Leu/uL (NEGATIVE); URINE PROTEIN 100 mg/dL (<30 mg/dL)
[2018-11-01 02:06] LABS: URINE APPEARANCE BLOODY (CLEAR); URINE COLOR RED (YELLOW)
[2018-11-01 02:22] LABS: URINE BACTERIA FEW /hpf; URINE EPITHELIAL CELLS 0 - 2 /hpf (0-5); URINE RBC TNTC /hpf (0-2)
[2018-11-01 07:03] LABS: BASO # 0.02 K/mm3 (0.0-2.0); BASO % 0.4 % (0.0-3.0); EOS # 0.1 (0.0-0.7); EOS % 1.9 % (1.5-5.0); HEMOGLOBIN 11.4 g/dL (12.0-16.0); LYMPH # 2.2 (1.2-3.4); MEAN CELL VOLUME 93.2 fl (80.0-105.0); MEAN CORPUSCULAR HGB CONC 32.2 g/dl (31.0-37.0); MEAN PLATELET VOLUME 10.8 fl (7.0-11.0); MONO # 0.3 (0.1-0.6); MONO % 6.4 % (1.0-6.0); RBC 3.8 10^6/uL (3.5-6.1); RED CELL DISTRIBUTION WIDTH 13.6 % (11.5-14.5); WHITE BLOOD COUNT 4.7 10^3/uL (4.5-11.0)
[2018-11-01 07:44] LABS: ALB/GLOB RATIO 0.9 (1.1-1.8); ALBUMIN 3.6 g/dL (3.0-4.8); ALT/SGPT 27 U/L (7-56); AST/SGOT 24 U/L (14-36); BLOOD UREA NITROGEN 10 mg/dL (7-21); CALCIUM 8.9 mg/dL (8.4-10.5); GFR NON-AFRICAN AMERICAN > 60
[2018-11-01] MEDS ORDERED: Magnesium Sulfate 2 gm/50 ml 2 GM/50 ML BAG IVPB ONE (08:04)
[2018-11-01] MEDS: Insulin Lispro (humaLOG) LOW Coverage SC SCH ×4 (08:57→21:57)
--- NOTE | 2018-11-01 12:53 | CP.PCM.PN ---
<Robert Longoria - Last Filed: 11/01/18 15:10> Subjective - Date & Time of Evaluation Date of Evaluation: 11/01/18 Time of Evaluation: 08:00 - Subjective Subjective: Patient seen and examined at bedside in no acute distress. Patient states she normally has chest pain when she has her period and that this is not a new symptom. State she no longer has chest pain. Objective - Vital Signs/Intake and Output Vital Signs (last 24 hours): Temp Pulse Resp BP Pulse Ox 97.8 F 76 18 91/50 L 99 11/01/18 06:00 11/01/18 06:00 11/01/18 06:00 11/01/18 06:00 11/01/18 06:00 Intake and Output: 11/01/18 11/01/18 06:59 18:59 Intake Total 1140 100 Output Total 300 Balance 840 100 - Medications Medications: Current Medications Acetaminophen (Tylenol 325mg Tab) 650 mg PO Q6H PRN PRN Reason: Pain, Mild (1-3) Last Admin: 10/31/18 18:08 Dose: 650 mg Aspirin (Aspirin Chewable) 81 mg PO DAILY [facility] Last Admin: 11/01/18 09:09 Dose: 81 mg Atorvastatin Calcium (Lipitor) 20 mg PO DIN [facility] Last Admin: 10/31/18 17:37 Dose: 20 mg Famotidine (Pepcid) 40 mg PO HS [facility] Last Admin: 10/31/18 22:28 Dose: 40 mg Heparin Sodium (Porcine) (Heparin) 5,000 units SC Q8 [facility]; Protocol Last Admin: 11/01/18 05:33 Dose: 5,000 units Insulin Human Lispro (Humalog Low) 0 units SC ACHS [facility]; Protocol Last Admin: 11/01/18 12:24 Dose: 5 units Insulin Lispro Protam/Lispro Human (Humalog Mix 75/25) 17 units SC AC [facility] - Labs Labs: 11/01/18 05:00 11/01/18 05:00 PT 12.3 SECONDS (9.4-12.5) 10/30/18 21:16 INR 1.11 10/30/18 21:16 APTT 31.7 Seconds (26.9-38.3) 10/30/18 21:16 - Constitutional Appears: Non-toxic - Head Exam Head Exam: ATRAUMATIC - Eye Exam Eye Exam: Normal appearance - ENT Exam ENT Exam: Mucous Membranes Moist - Respiratory Exam Respiratory Exam: Clear to Ausculation Bilateral, NORMAL BREATHING PATTERN. absent: Rhonchi, Wheezes - Cardiovascular Exam Cardiovascular Exam: REGULAR RHYTHM, +S1, +S2 - GI/Abdominal Exam GI & Abdominal Exam: Soft, Normal Bowel Sounds - Extremities Exam Extremities Exam: Normal Inspection - Back Exam Back Exam: NORMAL INSPECTION - Neurological Exam Neurological Exam: Alert, Awake, Oriented x3 - Psychiatric Exam Psychiatric exam: Normal Affect, Normal Mood - Skin Skin Exam: Normal Color, Warm Assessment and Plan - Assessment and Plan (Free Text) Assessment: Patient is a 43 year old female whose PMHx includes DM, Morbid Obesity, HLD, Nephrolithiasis, Anemia who presented to the ED for intermittent palpitations with chest pain. Patient was admitted for Chest Pain and Palpitations - r/o ACS. Plan: Chest Pain and Palpitations - r/o ACS - Trop negative x3 - Continue aspirin 81mg daily - TSH and T4 - within normal limits - Hgb A1c 10.3 - Lipid Panel reveals no abnormalities - Cardio consulted - CXR: no active cardiopulmonary disease - Patient is to have cardiac stress testing tomorrow morning Hx DM (on insulin) - uncontrolled - Hgb A1c 10.3 - ISS (low), Patient at home takes Novolog 70/30 35 units AC (Verified with pharmacy). Will start patient on 10 units AC and hold tonight's dose since she is NPO - Accuchecks ACHS -rn diabetes educator Hx HLD - Lipitor 20mg - Lipid panel within normal limited Morbid Obesity - counseled on diet and exercise Hx Anemia - H/H stable DVT ppx: Hep sc GI ppx: pepcid PO Diet: CCD Case was discussed and reviewed with Attending Physician, Dr. Booth <Keri Booth R - Last Filed: 11/02/18 20:01> Objective - Vital Signs/Intake and Output Vital Signs (last 24 hours): Temp Pulse Resp BP Pulse Ox 98.6 F 82 18 108/60 100 11/02/18 06:00 11/02/18 10:42 11/02/18 06:00 11/02/18 10:42 11/02/18 06:00 - Medications Medications: Current Medications Acetaminophen (Tylenol 325mg Tab) 650 mg PO Q6H PRN PRN Reason: Pain, Mild (1-3) Last Admin: 10/31/18 18:08 Dose: 650 mg Aspirin (Aspirin Chewable) 81 mg PO DAILY [facility] Last Admin: 11/02/18 11:30 Dose: 81 mg Atorvastatin Calcium (Lipitor) 20 mg PO DIN [facility] Last Admin: 11/02/18 17:23 Dose: 20 mg Dextrose (Dextrose 50% Inj) 0 ml IV STAT PRN; Protocol PRN Reason: Hypoglycemia Protocol Famotidine (Pepcid) 40 mg PO HS [facility] Last Admin: 11/01/18 22:08 Dose: 40 mg Heparin Sodium (Porcine) (Heparin) 5,000 units SC Q8 [facility]; Protocol Last Admin: 11/02/18 14:23 Dose: 5,000 units Dextrose (Dextrose 5% In Water 1000 Ml) 1,000 mls @ 0 mls/hr IV .Q0M PRN; Protocol PRN Reason: Hypoglycemia Protocol Insulin Human Lispro (Humalog Low) 0 units SC ACHS [facility]; Protocol Last Admin: 11/02/18 17:23 Dose: 3 units Insulin Lispro Protam/Lispro Human (Humalog Mix 75/25) 10 units SC AC [facility] Last Admin: 11/01/18 16:50 Dose: 10 units - Labs Labs: 11/02/18 06:20 11/02/18 06:20 PT 12.3 SECONDS (9.4-12.5) 10/30/18 21:16 INR 1.11 10/30/18 21:16 APTT 31.7 Seconds (26.9-38.3) 10/30/18 21:16 Attending/Attestation - Attestation I have personally seen and examined this patient.: Yes I have fully participated in the care of the patient.: Yes I have reviewed all pertinent clinical information, including history, physical exam and plan: Yes Notes (Text): Patient seen and examined by me with resident at 8:40AM on 11/01/18. Case including HPI, physical exam, and assessment and plan discussed with resident. Agree with above with following additions/corrections. Patient is a 43 year old female with past medical history significant for DM2, morbid obesity, hyperlipidemia, nephrolithiasis, and anemia that presented to the emergency room for intermittent palpitations with chest pain. Patient states she feels better. States she believes she was having chest pain and palpitations secondary to her menstrual period. Patient is denying any shortness of breath. No headaches. No change in vision. No dizziness or lightheadedness. No nausea, vomiting, or abdominal pain. No dysuria. No diarrhea or constipation. General: Awake and alert lying in bed in no acute distress HEENT: Normocephalic, atraumatic. Extraocular muscles intact, pupils equal and reactive, no scleral icterus. Oropharynx is pink and moist. No pharyngeal erythema or exudate appreciated. Neck is supple. Cardiovascular: Regular rhythm. Normal S1 and S2. No murmurs, rubs, or gallops appreciated Pulmonary: Normal respiratory effort. No rhonchi, rales, or wheezing appreciated. Gastrointestinal: Soft, nondistended. Nontender. Positive bowel sounds all 4 quadrants. No guarding. Morbidly obese abdomen. Musculoskeletal: Moves all extremities. No calf tenderness. No edema. Central nervous system: AAOx3. Dermatologic: Skin warm and dry. Assessment and plan: Patient is a 43 year old female with past medical history significant for DM2, morbid obesity, hyperlipidemia, nephrolithiasis, and anemia that presented to the emergency room for intermittent palpitations with chest pa in. 1. Chest pain and palpitations. Improved today. Cardiology following, recommendations appreciated. Patient for stress test tomorrow. Continue ASA and Lipitor. Troponins within normal limits. Monitor on telemetry. Lipid panel within normal limits. TSH within normal limits. 2. Insulin dependent type 2 DM. Continue insulin sliding scale. Continue Humalog 72/25 AC. Continue to monitor accuchecks. HgbA1C 10.3. 3. Hypercholesterolemia. Continue Lipitor 4. Chronic anemia. H&H stable. Continue to monitor 5. Obesity. Counseled on diet and exercise 6. GI/DVT prophylaxis. Pepcid/Heparin 7. Patient is full code Case discussed in detail with patient regarding current diagnosis and treatment plan. All questions answered.
--- NOTE | 2018-11-01 12:53 | CON ---
DATE OF CONSULTATION: 11/01/2018 Cardiology consultation (Dr. Jules). HISTORY OF PRESENT ILLNESS: The patient is a 43-year-old woman who presents with palpitations and atypical chest pain associated with mild shortness of breath. The patient's cardiac risk factors include hypercholesterolemia, diabetes mellitus. She also suffers from obesity. She apparently states this has occurred since the day of admission. No previous cardiac history. On EKG, no arrhythmias noted. REVIEW OF SYSTEMS: A 14-point review of systems is reviewed in detail. No additional symptoms are noted. PHYSICAL EXAMINATION: VITAL SIGNS: Blood pressure is 92/50, heart rate in the 70s. NECK: Negative JVD. LUNGS: Without rales. HEART: S1, S2. EXTREMITIES: Without edema. EKG shows no acute changes. LABORATORY DATA: The glucose is 239, hemoglobin is 11.4, troponin x1 is negative. IMPRESSION: 1. Atypical chest pain. 2. No evidence for acute coronary syndrome. 3. Diabetes mellitus. 4. Hypercholesterolemia. 5. Obesity. PLAN: Given these findings, we will obtain serial troponins. The patient would benefit from a stress test given her cardiac risk factors. We will schedule a Lexiscan in the morning with Dr. Jules. In the morning, we will return the care back to Dr. Jules. Freddie Cody MD
[2018-11-01] MEDS ORDERED: Dextrose 50% SYRINGE Inj (50 ml) IV PRN (15:14)
[2018-11-01] MEDS ORDERED: Insulin Lispro (humaLOG) MIX 75/25(10 ml) SC SCH ×2 (16:30)
[2018-11-02 07:06] LABS: BASO # 0.04 K/mm3 (0.0-2.0); BASO % 0.9 % (0.0-3.0); EOS # 0.1 (0.0-0.7); EOS % 1.9 % (1.5-5.0); HEMOGLOBIN 11.5 g/dL (12.0-16.0); LYMPH % 43.1 % (22.0-35.0); MEAN CELL VOLUME 91.5 fl (80.0-105.0); MEAN CORPUSCULAR HEMOGLOBIN 30.5 pg (25.0-35.0); MEAN CORPUSCULAR HGB CONC 33.3 g/dl (31.0-37.0); MEAN PLATELET VOLUME 11.4 fl (7.0-11.0); MONO # 0.3 (0.1-0.6); MONO % 6.4 % (1.0-6.0); RBC 3.77 10^6/uL (3.5-6.1); RED CELL DISTRIBUTION WIDTH 13.6 % (11.5-14.5); WHITE BLOOD COUNT 4.7 10^3/uL (4.5-11.0)
[2018-11-02 07:17] LABS: ALB/GLOB RATIO 0.9 (1.1-1.8); ALBUMIN 3.6 g/dL (3.0-4.8); ALT/SGPT 16 U/L (7-56); AST/SGOT 25 U/L (14-36); BLOOD UREA NITROGEN 14 mg/dL (7-21); CALCIUM 8.7 mg/dL (8.4-10.5); GFR NON-AFRICAN AMERICAN > 60
--- NOTE | 2018-11-02 07:47 | CP.PCM.PN ---
Subjective - Date & Time of Evaluation Date of Evaluation: 11/02/18 Time of Evaluation: 06:30 - Subjective Subjective: awake, alert, no distress, denies chest pain Reason for consultation and follow up: Cardiac evaluation of intermittent palpitation and chest pain, history of diabetes,morbid obesity, hyperlipidemia, Seen and examined by me and Dr. Tucker Objective - Vital Signs/Intake and Output Vital Signs (last 24 hours): Temp Pulse Resp BP Pulse Ox 98.6 F 70 18 94/54 L 100 11/02/18 06:00 11/02/18 06:00 11/02/18 06:00 11/02/18 06:00 11/02/18 06:00 Intake and Output: 11/02/18 11/02/18 06:59 18:59 Intake Total 1320 Balance 1320 - Medications Medications: Current Medications Acetaminophen (Tylenol 325mg Tab) 650 mg PO Q6H PRN PRN Reason: Pain, Mild (1-3) Last Admin: 10/31/18 18:08 Dose: 650 mg Aspirin (Aspirin Chewable) 81 mg PO DAILY [facility] Last Admin: 11/01/18 09:09 Dose: 81 mg Atorvastatin Calcium (Lipitor) 20 mg PO DIN [facility] Last Admin: 11/01/18 18:15 Dose: 20 mg Dextrose (Dextrose 50% Inj) 0 ml IV STAT PRN; Protocol PRN Reason: Hypoglycemia Protocol Famotidine (Pepcid) 40 mg PO HS [facility] Last Admin: 11/01/18 22:08 Dose: 40 mg Heparin Sodium (Porcine) (Heparin) 5,000 units SC Q8 [facility]; Protocol Last Admin: 11/02/18 05:08 Dose: 5,000 units Dextrose (Dextrose 5% In Water 1000 Ml) 1,000 mls @ 0 mls/hr IV .Q0M PRN; Protocol PRN Reason: Hypoglycemia Protocol Insulin Human Lispro (Humalog Low) 0 units SC ACHS [facility]; Protocol Last Admin: 11/01/18 21:57 Dose: Not Given Insulin Lispro Protam/Lispro Human (Humalog Mix 75/25) 10 units SC AC [facility] Last Admin: 11/01/18 16:50 Dose: 10 units - Labs Labs: 11/02/18 06:20 11/02/18 06:20 PT 12.3 SECONDS (9.4-12.5) 10/30/18 21:16 INR 1.11 10/30/18 21:16 APTT 31.7 Seconds (26.9-38.3) 10/30/18 21:16 - Constitutional Appears: Non-toxic, No Acute Distress - Head Exam Head Exam: NORMAL INSPECTION, NORMOCEPHALIC - Eye Exam Eye Exam: Normal appearance Pupil Exam: NORMAL ACCOMODATION - ENT Exam ENT Exam: Mucous Membranes Moist, Normal Exam - Neck Exam Neck Exam: Full ROM, Normal Inspection - Respiratory Exam Respiratory Exam: Decreased Breath Sounds, Clear to Ausculation Bilateral, NORMAL BREATHING PATTERN - Cardiovascular Exam Cardiovascular Exam: REGULAR RHYTHM, +S1, +S2 Additional comments: Telemetry NSR 70's - GI/Abdominal Exam GI & Abdominal Exam: Soft, Normal Bowel Sounds - Extremities Exam Extremities Exam: Full ROM, Normal Capillary Refill - Neurological Exam Neurological Exam: Alert, Awake, Oriented x3 - Psychiatric Exam Psychiatric exam: Normal Affect, Normal Mood - Skin Skin Exam: Dry, Normal Color, Warm Assessment and Plan - Assessment and Plan (Free Text) Assessment: A 43 year old female morbidly obese who came in to the ER due to palpitations and chest pain. Middle right side chest pressure non radiating. History of diabetes,hyperlipidemia,anemia,nephrolithiasis. Troponin normal. EKG- NSR with no ischemia. 05/23/17 Echo showed LVEF 56%, normal ventricular function. Rule out acute coronary syndrome. Will order stress test and echo. Plan: Denies chest pain now For Stress test today For Echo today On ASA 81 mg daily, Lipitor 20 mg daily, Heparin 5000 units every 8 hours. Heart rate controlled Blood pressure stable Continue current treatment Continue current medications TSH, HgbA1C, lipid panel Glucose control Will follow up Plan and treatment discussed with Dr. Tucker
[2018-11-02] MEDS: Insulin Lispro (humaLOG) LOW Coverage SC SCH ×4 (08:13→22:25)
[2018-11-02] MEDS ORDERED: Aminophylline 25 mg/ml Inj ONE (08:23)
--- NOTE | 2018-11-02 17:38 | CP.PCM.PN ---
<Adolfo Hensley - Last Filed: 11/02/18 17:56> Subjective - Date & Time of Evaluation Date of Evaluation: 11/02/18 Time of Evaluation: 07:15 - Subjective Subjective: Pt seen and examined this morning. Per nursing, pt was able to tolerate meds, pt received stress test today, d/c tele. Objective - Vital Signs/Intake and Output Vital Signs (last 24 hours): Temp Pulse Resp BP Pulse Ox 98.6 F 82 18 108/60 100 11/02/18 06:00 11/02/18 10:42 11/02/18 06:00 11/02/18 10:42 11/02/18 06:00 Intake and Output: 11/02/18 11/02/18 06:59 18:59 Intake Total 1320 Balance 1320 - Medications Medications: Current Medications Acetaminophen (Tylenol 325mg Tab) 650 mg PO Q6H PRN PRN Reason: Pain, Mild (1-3) Last Admin: 10/31/18 18:08 Dose: 650 mg Aspirin (Aspirin Chewable) 81 mg PO DAILY [facility] Last Admin: 11/02/18 11:30 Dose: 81 mg Atorvastatin Calcium (Lipitor) 20 mg PO DIN [facility] Last Admin: 11/02/18 17:23 Dose: 20 mg Dextrose (Dextrose 50% Inj) 0 ml IV STAT PRN; Protocol PRN Reason: Hypoglycemia Protocol Famotidine (Pepcid) 40 mg PO HS [facility] Last Admin: 11/01/18 22:08 Dose: 40 mg Heparin Sodium (Porcine) (Heparin) 5,000 units SC Q8 [facility]; Protocol Last Admin: 11/02/18 14:23 Dose: 5,000 units Dextrose (Dextrose 5% In Water 1000 Ml) 1,000 mls @ 0 mls/hr IV .Q0M PRN; Protocol PRN Reason: Hypoglycemia Protocol Insulin Human Lispro (Humalog Low) 0 units SC ACHS [facility]; Protocol Last Admin: 11/02/18 17:23 Dose: 3 units Insulin Lispro Protam/Lispro Human (Humalog Mix 75/25) 10 units SC AC [facility] Last Admin: 11/01/18 16:50 Dose: 10 units - Labs Labs: 11/02/18 06:20 11/02/18 06:20 PT 12.3 SECONDS (9.4-12.5) 10/30/18 21:16 INR 1.11 10/30/18 21:16 APTT 31.7 Seconds (26.9-38.3) 10/30/18 21:16 - Constitutional Appears: No Acute Distress - Head Exam Head Exam: ATRAUMATIC, NORMOCEPHALIC - Eye Exam Eye Exam: EOMI - ENT Exam ENT Exam: Mucous Membranes Moist - Neck Exam Neck Exam: Full ROM - Respiratory Exam Respiratory Exam: Clear to Ausculation Bilateral, NORMAL BREATHING PATTERN. absent: Accessory Muscle Use, Respiratory Distress - Cardiovascular Exam Cardiovascular Exam: RRR, +S1, +S2. absent: Diastolic murmur, Murmur - GI/Abdominal Exam GI & Abdominal Exam: Soft, Normal Bowel Sounds - Extremities Exam Extremities Exam: Full ROM. absent: Calf Tenderness, Pedal Edema - Neurological Exam Neurological Exam: Alert, Awake, Oriented x3 - Psychiatric Exam Psychiatric exam: Normal Affect, Normal Mood - Skin Skin Exam: Dry, Intact, Warm Assessment and Plan - Assessment and Plan (Free Text) Assessment: Pt is a 43 yo female whose PMH includes DM, Nephrolithiasis, Morbid Obesity, HLD, Anemia who presented to the ED for intermittent palpitations with chest pa in, rule out ACS. Plan: Chest Pain - rule out ACS - Trop negative x3 - aspirin - TSH 1.54 - T4 1.22 - CXR: no active cardiopulmonary disease - Stress test: follow up - ECHO: completed, follow up read - Cardio consulted HLD - Lipitor 20mg - Lipid panel within normal limited Morbid Obesity - counseled on diet and exercise DM - HA1C 10.3 - ISS - Accuchecks Anemia - 11.5, baseline Ppx - Heparin - pepcid - CCD Pt seen, examined, assessment and plan discussed with Dr Krzysztof Hensley PGY1, Internal Medicine Resident <Reginald Blankenship - Last Filed: 11/03/18 17:31> Objective - Vital Signs/Intake and Output Vital Signs (last 24 hours): Temp Pulse Resp BP Pulse Ox 97.8 F 78 18 98/59 L 97 11/03/18 06:00 11/03/18 06:00 11/03/18 06:00 11/03/18 06:00 11/03/18 06:00 Intake and Output: 11/03/18 11/03/18 06:59 18:59 Intake Total 620 Balance 620 - Labs Labs: 11/03/18 06:45 11/03/18 06:45 PT 12.3 SECONDS (9.4-12.5) 10/30/18 21:16 INR 1.11 10/30/18 21:16 APTT 31.7 Seconds (26.9-38.3) 10/30/18 21:16 Attending/Attestation - Attestation I have personally seen and examined this patient.: Yes I have fully participated in the care of the patient.: Yes I have reviewed all pertinent clinical information, including history, physical exam and plan: Yes Notes (Text): 11/03/18 17:29 Attending note; Patient seen and examined with resident. Patient is alert and awake. Denies any chest pain. Waiting for stress test. Patient is a 43 year old female with past medical history significant for DM2, morbid obesity, hyperlipidemia, nephrolithiasis, and anemia that presented to the emergency room for intermittent palpitations with chest pain. 1. Chest pain and palpitations. Improved today. Cardiology following, recommendations appreciated. Patient for stress test today. Continue ASA and Lipitor. Troponins within normal limits. Monitor on telemetry. Lipid panel within normal limits. TSH within normal limits. 2. Insulin dependent type 2 DM. Continue insulin sliding scale. Continue Humalog 72/25 AC. 3. Hypercholesterolemia. Continue Lipitor 4. Chronic anemia. H&H stable. Continue to monitor 5. Obesity. Counseled on diet and exercise 6. GI/DVT prophylaxis. Pepcid/Heparin Upon discharge patient will follow-up with PMD .
--- NOTE | 2018-11-02 18:02 | CARD ---
APPROVED REPORT Date of service: 11/02/2018 EXAM: Two-dimensional and M-mode echocardiogram with Doppler and color Doppler. INDICATION LV Function:SystolicDiastolic 2D DIMENSIONS Left Atrium (2D)3.2 (1.6-4.0cm)IVSd1.0 (0.7-1.1cm) LVDd4.4 (3.9-5.9cm)PWd1.0 (0.7-1.1cm) LVDs3.0 (2.5-4.0cm)FS (%) 31.9 % LVEF (%)60.2 (>50%) M-Mode DIMENSIONS Aortic Root2.70 (2.2-3.7cm)Aortic Cusp Exc.1.70 (1.5-2.0cm) Aortic Valve AoV Peak Ptmzecwy494.0cm/Fabian Peak GR.7mmHg Mitral Valve MV E Cdfxcyaw23.1cm/sMV A Kthpkjtw95.8cm/sE/A ratio1.1 TDI E/Lateral E'0.0E/Medial E'0.0 Tricuspid Valve TR Peak Endebitf822bl/sRAP [id number] Peak Gr.4mmHg [id number] LEFT VENTRICLE The left ventricle is normal size. There is normal left ventricular wall thickness. The left ventricular function is normal.EF-55-60% There is normal LV segmental wall motion. The left ventricular diastolic function is normal. No left ventricle thrombus noted on this study. There is no ventricular septal defect visualized. There is no left ventricular aneurysm. RIGHT VENTRICLE The right ventricle is normal size. There is normal right ventricular wall thickness. The right ventricular systolic function is normal. ATRIA The left atrium size is normal. The right atrium size is normal. The interatrial septum is intact with no evidence for an atrial septal defect. AORTIC VALVE The aortic valve is normal in structure. No aortic regurgitation is present. There is no aortic valvular stenosis. There is no aortic valvular vegetation. MITRAL VALVE The mitral valve is thickened but opens well. Mitral regurgitation is trace. There is no mitral valve stenosis. There is no evidence of mitral valve prolapse. TRICUSPID VALVE The tricuspid valve is normal in structure. There is trace tricuspid regurgitation.RVSP-14 mmof hg. There is no tricuspid valve stenosis. There is no tricuspid valve prolapse or vegetation. PULMONIC VALVE The pulmonary valve is normal in structure. There is trace pulmonic valvular regurgitation. There is no pulmonic valvular stenosis. GREAT VESSELS The aortic root is normal in size. The ascending aorta is normal in size. The pulmonary artery is normal. The IVC is normal in size and collapses >50% with inspiration. PERICARDIAL EFFUSION There is no pleural effusion. There is no pericardial effusion. <Conclusion> Normal Chamber Size. EF-55-60% Trace MR/TR/PIU RVSP-14 mmof Hg. The IVC is normal in size and collapses >50% with inspiration. There is no pericardial effusion. No vegetation or thrombuis noted.
[2018-11-02 22:45] VITALS: TEMP 97.8; O2SAT 97
[2018-11-03 07:20] LABS: BASO # 0.03 K/mm3 (0.0-2.0); BASO % 0.7 % (0.0-3.0); EOS # 0.1 (0.0-0.7); EOS % 1.8 % (1.5-5.0); LYMPH % 46.8 % (22.0-35.0); MEAN CELL VOLUME 92.1 fl (80.0-105.0); MEAN CORPUSCULAR HGB CONC 32.5 g/dl (31.0-37.0); MEAN PLATELET VOLUME 10.6 fl (7.0-11.0); MONO # 0.3 (0.1-0.6); MONO % 7.3 % (1.0-6.0); RBC 3.67 10^6/uL (3.5-6.1); RED CELL DISTRIBUTION WIDTH 13.5 % (11.5-14.5); WHITE BLOOD COUNT 4.4 10^3/uL (4.5-11.0)
[2018-11-03] MEDS: Insulin Lispro (humaLOG) LOW Coverage SC SCH ×2 (07:53→12:50)
[2018-11-03 08:01] VITALS: BP 98/59; PULSE 78
[2018-11-03 08:01] LABS: HDL CHOLESTEROL 42 mg/dL (29-60)
[2018-11-03 08:14] LABS: ALB/GLOB RATIO 0.9 (1.1-1.8); ALBUMIN 3.5 g/dL (3.0-4.8); ALT/SGPT 18 U/L (7-56); AST/SGOT 27 U/L (14-36); BLOOD UREA NITROGEN 9 mg/dL (7-21); CALCIUM 8.8 mg/dL (8.4-10.5); GFR NON-AFRICAN AMERICAN > 60; LDL CHOLESTEROL 62 mg/dL (0-129)
[2018-11-03 10:05] LABS: BARBITURATES, UR NEGATIVE (NEGATIVE); BENZODIAZEPINES, UR NEGATIVE (NEGATIVE); OPIATES, UR NEGATIVE (NEGATIVE); PHENCYCLIDINE, UR NEGATIVE (NEGATIVE)
--- NOTE | 2018-11-03 13:37 | CP.PCM.DIS ---
<AydenAdolfo Callum - Last Filed: 11/03/18 14:00> Provider - Provider Date of Admission: 11/01/18 12:19 Attending physician: Reginald Blankenship MD Primary care physician: Ernst Burger MD Consults: 10/31/18 00:07 Physician Consult Routine Comment: Consulting Provider: Ayaan Jules Consulting Physician: Ayaan Jules Reason for Consult: palpitations 11/01/18 15:15 Diabetic Education Referral Routine Comment: Physician Instructions: Reason For Exam: diabetes education, uncontrolled DM Time Spent in preparation of Discharge (in minutes): 35 Diagnosis - Discharge Diagnosis (1) Chest pain Status: Acute Priority: High (2) HLD (hyperlipidemia) Status: Chronic Priority: High (3) Morbid obesity Status: Chronic Priority: High (4) Diabetes Status: Chronic Priority: High (5) Anemia Status: Chronic Priority: High Hospital Course - Lab Results Lab Results: Most Recent Lab Values WBC 4.4 10^3/uL (4.5-11.0) L 11/03/18 06:45 RBC 3.67 10^6/uL (3.5-6.1) 11/03/18 06:45 Hgb 11.0 g/dL (12.0-16.0) L 11/03/18 06:45 Hct 33.8 % (36.0-48.0) L 11/03/18 06:45 MCV 92.1 fl (80.0-105.0) 11/03/18 06:45 MCH 30.0 pg (25.0-35.0) 11/03/18 06:45 MCHC 32.5 g/dl (31.0-37.0) 11/03/18 06:45 RDW 13.5 % (11.5-14.5) 11/03/18 06:45 Plt Count 303 10^3/uL (120.0-450.0) 11/03/18 06:45 MPV 10.6 fl (7.0-11.0) 11/03/18 06:45 Neut % (Auto) 43.4 % (50.0-68.0) L 11/03/18 06:45 Lymph % (Auto) 46.8 % (22.0-35.0) H 11/03/18 06:45 [place] % (Auto) 7.3 % (1.0-6.0) H 11/03/18 06:45 Eos % (Auto) 1.8 % (1.5-5.0) 11/03/18 06:45 Baso % (Auto) 0.7 % (0.0-3.0) 11/03/18 06:45 Lymph # (Auto) 2.0 (1.2-3.4) 11/03/18 06:45 [place] # (Auto) 0.3 (0.1-0.6) 11/03/18 06:45 Eos # (Auto) 0.1 (0.0-0.7) 11/03/18 06:45 Baso # (Auto) 0.03 K/mm3 (0.0-2.0) 11/03/18 06:45 Absolute Neuts (auto) 1.89 (1.4-6.5) 11/03/18 06:45 PT 12.3 SECONDS (9.4-12.5) 10/30/18 21:16 INR 1.11 10/30/18 21:16 APTT 31.7 Seconds (26.9-38.3) 10/30/18 21:16 Sodium 137 mmol/L (132-148) 11/03/18 06:45 Potassium 4.2 mmol/L (3.6-5.0) 11/03/18 06:45 Chloride 106 mmol/L (98-107) 11/03/18 06:45 Carbon Dioxide 26 mmol/L (21-33) 11/03/18 06:45 Anion Gap 10 (10-20) 11/03/18 06:45 BUN 9 mg/dL (7-21) 11/03/18 06:45 Creatinine 0.7 mg/dl (0.7-1.2) 11/03/18 06:45 Est GFR ( Amer) > 60 11/03/18 06:45 Est GFR (Non-Af Amer) > 60 11/03/18 06:45 POC Glucose (mg/dL) 338 mg/dL (65-110) H 11/03/18 12:40 Random Glucose 221 mg/dL (70-110) H 11/03/18 06:45 Hemoglobin A1c 10.1 % (4.2-6.5) H 11/03/18 06:45 Calcium 8.8 mg/dL (8.4-10.5) 11/03/18 06:45 Phosphorus 3.3 mg/dL (2.5-4.5) 11/01/18 05:00 Magnesium 1.6 mg/dL (1.7-2.2) L 11/01/18 05:00 Total Bilirubin 0.2 mg/dL (0.2-1.3) 11/03/18 06:45 AST 27 U/L (14-36) 11/03/18 06:45 ALT 18 U/L (7-56) 11/03/18 06:45 Alkaline Phosphatase 64 U/L (38-126) 11/03/18 06:45 Lactate Dehydrogenase 659 U/L (333-699) 10/30/18 21:16 Total Creatine Kinase 245 U/L (35-230) H 10/30/18 21:16 CK-MB (CK-2) 1.0 ng/mL (0.0-3.6) 10/30/18 21:16 CK-MB (CK-2) % Cancelled 10/30/18 21:16 Troponin I < 0.01 ng/mL 11/02/18 06:20 Total Protein 7.3 g/dL (5.8-8.3) 11/03/18 06:45 Albumin 3.5 g/dL (3.0-4.8) 11/03/18 06:45 Globulin 3.7 gm/dL 11/03/18 06:45 Albumin/Globulin Ratio 0.9 (1.1-1.8) L 11/03/18 06:45 Triglycerides 90 mg/dL (35-160) 11/03/18 06:45 Cholesterol 124 mg/dL (130-200) L 11/03/18 06:45 LDL Cholesterol Direct 62 mg/dL (0-129) 11/03/18 06:45 HDL Cholesterol 42 mg/dL (29-60) 11/03/18 06:45 Free T4 1.22 ng/dL (0.78-2.19) 10/31/18 03:45 TSH 3rd Generation 1.00 mIU/mL (0.46-4.68) 11/03/18 06:45 Urine Color Red (YELLOW) 11/01/18 01:50 Urine Appearance Bloody (CLEAR) 11/01/18 01:50 Urine pH 5.5 (4.7-8.0) 11/01/18 01:50 Ur Specific [place] >= 1.030 (1.005-1.035) 11/01/18 01:50 Urine Protein 100 mg/dL (<30 mg/dL) H 11/01/18 01:50 Urine Glucose (UA) >=1000 mg/dL (NEGATIVE) 11/01/18 01:50 Urine Ketones Trace mg/dL (NEGATIVE) H 11/01/18 01:50 Urine Blood Large (NEGATIVE) H 11/01/18 01:50 Urine Nitrate Positive (NEGATIVE) H 11/01/18 01:50 Urine Bilirubin Negative (NEGATIVE) 11/01/18 01:50 Urine Urobilinogen 1.0 E.U./dL (<1 E.U./dL) H 11/01/18 01:50 Ur Leukocyte Esterase Trace Preston/uL (NEGATIVE) H 11/01/18 01:50 Urine RBC Tntc /hpf (0-2) H 11/01/18 01:50 Urine WBC 1 - 3 /hpf (0-6) 11/01/18 01:50 Ur Epithelial Cells 0 - 2 /hpf (0-5) 11/01/18 01:50 Urine Bacteria Few /hpf (NONE) 11/01/18 01:50 Urine Opiates Screen Negative (NEGATIVE) 11/03/18 09:13 Urine Methadone Screen Negative (NEGATIVE) 11/03/18 09:13 Ur Barbiturates Screen Negative (NEGATIVE) 11/03/18 09:13 Ur Phencyclidine Scrn Negative (NEGATIVE) 11/03/18 09:13 Ur Amphetamines Screen Negative (NEGATIVE) 11/03/18 09:13 U Benzodiazepines Scrn Negative (NEGATIVE) 11/03/18 09:13 U Oth Cocaine Metabols Negative (NEGATIVE) 11/03/18 09:13 U Cannabinoids Screen Negative (NEGATIVE) 11/03/18 09:13 - Hospital Course Hospital Course: Hospitalization Pt is a 43 yo female whose PMH includes DM, Morbid Obesity, HLD, Nephrolithiasis, Anemia who presented to the ED for intermittent palpitations with chest pain. Both the chest pain and palpitations occurred at rest. Chest pain is located at the middle-right side of the chest. She said it lasted for a few hours. Chest pain was described as pressure-like. She endorses heavy menses which has been going on for quite some time. She also has a recent 10 pound weight gain. Discharge Follow up with Primary Care Physician, Dr. Burger, within 3-5 days. Follow up with the skiing instructor, Dr. Jules. Please make the diet and exercise changes that we discussed when you were here. Spoke with pt about her home medications. Pt states she takes Iron 325 daily, Crestor 10mg daily, 70/30 insulin pen 38units TID. Pt understands the importance of taking her meds, compliance and how to use her insulin pen. Pt stress test came back as normal. - Date & Time of H&P Date of H&P: 11/03/18 Time of H&P: 07:00 Discharge Exam - Head Exam Head Exam: ATRAUMATIC, NORMOCEPHALIC - Eye Exam Eye Exam: EOMI - ENT Exam ENT Exam: Mucous Membranes Moist - Neck Exam Neck exam: Full Rom - Respiratory Exam Respiratory Exam: NORMAL BREATHING PATTERN, UNREMARKABLE. absent: Accessory Muscle Use, Respiratory Distress - Cardiovascular Exam Cardiovascular Exam: RRR, +S1, +S2. absent: Diastolic murmur, Systolic Murmur - GI/Abdominal Exam GI & Abdominal Exam: Normal Bowel Sounds, Unremarkable. absent: Tenderness - Extremities Exam Extremities exam: full ROM, pedal pulses present - Neurological Exam Neurological exam: Alert, Oriented x3 - Psychiatric Exam Psychiatric exam: Normal Affect, Normal Mood - Skin Skin Exam: Dry, Normal Color, Warm Discharge Plan - Follow Up Plan Condition: STABLE Disposition: HOME/ ROUTINE Instructions: Cardiac Stress Test, Heart Healthy Diet, Chest Pain (DC), Diabetic Meal Planning , Palpitations (DC) Additional Instructions: Please follow up with your Primary Care Physician, Dr. Burger, within 3-5 days. Please follow up with the skiing instructor that saw you here, Dr. Jules. A referral has been made. Please make the diet and exercise changes that we discussed when you were here. If your symptoms return, please report to the emergency room immediately. Referrals: Ernst Burger MD [Primary Care Provider] - Ayaan Jules MD [Staff Provider] - <Reginald Blankenship - Last Filed: 11/03/18 17:32> Provider - Provider Date of Admission: 11/01/18 12:19 Attending physician: Reginald Blankenship MD Primary care physician: Ernst Burger MD Consults: 10/31/18 00:07 Physician Consult Routine Comment: Consulting Provider: Ayaan Jules Consulting Physician: Ayaan Jules Reason for Consult: palpitations 11/01/18 15:15 Diabetic Education Referral Routine Comment: Physician Instructions: Reason For Exam: diabetes education, uncontrolled DM Hospital Course - Lab Results Lab Results: Most Recent Lab Values WBC 4.4 10^3/uL (4.5-11.0) L 11/03/18 06:45 RBC 3.67 10^6/uL (3.5-6.1) 11/03/18 06:45 Hgb 11.0 g/dL (12.0-16.0) L 11/03/18 06:45 Hct 33.8 % (36.0-48.0) L 11/03/18 06:45 MCV 92.1 fl (80.0-105.0) 11/03/18 06:45 MCH 30.0 pg (25.0-35.0) 11/03/18 06:45 MCHC 32.5 g/dl (31.0-37.0) 11/03/18 06:45 RDW 13.5 % (11.5-14.5) 11/03/18 06:45 Plt Count 303 10^3/uL (120.0-450.0) 11/03/18 06:45 MPV 10.6 fl (7.0-11.0) 11/03/18 06:45 Neut % (Auto) 43.4 % (50.0-68.0) L 11/03/18 06:45 Lymph % (Auto) 46.8 % (22.0-35.0) H 11/03/18 06:45 [place] % (Auto) 7.3 % (1.0-6.0) H 11/03/18 06:45 Eos % (Auto) 1.8 % (1.5-5.0) 11/03/18 06:45 Baso % (Auto) 0.7 % (0.0-3.0) 11/03/18 06:45 Lymph # (Auto) 2.0 (1.2-3.4) 11/03/18 06:45 [place] # (Auto) 0.3 (0.1-0.6) 11/03/18 06:45 Eos # (Auto) 0.1 (0.0-0.7) 11/03/18 06:45 Baso # (Auto) 0.03 K/mm3 (0.0-2.0) 11/03/18 06:45 Absolute Neuts (auto) 1.89 (1.4-6.5) 11/03/18 06:45 PT 12.3 SECONDS (9.4-12.5) 10/30/18 21:16 INR 1.11 10/30/18 21:16 APTT 31.7 Seconds (26.9-38.3) 10/30/18 21:16 Sodium 137 mmol/L (132-148) 11/03/18 06:45 Potassium 4.2 mmol/L (3.6-5.0) 11/03/18 06:45 Chloride 106 mmol/L (98-107) 11/03/18 06:45 Carbon Dioxide 26 mmol/L (21-33) 11/03/18 06:45 Anion Gap 10 (10-20) 11/03/18 06:45 BUN 9 mg/dL (7-21) 11/03/18 06:45 Creatinine 0.7 mg/dl (0.7-1.2) 11/03/18 06:45 Est GFR ( Amer) > 60 11/03/18 06:45 Est GFR (Non-Af Amer) > 60 11/03/18 06:45 POC Glucose (mg/dL) 338 mg/dL (65-110) H 11/03/18 12:40 Random Glucose 221 mg/dL (70-110) H 11/03/18 06:45 Hemoglobin A1c 10.1 % (4.2-6.5) H 11/03/18 06:45 Calcium 8.8 mg/dL (8.4-10.5) 11/03/18 06:45 Phosphorus 3.3 mg/dL (2.5-4.5) 11/01/18 05:00 Magnesium 1.6 mg/dL (1.7-2.2) L 11/01/18 05:00 Total Bilirubin 0.2 mg/dL (0.2-1.3) 11/03/18 06:45 AST 27 U/L (14-36) 11/03/18 06:45 ALT 18 U/L (7-56) 11/03/18 06:45 Alkaline Phosphatase 64 U/L (38-126) 11/03/18 06:45 Lactate Dehydrogenase 659 U/L (333-699) 10/30/18 21:16 Total Creatine Kinase 245 U/L (35-230) H 10/30/18 21:16 CK-MB (CK-2) 1.0 ng/mL (0.0-3.6) 10/30/18 21:16 CK-MB (CK-2) % Cancelled 10/30/18 21:16 Troponin I < 0.01 ng/mL 11/02/18 06:20 Total Protein 7.3 g/dL (5.8-8.3) 11/03/18 06:45 Albumin 3.5 g/dL (3.0-4.8) 11/03/18 06:45 Globulin 3.7 gm/dL 11/03/18 06:45 Albumin/Globulin Ratio 0.9 (1.1-1.8) L 11/03/18 06:45 Triglycerides 90 mg/dL (35-160) 11/03/18 06:45 Cholesterol 124 mg/dL (130-200) L 11/03/18 06:45 LDL Cholesterol Direct 62 mg/dL (0-129) 11/03/18 06:45 HDL Cholesterol 42 mg/dL (29-60) 11/03/18 06:45 Free T4 1.22 ng/dL (0.78-2.19) 10/31/18 03:45 TSH 3rd Generation 1.00 mIU/mL (0.46-4.68) 11/03/18 06:45 Urine Color Red (YELLOW) 11/01/18 01:50 Urine Appearance Bloody (CLEAR) 11/01/18 01:50 Urine pH 5.5 (4.7-8.0) 11/01/18 01:50 Ur Specific [place] >= 1.030 (1.005-1.035) 11/01/18 01:50 Urine Protein 100 mg/dL (<30 mg/dL) H 11/01/18 01:50 Urine Glucose (UA) >=1000 mg/dL (NEGATIVE) 11/01/18 01:50 Urine Ketones Trace mg/dL (NEGATIVE) H 11/01/18 01:50 Urine Blood Large (NEGATIVE) H 11/01/18 01:50 Urine Nitrate Positive (NEGATIVE) H 11/01/18 01:50 Urine Bilirubin Negative (NEGATIVE) 11/01/18 01:50 Urine Urobilinogen 1.0 E.U./dL (<1 E.U./dL) H 11/01/18 01:50 Ur Leukocyte Esterase Trace Preston/uL (NEGATIVE) H 11/01/18 01:50 Urine RBC Tntc /hpf (0-2) H 11/01/18 01:50 Urine WBC 1 - 3 /hpf (0-6) 11/01/18 01:50 Ur Epithelial Cells 0 - 2 /hpf (0-5) 11/01/18 01:50 Urine Bacteria Few /hpf (NONE) 11/01/18 01:50 Urine Opiates Screen Negative (NEGATIVE) 11/03/18 09:13 Urine Methadone Screen Negative (NEGATIVE) 11/03/18 09:13 Ur Barbiturates Screen Negative (NEGATIVE) 11/03/18 09:13 Ur Phencyclidine Scrn Negative (NEGATIVE) 11/03/18 09:13 Ur Amphetamines Screen Negative (NEGATIVE) 11/03/18 09:13 U Benzodiazepines Scrn Negative (NEGATIVE) 11/03/18 09:13 U Oth Cocaine Metabols Negative (NEGATIVE) 11/03/18 09:13 U Cannabinoids Screen Negative (NEGATIVE) 11/03/18 09:13 Attending/Attestation - Attestation I have personally seen and examined this patient.: Yes I have fully participated in the care of the patient.: Yes I have reviewed all pertinent clinical information, including history, physical exam and plan: Yes Notes (Text): 11/03/18 17:31 Attending note; Patient seen and examined with resident. Patient is alert and awake. Denies any chest pain. Patient completed a stress test. Pending results. Patient is a 43 year old female with past medical history significant for DM2, morbid obesity, hyperlipidemia, nephrolithiasis, and anemia that presented to the emergency room for intermittent palpitations with chest pain. 1. Chest pain and palpitations. resolved. Cardiology evaluation appreciated. s/p stress test today. Pending results. Case discussed with cardiology in detail. Patient can be discharged with outpatient follow-up. Continue ASA and Lipitor. 2. Insulin dependent type 2 DM. Continue insulin sliding scale. Continue Humalog 72/25 at home. 3. Hypercholesterolemia. Continue Lipitor 4. Chronic anemia. H&H stable. Continue to monitor 5. Obesity. Counseled on diet and exercise Upon discharge patient will follow-up with PMD .
[2018-11-03] MEDS ORDERED: Influenza Vaccine 60 mcg/0.5 mL SYR (4YR UP) IM ONE (13:55)
--- NOTE | 2018-11-03 16:19 | PN ---
DATE: 11/03/2018 REASON FOR CONSULTATION: Follow up chest pain, atypical, status post stress test on two-day protocol. SUBJECTIVE: The patient denies any chest pain, shortness of breath or any palpitation. OBJECTIVE: GENERAL: Not in apparent distress, awaiting to go for second portion of the stress test, a two-day protocol. VITAL SIGNS: Temperature afebrile, heart rate 70, blood pressure 110/70. HEENT: PERRLA. Extraocular muscles intact. NECK: Supple. No carotid bruit or thyromegaly. CHEST: Clear to auscultation. HEART: S1 and S2. Regular. ABDOMEN: Soft. EXTREMITIES: Clubbing, cyanosis negative. LABORATORY DATA: Blood workup as follows: WBC 4.5, hemoglobin 11, hematocrit 33.8, platelet count 303. Chemistry shows sodium 137, potassium 4.2, chloride 106, carbon dioxide 26, anion gap of 10, BUN 9, and creatinine 0.7. Troponin x4 negative. IMPRESSION: A 43-year-old morbidly obese female with past medical history significant for hyperlipidemia, type 2 diabetes, anemia, admitted with chest pain atypical; so far troponin remains negative. The patient underwent yesterday echocardiography that showed normal chamber size, ejection fraction 55% to 60%, trace mitral regurgitation, trace tricuspid regurgitation, trace pulmonary regurgitation, pulmonary insufficiency. Underwent stress test two days protocol. Yesterday, the patient had Lexiscan and today is awaiting for the second day protocol. So far, no evidence of acute myocardial infarction. RECOMMENDATIONS: Aggressive medical treatment, aspirin, Lipitor, deep venous thrombosis prophylaxis. Okay to discharge after the stress test. Follow up the result as outpatient, discussed with the patient. Telemetry had been discontinued. Thank you Dr. Blankenship for providing us this opportunity in taking care of the patient, Camila Melo. Cell phone number is obtained. In case stress test is abnormal, we will call the patient. We will follow the stress result as outpatient. So far, no evidence of acute myocardial infarction noted. Ayaan Tucker MD
--- NOTE | 2018-11-03 21:57 | CARD ---
APPROVED REPORT Date of service: 11/02/2018 Protocol: LEXISCAN Test Type: Lexiscan Sestamibi Stress Test Attending Physician: Dr. Ayaan Jules Referring Physician: Dr. Martha Wild Test Indications: Chest Pain Height:5 ft 6 in Weight:299lbs Medications: Tylenol, Aspirin, Pepcid, Heparin, Humalog insulin Medical History: 43 year old female with a history of diabetes,HTN, high cholesterol Target HR: 149 bpm Resting ECG: RSR Resting Heart Rate: 82 bpm Resting Blood Pressure: 108/60mmHg Submaximum (85%): 127 bpm PROCEDURE Pharmacologic stress testing was performed using 0.4mg per 5ml of regadenoson given intravenously over 7-10 seconds. Reversal agent aminophyline 100 mg, given intravenously for Dyspnea. POST EXERCISE Reason for Termination: Protocol completed Target HR: No Max HR: 87 bpm 80% of Maximum Predicted HR: 149 bpm Exercise duration: 00:31 min:sec, 0 Stage Exercise capacity: 1.0METs Max Blood Pressure: 108/60mmHg Blood Pressure response to exercise: normal resting BP - appropriate response Heart Rate response to exercise: appropriate Chest Pain: No, none Angina index: 0 Arrhythmia: No, none ST Change: No, none Deviation: 0 mm TEST SUMMARY [id number]. INFUSIONDOSE 100:[id number]/.0. [id number]. INTERPRETATION Stress EKG Conclusion: IV LEXISCAN NUCLEAR STRESS TEST NEGATIVE FOR CHEST PAIN AND NEGATIVE FOR ST-T CHANGES. NUCLEAR SCAN REPORT PENDING. Signed by Ayaan Jules Electronically Approved: 11/02/2018 10:22:18 EXAM: Myocardial Perfusion STRESS/REST 2DAYS Stress Test Type: Pharmacologic Imaging Protocol The imaging protocol used to acquire images was Stress Tc-99m/rest Tc-99m 2day Rest Spect myocardial perfusion imaging was performed in supine position 45 minutes following the injection of 30.1 mCi of Tc-99 Myoview. At peak stress, the patient was injected intravenously with 30.9mCi of Tc-99 tetrofosmin after an infusion time of 0 minutes and 10 seconds. Gated Stress Spect was performed 60 minutes after intravenous Tc-99 Myoview injection. The images were gated to evaluate regional wall motion and calculate ventricular ejection fraction.Images were reconstructed using backfilter projection method in short horizontal and verticle long axis. Spect slices were generated. LV Perfusion The quality of the study is good. The left ventricle is normal in size with thikcened myocardiume. The right ventricle is unremarkable. The lung uptake is normal. The distribution of tracer reveals moderately decreased perfusion involving distal anterior/apical wall on the stress study. The remainder of the LV myocardium is unremarkable. The rest myocardial perfusion study shows no significant change. Wall Motion Wall motion study shows good contractility of the left ventricle. LVEF = 63%. Conclusion 1. Essentially normal SPECT myocardial perfusion study. 2. Fixed, distal anterior/ apial defect is most likely due to breast attenuation. 3. Normal gated wall motion of the left ventricle.
== END 2018-11-03 15:55 | disposition home or self-care (01) | DRG 313 ==
LOC: ED 20:11 → ERH 10-31 00:12 → 2RNO 10-31 02:02 → OBSVTOIN 11-01 12:19 → 5RNO 11-02 15:00
PROVIDERS: ADMIT Internal Medicine; ATTEND Internal Medicine
DX: R07.89 Other chest pain (principal); Z68.42 Body mass index [BMI] 45.0-49.9, adult; E66.01 Morbid (severe) obesity due to excess calories; E11.9 Type 2 diabetes mellitus without complications; R00.2 Palpitations; E78.00 Pure hypercholesterolemia, unspecified; D64.9 Anemia, unspecified; N92.0 Excessive and frequent menstruation with regular cycle; Z79.4 Long term (current) use of insulin; Z23 Encounter for immunization; Z87.442 Personal history of urinary calculi; Z83.3 Family history of diabetes mellitus

== ENCOUNTER 2018-11-16 14:29 | Outpatient (CLI) | payer MEDICARE, OTHER | END 2018-11-16 14:30 | disposition home or self-care (01) | LOC: RAD 14:29 | DX: N20.9 Urinary calculus, unspecified (principal) ==

== ENCOUNTER 2019-01-31 12:39 | Emergency (ER) | payer MEDICARE, OTHER ==
[2019-01-31 12:53] VITALS: BMI 46.1
[2019-01-31 12:59] VITALS: TEMP 98.6; O2SAT 100
--- NOTE | 2019-01-31 13:43 | ED PDOC ---
Arrival/HPI - General Chief Complaint: Female Genitourinary Time Seen by Provider: 01/31/19 12:42 Historian: Patient - History of Present Illness Narrative History of Present Illness (Text): 01/31/19 13:40 53 y/o female whose past medical history includes diabetes, hyperlipidemia, obesity,who presents to the emergency department complaining of abdominal pain associated with heavy menstrual cycle since . Patient reports an increase in vaginal bleeding with clots. Patient states to have had similar menstrual cycles before. Patient denies fever, chills, chest pain, shortness of breath, nausea, vomiting, diarrhea, neck pain, headache, dizziness, or any other complaints. Time/Duration: < week (4 days. ) Symptom Onset: Gradual Symptom Course: Unchanged Context: Home Past Medical History - Provider Review Nursing Documentation Reviewed: Yes - Infectious Disease Hx of Infectious Diseases: None - Tetanus Immunization Tetanus Immunization: Unknown - Cardiac Hx Cardiac Disorders: Yes - Pulmonary Hx Respiratory Disorders: No - Neurological Hx Neurological Disorder: No - HEENT Hx HEENT Disorder: No - Renal Hx Renal Disorder: No - Endocrine/Metabolic Hx Endocrine Disorders: Yes Hx Diabetes Mellitus Type 1: Yes Hx Diabetes Mellitus Type 2: Yes - Hematological/Oncological Hx Blood Disorders: Yes Hx Anemia: Yes - Integumentary Hx Dermatological Disorder: No Hx Basal Cell Carcinoma: No - Musculoskeletal/Rheumatological Hx Musculoskeletal Disorders: Yes Hx Falls: Yes - Gastrointestinal Hx Gastrointestinal Disorders: No - Genitourinary/Gynecological Hx Genitourinary Disorders: No - Psychiatric Hx Psychophysiologic Disorder: No Hx Substance Use: No - Anesthesia Hx Anesthesia: No - Suicidal Assessment Feels Threatened In Home Enviroment: No Family/Social History - Physician Review Nursing Documentation Reviewed: Yes Family/Social History: Unknown Family HX Smoking Status: Never Smoked Hx Alcohol Use: No Hx Substance Use: No Hx Substance Use Treatment: No Allergies/Home Meds Allergies/Adverse Reactions: Allergies shrimp Adverse Reaction (Severe, Uncoded 05/28/18 13:49) ANAPHYLAXIS Home Medications: Home Meds Medication Instructions Recorded Confirmed Rosuvastatin Calcium [Crestor] 10 mg PO TID 05/28/18 01/31/19 Ferrous Sulfate [Feosol] 325 mg PO DAILY 10/31/18 01/31/19 Insulin Aspart Prot/Insuln Asp 0 unit SC PRN PRN 10/31/18 01/31/19 [Novolog Mix 70-30 Vial] Review of Systems - Physician Review All systems were reviewed & negative as marked: Yes - Review of Systems Gastrointestinal: Abdominal Pain (Abdominal pain with heavy menstrual cycle. ) Physical Exam - Physical Exam Narrative Physical Exam (Text): 01/31/19 13:45 Gen: VS reviewed, alert, well developed, well nourished, nontoxic, mild distress. ENT: normal pharynx. Eye: EOMI, PERRL. Neck: no JVD, supple, no adenopathy. CV: regular rate, regular rhythm, no rubs, no murmur, no gallops, S1, S2, pulses equal and strong. Pulm: no distress, clear to auscultation, no wheeze, no rhonchi, breath sounds equal, no rales. Abd: soft, nontender, no guarding, no rebound, no rigidity, normal bowel sounds. Ext: no edema. Skin: good color, no rash, no cyanosis. Psych: responds appropriately to questions, normal affect. Neuro: oriented x 3, CN2-12 intact grossly, motor intact, sensation intact Vital Signs Reviewed: Yes Vital Signs Temp Pulse Resp BP Pulse Ox 01/31/19 12:54 98.6 F 93 H 18 124/82 100 Temperature: Afebrile Blood Pressure: Normal Pulse: Regular Respiratory Rate: Normal Appearance: Positive for: Well-Appearing, Non-Toxic, Comfortable Pain Distress: Mild Mental Status: Positive for: Alert and Oriented X 3 Medical Decision Making ED Course and Treatment: 01/31/19 15:44 patient seen for a recurrent vaginal bleeding and pelvic cramping. patient has refused TV US. 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 - Lab Interpretations Narrative Lab Interpretation (Text): 01/31/19 15:44 01/31/19 15:20 Lab Results 01/31/19 15:20: WBC 7.1 D, RBC 3.93, Hgb 11.9 L, Hct 36.6, MCV 93.1, MCH 30.3, MCHC 32.5, RDW 13.3, Plt Count 279, MPV 10.6, Neut % (Auto) 51.2, Lymph % (Auto) 40.3 H, Mason % (Auto) 6.8 H, Eos % (Auto) 1.1 L, Baso % (Auto) 0.6, Lymph # (Auto) 2.8, Mason # (Auto) 0.5, Eos # (Auto) 0.1, Baso # (Auto) 0.04, Absolute Neuts (auto) 3.61 I have reviewed the lab results: Yes - RAD Interpretation Radiology Orders: 01/31/19 13:22 TRANSVAGINAL [US] Stat - Scribe Statement The provider has reviewed the documentation as recorded by the Scribe Elba Mccann All medical record entries made by the Scribe were at my direction and personally dictated by me. I have reviewed the chart and agree that the record accurately reflects my personal performance of the history, physical exam, medical decision making, and the department course for this patient. I have also personally directed, reviewed, and agree with the discharge instructions and disposition. Disposition/Present on Arrival - Present on Arrival Any Indicators Present on Arrival: No History of DVT/PE: No History of Uncontrolled Diabetes: Yes Urinary Catheter: No History of Decub. Ulcer: No History Surgical Site Infection Following: None - Disposition Have Diagnosis and Disposition been Completed?: Yes Diagnosis: Dysmenorrhea Disposition: HOME/ ROUTINE Disposition Time: 15:45 Patient Plan: Discharge Patient Problems: Current Active Problems Problem Status Onset Dysmenorrhea Acute Condition: STABLE Discharge Instructions (ExitCare): Heavy Periods Additional Instructions: call your coordinator of health services tomorrow to make a follow up appointment. Hb today is 11.9. UPT negative. Referrals: Ernst Burger MD [Primary Care Provider] - Follow up with primary Forms: Devario (Swedish)
[2019-01-31 15:21] VITALS: BP 113/67; PULSE 78; RESP 17
[2019-01-31 15:35] LABS: BASO # 0.04 K/mm3 (0.0-2.0); BASO % 0.6 % (0.0-3.0); EOS # 0.1 (0.0-0.7); EOS % 1.1 % (1.5-5.0); HEMOGLOBIN 11.9 g/dL (12.0-16.0); LYMPH # 2.8 (1.2-3.4); LYMPH % 40.3 % (22.0-35.0); MEAN CELL VOLUME 93.1 fl (80.0-105.0); MEAN CORPUSCULAR HEMOGLOBIN 30.3 pg (25.0-35.0); MEAN CORPUSCULAR HGB CONC 32.5 g/dl (31.0-37.0); MEAN PLATELET VOLUME 10.6 fl (7.0-11.0); MONO # 0.5 (0.1-0.6); MONO % 6.8 % (1.0-6.0); RBC 3.93 10^6/uL (3.5-6.1); RED CELL DISTRIBUTION WIDTH 13.3 % (11.5-14.5); WHITE BLOOD COUNT 7.1 10^3/uL (4.5-11.0)
== END 2019-01-31 16:22 | disposition home or self-care (01) ==
LOC: ED 12:39
DX: N94.6 Dysmenorrhea, unspecified (principal); E11.9 Type 2 diabetes mellitus without complications; E78.5 Hyperlipidemia, unspecified